=== PATIENT | male | born 1960 | race Caucasian/White ===

== ENCOUNTER 2016-11-14 23:06 | Inpatient (IN) | payer MEDICAID ==
[~2016-11-14] VITALS: Ht 180.3 cm; Wt 89.1 kg
[~2016-11-14 23:06] MED LIST: ANTIBIOTICS
[2016-11-15] MEDS ORDERED: morphine 4 MG/ML VIAL IV STA (04:39)
[2016-11-15] MEDS ORDERED: ONDANSETRON 4 MG INJ IV STA (04:39)
--- NOTE | 2016-11-15 04:55 | RADRPT ---
PROCEDURE: CT abdomen and pelvis without intravenous contrast. CLINICAL INDICATION: Pain. TECHNIQUE: CT of the abdomen/pelvis was performed utilizing axial images with reconstructions in s agittal and coronal planes. The administered radiation dose is CTDI 14.4 mGy, DLP 34.3 mGy-cm. COMPARISON: No pertinent prior examinations were submitted for comparison. FINDINGS: Visualized Chest: The visualized lung bases are clear. Abdomen: The spleen, gallbladder,and adrenal glands are unremarkable. There are mild peripancreatic fat in filtrative changes. No regional fluid collections are seen. The liver is diffusely decreased in at tenuation, compatible with hepatic steatosis. The kidneys are without hydronephrosis. No definite urinary calculi are seen. There is no evidence of bowel obstruction. The appendix is normal. No intra-abdominal free air is seen. There is no evidence of intra-abdominal adenopathy or free fluid. Pelvis: There is no evidence of pelvic adenopathy of free fluid. The prostate and bladder are unremarkable. Osseous structures: Unremarkable. IMPRESSION: Mild peripancreatic inflammatory changes compatible with acute pancreatitis. Hepatic steatosis. RPTAT: HIKT .David Bernstein MD, MD Date Time Electronically viewed and signed by .David Bernstein MD, on 11/15/2016 04:54 .T/
[2016-11-15] MEDS ORDERED: SOD CHLORIDE 0.9% 1,000 ML IV ONE (05:00)
[2016-11-15 05:58] LABS: ALBUMIN 4.5 g/dl (3.3-4.9)
[2016-11-15 05:59] LABS: POTASSIUM 4.5 mmol/L (3.5-5.1)
[2016-11-15 06:00] LABS: CREATININE 0.56 mg/dl (0.61-1.24)
[2016-11-15 06:01] LABS: ALBUMIN/GLOBULIN RATIO 1.15; BILIRUBIN,INDIRECT 0.6 mg/dl (0-1.1); BILIRUBIN,TOTAL 0.6 mg/dl (0.2-1.3); CALCIUM 9.2 mg/dl (8.4-10.2); TOTAL PROTEIN 8.4 g/dl (6.1-8.1)
[2016-11-15 06:28] LABS: BASOPHILS % 0.5 % (0.0-2.0); EOSINOPHILS # 0.1 10^3/ul (0.0-0.5); HEMATOCRIT 44.1 % (42.0-52.0); HEMOGLOBIN 15.1 g/dl (14.0-18.0); LYMPHOCYTES # 1.5 10^3/ul (0.8-2.9); LYMPHOCYTES % 19.5 % (15.0-51.0); MEAN CORPUSCULAR HEMOGLOBIN 30.9 pg (29.0-33.0); MEAN CORPUSCULAR HGB CONC 34.3 g/dl (32.0-37.0); MEAN CORPUSCULAR VOLUME 89.9 fl (82.0-101.0); MEAN PLATELET VOLUME 11.7 fl (7.4-10.4); MONOCYTE # 0.6 10^3/ul (0.3-0.9); NEUTROPHIL # 5.3 10^3/ul (1.6-7.5); PLATELET COUNT 159 10^3/UL (140-440); RED BLOOD COUNT 4.91 10^6/ul (4.70-6.10); RED CELL DISTRIBUTION WIDTH 13.3 % (11.5-14.5); UNCORRECTED WBC 7.5 10^3/ul (4.8-10.8); WHITE BLOOD COUNT 7.5 10^3/ul (4.8-10.8)
[2016-11-15 06:41] LABS: CONDITION 1
[2016-11-15] MEDS ORDERED: ACETAMINOPHEN 650 MG SUPP PR PRN (08:30)
[2016-11-15] MEDS ORDERED: ONDANSETRON 4 MG INJ IV PRN (08:30)
[2016-11-15] MEDS ORDERED: NACL 0.9% 3 ML SYG IV SCH (08:30)
--- NOTE | 2016-11-15 10:00 | HP ---
DATE OF ADMISSION: 11/15/2016 The patient is a 56-year-old male with no significant past medical history who presented to the [facility] with a chief complaint of abdominal pain. He stated that lately he has been having diffuse abdominal pain as well as bloating and a sensation of fullness. He reported nausea but no vomiting. When he presented to the ER, his vitals were stable. Laboratory value was notable for a lipase of 6600 and a glucose of around 280. CT abdomen and pelvis was done and it showed findings c ompatible with acute pancreatitis, and the patient will be hospitalized for that reason. He denied any chest pain, shortness of breath. REVIEW OF SYSTEMS: A 12-point review was performed, negative except as mentioned in HPI. PAST MEDICAL HISTORY: Denies. PAST SURGICAL HISTORY: Denies. SOCIAL HISTORY: Denied a history of alcohol, tobacco, or illicit drug use. ALLERGIES: NO KNOWN DRUG ALLERGIES. HOME MEDICATIONS: None. PHYSICAL EXAMINATION: VITAL SIGNS: Stable. GENERAL: No acute distress, answering questions appropriately, and able to speak in full sentences. HEENT: No obvious head deformity. Pupils are reactive to light. Extraocular muscles intact. CARDIOVASCULAR: Regular rate and rhythm. No extra sounds. LUNGS: Clear. ABDOMEN: Soft. There is tenderness diffusely to deep palpation with no guarding, no rebound tender ness, no rigidity. There are positive bowel sounds. EXTREMITIES: No edema. NEUROLOGIC: No focal deficits. LABORATORY: Glucose 288. Lipase almost 6600. IMAGING: CT abdomen and pelvis shows findings compatible with acute pancreatitis. IMPRESSION: 1. Acute pancreatitis. 2. Hypoglycemia. PLAN: Will keep n.p.o. He will receive IV fluids. As mentioned earlier, imaging did not show any gallstones and his liver enzymes are within normal limits. Will check his fasting lipid panel. The patient may also have undiagnosed diabetes given he presented with a glucose of almost 300. Will c heck an A1c. We will provide pain medication and antiemetics as needed. Additional imaging will be considered based on clinical course. Further workup and management per clinical course. Dictated By: XAVIER POLANCO/GALILEA Conf#: [id number] DID#: [id number]
[2016-11-15] MEDS: FAMOTIDINE 20 MG INJ IV SCH ×2 (10:13→21:33)
[2016-11-15] MEDS: SOD CHLORIDE 0.9% 1,000 ML IV SCH ×2 (10:13→17:55)
[2016-11-15 10:51] VITALS: BP 165/83; PULSE 70; RESP 18
[2016-11-15 10:57] VITALS: Ht 180.3 cm; Wt 89.1 kg
--- NOTE | 2016-11-15 11:19 | PN ---
Date/Time of Note Date/Time of Note DATE: 11/15/16 TIME: 11:16 Assessment/Plan VTE Prophylaxis VTE Prophylaxis Intervention: LMWH Lines/Catheters [facility] Saline Lock Assessment/Plan Chief Complaint/Hosp Course A/P: 1. Acute pancreatitis, stable. Continue IV fluids. Start diet in am. 2. Diabetes possibly new. Start diabetic education/insulin. 3. Probable alcohol use status post counseling. Had P1 4. Chronic hypertension/metabolic syndrome 5. Likely fatty liver disease Problems: Subjective 24 Hr Interval Summary Free Text/Dictation Hospitalist coverage: Less pain. No nausea vomiting. States he had milk lately. No previous pancreatitis. States he had 6 large beers. Denies any hard liquor Exam/Review of Systems Vital Signs Vitals Vital Signs Date Time Temp Pulse Resp B/P Pulse Ox O2 Delivery O2 Flow Rate FiO2 11/15/16 10:51 98.2 70 18 165/83 98 Room Air Exam Constitutional: alert Respiratory: clear to auscultation Cardiovascular: regular rate and rhythm Gastrointestinal: non-tender (nondistended, no RG. No flank ecchymosis.), soft Extremities: other (no edema) Results Result Diagram: 11/15/16 0427 11/15/16 0413 Results 24 hrs Laboratory Tests Test 11/15/16 04:13 11/15/16 04:27 Alanine Aminotransferase (ALT/SGPT) 25 Albumin 4.5 Albumin/Globulin Ratio 1.15 Alkaline Phosphatase 113 Anion Gap 22 H Aspartate Amino Transf (AST/SGOT) 20 Blood Urea Nitrogen 12 Calcium Level 9.2 Carbon Dioxide Level 26 Chloride Level 98 Creatinine 0.56 L Direct Bilirubin 0.00 Globulin 3.90 H Glucose Level 284 H Indirect Bilirubin 0.6 Lipase 6587 H Potassium Level 4.5 Sodium Level 141 Total Bilirubin 0.6 Total Protein 8.4 H Basophils # 0.0 Basophils % 0.5 Blood Morphology Comment Eosinophils # 0.1 Eosinophils % 1.0 Hematocrit 44.1 Hemoglobin 15.1 Lymphocytes # 1.5 Lymphocytes % 19.5 Mean Corpuscular Hemoglobin 30.9 Mean Corpuscular Hemoglobin Concent 34.3 Mean Corpuscular Volume 89.9 Mean Platelet Volume 11.7 H Monocytes # 0.6 Monocytes % 8.0 Neutrophils # 5.3 Neutrophils % 71.0 Nucleated Red Blood Cells # 0.0 Nucleated Red Blood Cells % 0.0 Platelet Count 159 Red Blood Count 4.91 Red Cell Distribution Width 13.3 White Blood Count 7.5 Medications Medications Current Medications Sodium Chloride (NS) 1,000 ml @ 125 mls/hr Q8H IV Last administered on 10:13; Admin Dose 125 MLS/HR; Start 11/15/16 at 08:02 Ondansetron HCl (Zofran Inj) 4 mg Q6H PRN IV NAUSEA AND/OR VOMITING; Start at 08:30 Acetaminophen (Tylenol Supp) 650 mg Q6H PRN [place] PAIN LEVEL 1-3 OR FEVER; Start 11/15/16 at 08:30 Morphine Sulfate (morphine) 4 mg Q4H PRN IV PAIN; Start 11/15/16 at 08:30 Famotidine (Pepcid Iv) 20 mg Q12 IV Last administered on 11/15/16 10:13; Admin Dose 20 MG; Start 11/15/16 at 09:00 RADAMES MONTES MD Nov 15, 2016 11:19
[2016-11-15] MEDS ORDERED: HYPOGLYCEMIA PROTOCOL when Glucose is <70 mg/dL or symptomatic <90 mg/dL. XX ONE (11:30)
[2016-11-15] MEDS ORDERED: Discontinue Glyburide, Glipizide, and/or Glimepiride prior to starting Insulin XX ONE (11:30)
[2016-11-15] MEDS ORDERED: GLUCOSE GEL 15 GRAM TUBE BUCCAL PRN (12:00)
[2016-11-15] MEDS ORDERED: GLUCAGON 1 MG INJ IM PRN (12:00)
[2016-11-15] MEDS ORDERED: DEXTROSE 50% 50 ML SYRINGE IV PRN ×2 (12:00)
[2016-11-15] MEDS ORDERED: GLUCOSE GEL 15 GRAM TUBE PO PRN ×2 (12:00)
[2016-11-15] MEDS: THIAMINE 100 MG TAB PO SCH (12:57)
[2016-11-15] MEDS: ENOXAPARIN 40 MG/0.4 ML SYG SC SCH (12:58)
[2016-11-15] MEDS: INSULIN ASPART [NOVOLOG] 3 ML PEN SC SCH ×5 (13:54→21:22)
[2016-11-15] MEDS ORDERED: DIATR MEGLU/DIATRIZOATE SODIUM 120 ML BTL ONE (15:58)
[2016-11-15 20:36] VITALS: BP 136/73; RESP 19
[2016-11-15] MEDS ORDERED: INSULIN GLARGINE [LANtus] 3 ML PEN SC SCH (21:00)
[2016-11-16] MEDS: ACCUCHECK XX SCH (02:00)
[2016-11-16] MEDS: SOD CHLORIDE 0.9% 1,000 ML IV SCH ×4 (03:50→22:38)
[2016-11-16 06:03] LABS: EOSINOPHILS # 0.1 10^3/ul (0.0-0.5); EOSINOPHILS % 1.1 % (0.0-7.0); HEMATOCRIT 41.7 % (42.0-52.0); HEMOGLOBIN 14.1 g/dl (14.0-18.0); LYMPHOCYTES # 1.9 10^3/ul (0.8-2.9); LYMPHOCYTES % 25.3 % (15.0-51.0); MEAN CORPUSCULAR HEMOGLOBIN 30.4 pg (29.0-33.0); MEAN CORPUSCULAR HGB CONC 33.9 g/dl (32.0-37.0); MEAN CORPUSCULAR VOLUME 89.6 fl (82.0-101.0); MONOCYTE # 0.5 10^3/ul (0.3-0.9); MONOCYTES % 6.8 % (0.0-11.0); NEUTROPHILS % 66.8 % (39.0-77.0); PLATELET COUNT 149 10^3/UL (140-440); RED BLOOD COUNT 4.66 10^6/ul (4.70-6.10); UNCORRECTED WBC 7.5 10^3/ul (4.8-10.8); WHITE BLOOD COUNT 7.5 10^3/ul (4.8-10.8)
[2016-11-16 06:10] LABS: INR 1.04; PROTIME 13.6 Sec (12.2-14.2); PT RATIO 1.1
[2016-11-16 06:18] LABS: ALBUMIN 3.3 g/dl (3.3-4.9)
[2016-11-16 06:21] LABS: ALBUMIN/GLOBULIN RATIO 1.13; BILIRUBIN,INDIRECT 0.5 mg/dl (0-1.1); BILIRUBIN,TOTAL 0.5 mg/dl (0.2-1.3); CREATININE 0.51 mg/dl (0.61-1.24); TOTAL PROTEIN 6.2 g/dl (6.1-8.1)
[2016-11-16 06:22] LABS: CALCIUM 8.4 mg/dl (8.4-10.2); CHOL/HDL RATIO 5.3 RATIO; MAGNESIUM 1.9 mg/dl (1.7-2.5); PHOSPHORUS 3.6 mg/dl (2.5-4.9)
[2016-11-16 06:27] LABS: CONDITION 1
[2016-11-16 07:24] LABS: LACTATE DEHYDROGENASE 490 IU/L (313-618)
[2016-11-16] MEDS: INSULIN ASPART [NOVOLOG] 3 ML PEN SC SCH ×7 (08:17→21:00)
[2016-11-16] MEDS: ENOXAPARIN 40 MG/0.4 ML SYG SC SCH (08:18)
[2016-11-16] MEDS: THIAMINE 100 MG TAB PO SCH (08:18)
[2016-11-16] MEDS: FAMOTIDINE 20 MG INJ IV SCH (08:18)
[2016-11-16 08:23] VITALS: BP 157/77; RESP 20
[2016-11-16] MEDS ORDERED: INFLUENZA VIRUS VACCINE 0.5 ML (DISPENSING) IM* ONE (09:00)
--- NOTE | 2016-11-16 10:48 | RADRPT ---
PROCEDURE: XR Chest. CLINICAL INDICATION: Cough TECHNIQUE: 2 AP views of the chest were obtained COMPARISON: None. FINDINGS: No focal airspace opacification, pleural effusion or pneumothorax is seen. The cardiomediastinal si lhouette is within normal limits for size. The osseous structures are unremarkable. IMPRESSION: No radiographic evidence of acute cardiopulmonary disease. RPTAT: HH .Ewelina Stephenson MD, MD Date Time Electronically viewed and signed by .Ewelina Stephenson MD, on 11/16/2016 10:48 .G/
[2016-11-16] MEDS: hydrALAzine 20 MG INJ IV PRN (12:05)
--- NOTE | 2016-11-16 15:27 | PN ---
Date/Time of Note Date/Time of Note DATE: 11/16/16 TIME: 15:23 Assessment/Plan VTE Prophylaxis VTE Prophylaxis Intervention: SCD's Lines/Catheters IV Catheter Type (from Nrs): Peripheral IV Assessment/Plan Chief Complaint/Hosp Course Assessment and plan 1. Acute pancreatitis. Patient did admit to drinking 3 40 ounces of beer a day. Patient advised about alcohol cessation. Continue on IV fluids on for now. Still noted with pain with pain on midepigastric area. Keep npo for now. 2. Suspect new onset diabetes. Patient noted with A1c of 11.4. bee worker following. Continue on insulin regimen for now. 3. History of hypertension. Continue antihypertensives and adjust as needed 4. Alcohol abuse. Patient educated about cessation. Disposition and plan: Await clinical improvement of pancreatitis. We'll start on diet once pain results. Discussed plan of care with Dr. Parker Problems: Subjective 24 Hr Interval Summary Free Text/Dictation Still reports having some abdominal pain on midepigastric area Exam/Review of Systems Vital Signs Vitals Vital Signs Date Time Temp Pulse Resp B/P Pulse Ox O2 Delivery O2 Flow Rate FiO2 11/16/16 08:23 99.2 85 20 157/77 97 11/15/16 10:51 Room Air Intake and Output 11/15/16 11/15/16 11/16/16 15:00 23:00 07:00 Intake Total 250 ml Balance 250 ml Exam General: No acute signs or symptoms of distress Eyes: pupils equal round, Anicteric sclera Neck: Supple nontender, no JVD Cardiac: S1, S2 auscultated, regular rhythm and rate Pulmonary: No coarse rhonchi or breathing auscultated GI: Pain upon palpation midepigastric area Extremities: No edema bilateral lower extremities Skin: Clean dry and intact Neurologic: Alert to person place and time and situation Results Result Diagram: 11/16/16 0507 11/16/16 0507 Results 24 hrs Laboratory Tests Test 11/15/16 17:12 11/15/16 21:13 11/16/16 02:25 11/16/16 05:07 Bedside Glucose 179 199 186 Alanine Aminotransferase (ALT/SGPT) 22 Albumin 3.3 # Albumin/Globulin Ratio 1.13 Alkaline Phosphatase 78 Anion Gap 15 # Aspartate Amino Transf (AST/SGOT) 15 Basophils # 0.0 Basophils % 0.0 Blood Morphology Comment Blood Urea Nitrogen 7 Calcium Level 8.4 Carbon Dioxide Level 25 Chloride Level 104 Cholesterol Level 171 Cholesterol/HDL Ratio 5.3 Creatinine 0.51 L Direct Bilirubin 0.00 Eosinophils # 0.1 Eosinophils % 1.1 Globulin 2.90 Glucose Level 169 # HDL Cholesterol 32 Hematocrit 41.7 L Hemoglobin 14.1 Hemoglobin A1c 11.4 H INR International Normalized Ratio 1.04 Indirect Bilirubin 0.5 LDL Cholesterol, Calculated 109 Lactate Dehydrogenase 490 Lipase 4553 H Lymphocytes # 1.9 Lymphocytes % 25.3 Magnesium Level 1.9 Mean Corpuscular Hemoglobin 30.4 Mean Corpuscular Hemoglobin Concent 33.9 Mean Corpuscular Volume 89.6 Mean Platelet Volume 11.0 H Monocytes # 0.5 Monocytes % 6.8 Neutrophils # 5.0 Neutrophils % 66.8 Nucleated Red Blood Cells # 0.0 Nucleated Red Blood Cells % 0.0 Phosphorus Level 3.6 Platelet Count 149 Potassium Level 4.0 Prothrombin Time 13.6 Prothrombin Time Ratio 1.1 Red Blood Count 4.66 L Red Cell Distribution Width 13.0 Sodium Level 140 Thyroid Stimulating Hormone (TSH) 1.330 Total Bilirubin 0.5 Total Protein 6.2 # Triglycerides Level 151 H White Blood Count 7.5 Test 11/16/16 07:56 11/16/16 11:55 Bedside Glucose 163 182 Medications Medications Current Medications Sodium Chloride (NS) 1,000 ml @ 125 mls/hr Q8H IV Last administered on 12:05; Admin Dose 125 MLS/HR; Start 11/15/16 at 08:02 Ondansetron HCl (Zofran Inj) 4 mg Q6H PRN IV NAUSEA AND/OR VOMITING; Start at 08:30 Acetaminophen (Tylenol Supp) 650 mg Q6H PRN [place] PAIN LEVEL 1-3 OR FEVER Last administered on 11/15/16 21:26; Admin Dose 650 MG; Start 11/15/16 at 08:30 Morphine Sulfate (morphine) 4 mg Q4H PRN IV PAIN; Start 11/15/16 at 08:30 Famotidine (Pepcid Iv) 20 mg Q12 IV Last administered on 11/16/16 08:18; Admin Dose 20 MG; Start 11/15/16 at 09:00 Thiamine HCl (Vitamin B1) 100 mg DAILY PO Last administered on 11/16/16 08:18 ; Admin Dose 100 MG; Start 11/15/16 at 11:30 Enoxaparin Sodium (Lovenox) 40 mg DAILY SC Last administered on 11/16/16 08:18 ; Admin Dose 40 MG; Start 11/15/16 at 11:30 Diagnostic Test (Pha) (Accucheck) 1 ea 02 XX Last administered on 11/16/16 02: 00; Admin Dose 1 EA; Start 11/16/16 at 02:00 Miscellaneous Information 1 ea NOTE XX ; Start 11/15/16 at 12:00 Glucose (Glutose) 15 gm Q15M PRN PO DECREASED GLUCOSE; Start 11/15/16 at 12:00 Glucose (Glutose) 22.5 gm Q15M PRN PO DECREASED GLUCOSE; Start 11/15/16 at 12: 00 Dextrose (D50w Syringe) 25 ml Q15M PRN IV DECREASED GLUCOSE; Start 11/15/16 at 12:00 Dextrose (D50w Syringe) 50 ml Q15M PRN IV DECREASED GLUCOSE; Start 11/15/16 at 12:00 Glucagon (Glucagen) 1 mg Q15M PRN IM DECREASED GLUCOSE; Start 11/15/16 at 12:00 Glucose (Glutose) 15 gm Q15M PRN BUCCAL DECREASED GLUCOSE; Start 11/15/16 at 12 :00 Insulin Glargine (Lantus) 13 unit HS SC ; Start 11/16/16 at 21:00 Hydralazine HCl (Apresoline) 10 mg Q4H PRN IV sbp>160 Last administered on 11/16 12:05; Admin Dose 10 MG; Start 11/16/16 at 11:00 PEGGY DOBSON Nov 16, 2016 15:27
[2016-11-16 19:39] VITALS: BP 151/68; RESP 18
[2016-11-16] MEDS: FAMOTIDINE 20 MG TAB PO SCH (21:01)
[2016-11-16] MEDS: INSULIN GLARGINE [LANtus] 3 ML PEN SC SCH (21:07)
[2016-11-17] MEDS: ACCUCHECK XX SCH (02:00)
[2016-11-17 06:02] LABS: BASOPHIL # 0.1 10^3/ul (0.0-0.1); BASOPHILS % 0.6 % (0.0-2.0); EOSINOPHILS # 0.1 10^3/ul (0.0-0.5); EOSINOPHILS % 1.2 % (0.0-7.0); HEMATOCRIT 41.5 % (42.0-52.0); HEMOGLOBIN 14.3 g/dl (14.0-18.0); LYMPHOCYTES % 21.8 % (15.0-51.0); MEAN CORPUSCULAR HEMOGLOBIN 30.8 pg (29.0-33.0); MEAN CORPUSCULAR HGB CONC 34.5 g/dl (32.0-37.0); MEAN CORPUSCULAR VOLUME 89.3 fl (82.0-101.0); MEAN PLATELET VOLUME 10.7 fl (7.4-10.4); MONOCYTE # 0.7 10^3/ul (0.3-0.9); MONOCYTES % 7.5 % (0.0-11.0); NEUTROPHIL # 6.2 10^3/ul (1.6-7.5); NEUTROPHILS % 68.9 % (39.0-77.0); PLATELET COUNT 165 10^3/UL (140-440); RED BLOOD COUNT 4.65 10^6/ul (4.70-6.10)
[2016-11-17 06:13] LABS: CONDITION 1
[2016-11-17] MEDS: SOD CHLORIDE 0.9% 1,000 ML IV SCH ×2 (06:19→17:22)
[2016-11-17 06:25] LABS: POTASSIUM 3.7 mmol/L (3.5-5.1)
[2016-11-17 06:27] LABS: CREATININE 0.52 mg/dl (0.61-1.24)
[2016-11-17 06:28] LABS: CALCIUM 8.5 mg/dl (8.4-10.2)
[2016-11-17 07:41] VITALS: BP 145/73; RESP 18
[2016-11-17] MEDS: INSULIN ASPART [NOVOLOG] 3 ML PEN SC SCH ×7 (08:00→20:27)
[2016-11-17] MEDS: morphine 4 MG/ML VIAL IV PRN ×2 (08:49→20:39)
[2016-11-17] MEDS: FAMOTIDINE 20 MG TAB PO SCH (08:49)
[2016-11-17] MEDS: THIAMINE 100 MG TAB PO SCH (08:49)
[2016-11-17] MEDS: ENOXAPARIN 40 MG/0.4 ML SYG SC SCH (08:51)
--- NOTE | 2016-11-17 13:57 | PN ---
Date/Time of Note Date/Time of Note DATE: 11/17/16 TIME: 13:56 Assessment/Plan VTE Prophylaxis VTE Prophylaxis Intervention: SCD's Lines/Catheters [facility]from [facility] Saline Lock Assessment/Plan Chief Complaint/Hosp Course Assessment and plan 1. Acute pancreatitis. Patient did admit to drinking 3 40 ounces of beer a day. Patient advised about alcohol cessation. Continue on IV fluids on for now. Still noted with pain with pain on midepigastric area. Keep npo for now. 2. Suspect new onset diabetes. Patient noted with A1c of 11.4. landing signal officer following. Continue on insulin regimen for now. 3. History of hypertension. Continue antihypertensives and adjust as needed 4. Alcohol abuse. Patient educated about cessation. Disposition and plan: Await clinical improvement of pancreatitis. Continue IV fluid. Monitor lipase. Start on oral diet once pain resolved Discussed plan of care with Dr. Parker Problems: Subjective 24 Hr Interval Summary Free Text/Dictation Still with abdominal pain. Reports little less today. No other specific complaints. Exam/Review of Systems Vital Signs Vitals Vital Signs Date Time Temp Pulse Resp B/P Pulse Ox O2 Delivery O2 Flow Rate FiO2 11/17/16 07:41 98.7 79 18 145/73 98 11/15/16 10:51 Room Air Intake and Output 11/16/16 11/16/16 11/17/16 14:59 22:59 06:59 Intake Total 1230 ml 2440 ml 1600 ml Balance 1230 ml 2440 ml 1600 ml Exam General: No acute signs or symptoms of distress Eyes: pupils equal round, Anicteric sclera Neck: Supple nontender, no JVD Cardiac: S1, S2 auscultated, regular rhythm and rate Pulmonary: No coarse rhonchi or breathing auscultated GI: Pain upon palpation midepigastric area Extremities: No edema bilateral lower extremities Skin: Clean dry and intact Neurologic: Alert to person place and time and situation Results Result Diagram: 11/17/16 0510 11/17/16 0510 Results 24 hrs Laboratory Tests Test 11/16/16 17:16 11/16/16 21:03 11/17/16 05:10 11/17/16 07:42 Bedside Glucose 124 116 119 Anion Gap 19 H Basophils # 0.1 Basophils % 0.6 Blood Morphology Comment Blood Urea Nitrogen 5 L Calcium Level 8.5 Carbon Dioxide Level 24 Chloride Level 103 Creatinine 0.52 L Eosinophils # 0.1 Eosinophils % 1.2 Glucose Level 118 # Hematocrit 41.5 L Hemoglobin 14.3 Lipase 4777 H Lymphocytes # 2.0 Lymphocytes % 21.8 Mean Corpuscular Hemoglobin 30.8 Mean Corpuscular Hemoglobin Concent 34.5 Mean Corpuscular Volume 89.3 Mean Platelet Volume 10.7 H Monocytes # 0.7 Monocytes % 7.5 Neutrophils # 6.2 Neutrophils % 68.9 Nucleated Red Blood Cells # 0.0 Nucleated Red Blood Cells % 0.0 Platelet Count 165 Potassium Level 3.7 Red Blood Count 4.65 L Red Cell Distribution Width 13.0 Sodium Level 142 White Blood Count 9.0 Test 11/17/16 11:23 Bedside Glucose 178 Medications Medications Current Medications Sodium Chloride (NS) 1,000 ml @ 125 mls/hr Q8H IV Last administered on 06:19; Admin Dose 125 MLS/HR; Start 11/15/16 at 08:02 Ondansetron HCl (Zofran Inj) 4 mg Q6H PRN IV NAUSEA AND/OR VOMITING; Start at 08:30 Acetaminophen (Tylenol Supp) 650 mg Q6H PRN [place] PAIN LEVEL 1-3 OR FEVER Last administered on 11/15/16 21:26; Admin Dose 650 MG; Start 11/15/16 at 08:30 Morphine Sulfate (morphine) 4 mg Q4H PRN IV PAIN Last administered on 08:49; Admin Dose 4 MG; Start 11/15/16 at 08:30 Thiamine HCl (Vitamin B1) 100 mg DAILY PO Last administered on 11/17/16 08:49 ; Admin Dose 100 MG; Start 11/15/16 at 11:30 Enoxaparin Sodium (Lovenox) 40 mg DAILY SC Last administered on 11/17/16 08:51 ; Admin Dose 40 MG; Start 11/15/16 at 11:30 Diagnostic Test (Pha) (Accucheck) 1 ea 02 XX Last administered on 11/16/16 02: 00; Admin Dose 1 EA; Start 11/16/16 at 02:00 Miscellaneous Information 1 ea NOTE XX ; Start 11/15/16 at 12:00 Glucose (Glutose) 15 gm Q15M PRN PO DECREASED GLUCOSE; Start 11/15/16 at 12:00 Glucose (Glutose) 22.5 gm Q15M PRN PO DECREASED GLUCOSE; Start 11/15/16 at 12: 00 Dextrose (D50w Syringe) 25 ml Q15M PRN IV DECREASED GLUCOSE; Start 11/15/16 at 12:00 Dextrose (D50w Syringe) 50 ml Q15M PRN IV DECREASED GLUCOSE; Start 11/15/16 at 12:00 Glucagon (Glucagen) 1 mg Q15M PRN IM DECREASED GLUCOSE; Start 11/15/16 at 12:00 Glucose (Glutose) 15 gm Q15M PRN BUCCAL DECREASED GLUCOSE; Start 11/15/16 at 12 :00 Insulin Glargine (Lantus) 13 unit HS SC Last administered on 11/16/16 21:07; Admin Dose 13 UNIT; Start 11/16/16 at 21:00 Hydralazine HCl (Apresoline) 10 mg Q4H PRN IV sbp>160 Last administered on 11/16 12:05; Admin Dose 10 MG; Start 11/16/16 at 11:00 Famotidine (Pepcid) 20 mg BID PO Last administered on 11/17/16 08:49; Admin Dose 20 MG; Start 11/16/16 at 21:00 PEGGY DOBSON Nov 17, 2016 13:57
[2016-11-17 20:26] VITALS: BP 158/79; RESP 20
[2016-11-17] MEDS: INSULIN GLARGINE [LANtus] 3 ML PEN SC SCH (20:41)
[2016-11-17] MEDS: FAMOTIDINE 20 MG INJ IV SCH (20:47)
[2016-11-17 22:54] VITALS: BP 165/77; PULSE 72
[2016-11-17] MEDS: hydrALAzine 20 MG INJ IV PRN (22:56)
[2016-11-18] MEDS: SOD CHLORIDE 0.9% 1,000 ML IV SCH ×3 (00:02→17:23)
[2016-11-18 00:05] VITALS: BP 144/74; PULSE 77
[2016-11-18] MEDS: ACCUCHECK XX SCH (01:47)
[2016-11-18 06:12] LABS: POTASSIUM 3.1 mmol/L (3.5-5.1)
[2016-11-18 06:15] LABS: CREATININE 0.57 mg/dl (0.61-1.24)
[2016-11-18 06:16] LABS: CALCIUM 8.4 mg/dl (8.4-10.2)
[2016-11-18 06:27] LABS: BASOPHILS % 0.4 % (0.0-2.0); EOSINOPHILS # 0.2 10^3/ul (0.0-0.5); EOSINOPHILS % 2.6 % (0.0-7.0); HEMATOCRIT 41.1 % (42.0-52.0); HEMOGLOBIN 13.8 g/dl (14.0-18.0); LYMPHOCYTES # 1.7 10^3/ul (0.8-2.9); LYMPHOCYTES % 23.5 % (15.0-51.0); MEAN CORPUSCULAR HEMOGLOBIN 30.4 pg (29.0-33.0); MEAN CORPUSCULAR HGB CONC 33.7 g/dl (32.0-37.0); MEAN CORPUSCULAR VOLUME 90.4 fl (82.0-101.0); MEAN PLATELET VOLUME 9.8 fl (7.4-10.4); MONOCYTE # 0.7 10^3/ul (0.3-0.9); MONOCYTES % 9.3 % (0.0-11.0); NEUTROPHIL # 4.5 10^3/ul (1.6-7.5); NEUTROPHILS % 64.2 % (39.0-77.0); PLATELET COUNT 174 10^3/UL (140-440); RED BLOOD COUNT 4.55 10^6/ul (4.70-6.10); UNCORRECTED WBC 7.1 10^3/ul (4.8-10.8); WHITE BLOOD COUNT 7.1 10^3/ul (4.8-10.8)
[2016-11-18 06:51] LABS: CONDITION 1
[2016-11-18 07:50] VITALS: BP 121/70; RESP 16
[2016-11-18] MEDS: INSULIN ASPART [NOVOLOG] 3 ML PEN SC SCH ×5 (08:00→20:06)
[2016-11-18] MEDS: FAMOTIDINE 20 MG INJ IV SCH ×2 (08:31→20:04)
[2016-11-18] MEDS: ENOXAPARIN 40 MG/0.4 ML SYG SC SCH (08:31)
[2016-11-18] MEDS ORDERED: POTASSIUM CHLORIDE 250 ML IVPB ONE (13:00)
--- NOTE | 2016-11-18 14:08 | PN ---
Date/Time of Note Date/Time of Note DATE: 11/18/16 TIME: 14:05 Assessment/Plan VTE Prophylaxis VTE Prophylaxis Intervention: SCD's Lines/Catheters IV Catheter Type (from Nrs): Saline Lock Assessment/Plan Chief Complaint/Hosp Course Assessment and plan 1. Acute pancreatitis. Patient did admit to drinking 3 40 ounces of beer a day. Patient advised about alcohol cessation. Continue on IV fluids on for now. Still noted with pain with pain on midepigastric area. But little less. Keep npo for now. 2. Suspect new onset diabetes. Patient noted with A1c of 11.4. cosmetology educator following. Continue on insulin regimen for now. 3. History of hypertension. Continue antihypertensives and adjust as needed 4. Alcohol abuse. Patient educated about cessation. Disposition and plan: Continue npo. Of note likely still levels are downward turning. We'll follow-up in a.m. We'll start on diet once pain resolved Discussed plan of care with Dr. Parker Problems: Subjective 24 Hr Interval Summary Free Text/Dictation Still with some abdominal pain but little less today Exam/Review of Systems Vital Signs Vitals Vital Signs Date Time Temp Pulse Resp B/P Pulse Ox O2 Delivery O2 Flow Rate FiO2 11/18/16 07:50 98.2 88 16 121/70 98 11/15/16 10:51 Room Air Intake and Output 11/17/16 11/17/16 11/18/16 15:00 23:00 07:00 Intake Total 1600 ml 1450 ml Balance 1600 ml 1450 ml Exam General: No acute signs or symptoms of distress Eyes: pupils equal round, Anicteric sclera Neck: Supple nontender, no JVD Cardiac: S1, S2 auscultated, regular rhythm and rate Pulmonary: No coarse rhonchi or breathing auscultated GI: Minimally tender on palpation of upper abdomen Extremities: No edema bilateral lower extremities Skin: Clean dry and intact Neurologic: Alert to person place and time and situation Results Result Diagram: 11/18/16 0550 11/18/16 0520 Results 24 hrs Laboratory Tests Test 11/17/16 17:26 11/17/16 19:52 11/18/16 01:48 11/18/16 05:00 Bedside Glucose 106 90 83 Lipase 3559 H Test 11/18/16 05:20 11/18/16 05:50 11/18/16 08:03 11/18/16 11:15 Anion Gap 15 Blood Urea Nitrogen 6 L Calcium Level 8.4 Carbon Dioxide Level 25 Chloride Level 105 Creatinine 0.57 L Glucose Level 75 # Potassium Level 3.1 L Sodium Level 142 Basophils # 0.0 Basophils % 0.4 Eosinophils # 0.2 Eosinophils % 2.6 Hematocrit 41.1 L Hemoglobin 13.8 L Lymphocytes # 1.7 Lymphocytes % 23.5 Mean Corpuscular Hemoglobin 30.4 Mean Corpuscular Hemoglobin Concent 33.7 Mean Corpuscular Volume 90.4 Mean Platelet Volume 9.8 Monocytes # 0.7 Monocytes % 9.3 Neutrophils # 4.5 Neutrophils % 64.2 Nucleated Red Blood Cells # 0.0 Nucleated Red Blood Cells % 0.0 Platelet Count 174 Red Blood Count 4.55 L Red Cell Distribution Width 13.0 White Blood Count 7.1 # Bedside Glucose 92 86 Medications Medications Current Medications Sodium Chloride (NS) 1,000 ml @ 125 mls/hr Q8H IV Last administered on 01:49; Admin Dose 125 MLS/HR; Start 11/15/16 at 08:02 Ondansetron HCl (Zofran Inj) 4 mg Q6H PRN IV NAUSEA AND/OR VOMITING; Start at 08:30 Acetaminophen (Tylenol Supp) 650 mg Q6H PRN [place] PAIN LEVEL 1-3 OR FEVER Last administered on 11/15/16 21:26; Admin Dose 650 MG; Start 11/15/16 at 08:30 Morphine Sulfate (morphine) 4 mg Q4H PRN IV PAIN Last administered on 20:39; Admin Dose 4 MG; Start 11/15/16 at 08:30 Enoxaparin Sodium (Lovenox) 40 mg DAILY SC Last administered on 11/18/16 08:31 ; Admin Dose 40 MG; Start 11/15/16 at 11:30 Diagnostic Test (Pha) (Accucheck) 1 ea 02 XX Last administered on 11/16/16 02: 00; Admin Dose 1 EA; Start 11/16/16 at 02:00 Miscellaneous Information 1 ea NOTE XX ; Start 11/15/16 at 12:00 Glucose (Glutose) 15 gm Q15M PRN PO DECREASED GLUCOSE; Start 11/15/16 at 12:00 Glucose (Glutose) 22.5 gm Q15M PRN PO DECREASED GLUCOSE; Start 11/15/16 at 12: 00 Dextrose (D50w Syringe) 25 ml Q15M PRN IV DECREASED GLUCOSE; Start 11/15/16 at 12:00 Dextrose (D50w Syringe) 50 ml Q15M PRN IV DECREASED GLUCOSE; Start 11/15/16 at 12:00 Glucagon (Glucagen) 1 mg Q15M PRN IM DECREASED GLUCOSE; Start 11/15/16 at 12:00 Glucose (Glutose) 15 gm Q15M PRN BUCCAL DECREASED GLUCOSE; Start 11/15/16 at 12 :00 Insulin Glargine (Lantus) 13 unit HS SC Last administered on 11/17/16 20:41; Admin Dose 13 UNIT; Start 11/16/16 at 21:00 Hydralazine HCl (Apresoline) 10 mg Q4H PRN IV sbp>160 Last administered on 11/17 22:56; Admin Dose 10 MG; Start 11/16/16 at 11:00 Famotidine 20 mg 20 mg BID IV Last administered on 11/18/16 08:31; Admin Dose 20 MG; Start 11/17/16 at 21:00 Potassium Chloride (KCl 40 MEQ/250 ML NS) 250 ml @ 62.5 mls/hr ONCE ONCE IVPB Last administered on 11/18/16 12:27; Admin Dose 62.5 MLS/HR; Start 11/18/16 at 13:00; Stop 11/18/16 at 16:59 PEGGY DOBSON Nov 18, 2016 14:08
[2016-11-18] MEDS: hydrALAzine 20 MG INJ IV PRN (19:57)
[2016-11-18] MEDS: INSULIN GLARGINE [LANtus] 3 ML PEN SC SCH (20:06)
[2016-11-18 20:19] VITALS: BP 171/80; RESP 19
[2016-11-19 00:27] VITALS: BP 133/63
[2016-11-19] MEDS: SOD CHLORIDE 0.9% 1,000 ML IV SCH (00:33)
[2016-11-19] MEDS: ACCUCHECK XX SCH (02:00)
[2016-11-19] MEDS: DEXTROSE 5%-0.45% NACL 1,000 ML IV SCH ×2 (03:00→12:16)
[2016-11-19 05:42] LABS: BASOPHILS % 0.4 % (0.0-2.0); EOSINOPHILS # 0.2 10^3/ul (0.0-0.5); EOSINOPHILS % 2.5 % (0.0-7.0); HEMATOCRIT 39.9 % (42.0-52.0); HEMOGLOBIN 13.8 g/dl (14.0-18.0); LYMPHOCYTES # 1.9 10^3/ul (0.8-2.9); LYMPHOCYTES % 28.2 % (15.0-51.0); MEAN CORPUSCULAR HEMOGLOBIN 30.8 pg (29.0-33.0); MEAN CORPUSCULAR HGB CONC 34.6 g/dl (32.0-37.0); MEAN CORPUSCULAR VOLUME 88.9 fl (82.0-101.0); MONOCYTE # 0.6 10^3/ul (0.3-0.9); MONOCYTES % 9.6 % (0.0-11.0); NEUTROPHIL # 3.9 10^3/ul (1.6-7.5); NEUTROPHILS % 59.3 % (39.0-77.0); PLATELET COUNT 207 10^3/UL (140-440); RED BLOOD COUNT 4.49 10^6/ul (4.70-6.10); RED CELL DISTRIBUTION WIDTH 12.7 % (11.5-14.5); UNCORRECTED WBC 6.7 10^3/ul (4.8-10.8); WHITE BLOOD COUNT 6.7 10^3/ul (4.8-10.8)
[2016-11-19 06:09] LABS: POTASSIUM 3.3 mmol/L (3.5-5.1)
[2016-11-19 06:12] LABS: CREATININE 0.56 mg/dl (0.61-1.24)
[2016-11-19 06:13] LABS: CALCIUM 8.6 mg/dl (8.4-10.2)
[2016-11-19 06:14] LABS: CONDITION 1
[2016-11-19] MEDS: INSULIN ASPART [NOVOLOG] 3 ML PEN SC SCH ×4 (08:00→20:15)
[2016-11-19 08:04] VITALS: BP 135/63; RESP 18
[2016-11-19] MEDS: FAMOTIDINE 20 MG INJ IV SCH ×2 (08:24→21:10)
[2016-11-19] MEDS: ENOXAPARIN 40 MG/0.4 ML SYG SC SCH (08:25)
[2016-11-19] MEDS ORDERED: POTASSIUM CHLORIDE 20 MEQ in DEXTROSE 5%-0.45% NACL 1,000 ML IV SCH (12:22)
--- NOTE | 2016-11-19 13:19 | PN ---
Date/Time of Note Date/Time of Note DATE: 11/19/16 TIME: 13:17 Assessment/Plan VTE Prophylaxis VTE Prophylaxis Intervention: SCD's Lines/Catheters [facility]ter Type (from [facility]): Peripheral IV Urinary Cath still in place: No Assessment/Plan Chief Complaint/Hosp Course Assessment and plan 1. Acute pancreatitis. Patient did admit to drinking 3 40 ounces of beer a day. Patient advised about alcohol cessation. Continue on IV fluids for now. Still with elevated lipase above 3000. Keep npo for now. 2. Suspect new onset diabetes. Patient noted with A1c of 11.4. telehealth nurse educator following. Continue on insulin regimen for now. 3. History of hypertension. Continue antihypertensives and adjust as needed 4. Alcohol abuse. Patient educated about cessation. 5. Hypokalemia. Will monitor and replete as needed Disposition and plan: Discussed with Dr. Parker, Lipase remains elevated. Continue npo for now. Will await further downward trend of lipase Discussed plan of care with Dr. Parker Problems: Subjective 24 Hr Interval Summary Free Text/Dictation no reported abd pain today Exam/Review of Systems Vital Signs Vitals Vital Signs Date Time Temp Pulse Resp B/P Pulse Ox O2 Delivery O2 Flow Rate FiO2 11/19/16 08:04 98.1 73 18 135/63 96 11/15/16 10:51 Room Air Intake and Output 11/18/16 11/18/16 11/19/16 15:00 23:00 07:00 Intake Total 800 ml 1500 ml Balance 800 ml 1500 ml Exam General: No acute signs or symptoms of distress Eyes: pupils equal round, Anicteric sclera Neck: Supple nontender, no JVD Cardiac: S1, S2 auscultated, regular rhythm and rate Pulmonary: No coarse rhonchi or breathing auscultated GI: Minimally tender on palpation of upper abdomen Extremities: No edema bilateral lower extremities Skin: Clean dry and intact Neurologic: Alert to person place and time and situation Results Result Diagram: 11/19/1643911/19/16439 Results 24 hrs Laboratory Tests Test 11/18/16 16:40 11/18/16 19:41 11/19/16 02:01 11/19/16 02:26 Bedside Glucose 71 77 64 L 116 Test 11/19/16 02:41 11/19/16 04:40 11/19/16 07:49 11/19/16 12:11 Bedside Glucose 110 130 149 Anion Gap 16 Basophils # 0.0 Basophils % 0.4 Blood Urea Nitrogen 7 Calcium Level 8.6 Carbon Dioxide Level 23 Chloride Level 106 Creatinine 0.56 L Eosinophils # 0.2 Eosinophils % 2.5 Glucose Level 108 Hematocrit 39.9 L Hemoglobin 13.8 L Lipase 3423 H Lymphocytes # 1.9 Lymphocytes % 28.2 Mean Corpuscular Hemoglobin 30.8 Mean Corpuscular Hemoglobin Concent 34.6 Mean Corpuscular Volume 88.9 Mean Platelet Volume 10.0 Monocytes # 0.6 Monocytes % 9.6 Neutrophils # 3.9 Neutrophils % 59.3 Nucleated Red Blood Cells # 0.0 Nucleated Red Blood Cells % 0.0 Platelet Count 207 Potassium Level 3.3 L Red Blood Count 4.49 L Red Cell Distribution Width 12.7 Sodium Level 142 White Blood Count 6.7 Medications Medications Current Medications Ondansetron HCl (Zofran Inj) 4 mg Q6H PRN IV NAUSEA AND/OR VOMITING; Start at 08:30 Acetaminophen (Tylenol Supp) 650 mg Q6H PRN [place] PAIN LEVEL 1-3 OR FEVER Last administered on 11/15/16 21:26; Admin Dose 650 MG; Start 11/15/16 at 08:30 Morphine Sulfate (morphine) 4 mg Q4H PRN IV PAIN Last administered on 20:39; Admin Dose 4 MG; Start 11/15/16 at 08:30 Enoxaparin Sodium (Lovenox) 40 mg DAILY SC Last administered on 11/19/16 08:25 ; Admin Dose 40 MG; Start 11/15/16 at 11:30 Diagnostic Test (Pha) (Accucheck) 1 ea 02 XX Last administered on 11/16/16 02: 00; Admin Dose 1 EA; Start 11/16/16 at 02:00 Miscellaneous Information 1 ea NOTE XX ; Start 11/15/16 at 12:00 Glucose (Glutose) 15 gm Q15M PRN PO DECREASED GLUCOSE; Start 11/15/16 at 12:00 Glucose (Glutose) 22.5 gm Q15M PRN PO DECREASED GLUCOSE; Start 11/15/16 at 12: 00 Dextrose (D50w Syringe) 25 ml Q15M PRN IV DECREASED GLUCOSE Last administered on 11/19/16 02:10; Admin Dose 25 ML; Start 11/15/16 at 12:00 Dextrose (D50w Syringe) 50 ml Q15M PRN IV DECREASED GLUCOSE; Start 11/15/16 at 12:00 Glucagon (Glucagen) 1 mg Q15M PRN IM DECREASED GLUCOSE; Start 11/15/16 at 12:00 Glucose (Glutose) 15 gm Q15M PRN BUCCAL DECREASED GLUCOSE; Start 11/15/16 at 12 :00 Insulin Glargine (Lantus) 13 unit HS SC Last administered on 11/18/16 20:06; Admin Dose 13 UNIT; Start 11/16/16 at 21:00 Hydralazine HCl (Apresoline) 10 mg Q4H PRN IV sbp>160 Last administered on 11/18 19:57; Admin Dose 10 MG; Start 11/16/16 at 11:00 Famotidine 20 mg 20 mg BID IV Last administered on 11/19/16 08:24; Admin Dose 20 MG; Start 11/17/16 at 21:00 Potassium Chloride/Dextrose/ Sod Cl (D5-1/2ns + KCl 20 Meq) 1,000 ml @ 100 mls/ hr Q10H IV ; Start 11/19/16 at 12:30 PEGGY DOBSON Nov 19, 2016 13:19
[2016-11-19] MEDS: D5W-0.45 NACL + KCL 20 MEQ 1,000 ML IV SCH ×2 (14:14→22:31)
[2016-11-19 20:27] VITALS: BP 180/88; RESP 20
[2016-11-19] MEDS: hydrALAzine 20 MG INJ IV PRN (21:10)
[2016-11-19] MEDS: INSULIN GLARGINE [LANtus] 3 ML PEN SC SCH (21:14)
[2016-11-19 22:30] VITALS: BP 169/82
[2016-11-19 23:15] VITALS: BP 172/86
[2016-11-19] MEDS: hydrALAzine 20 MG INJ IV SCH (23:21)
[2016-11-20] MEDS: ACCUCHECK XX SCH ×2 (01:26→21:24)
[2016-11-20 05:35] VITALS: BP 158/79
[2016-11-20] MEDS: hydrALAzine 20 MG INJ IV SCH ×3 (05:35→21:27)
[2016-11-20 06:12] LABS: POTASSIUM 3.4 mmol/L (3.5-5.1)
[2016-11-20 06:13] LABS: EOSINOPHILS # 0.2 10^3/ul (0.0-0.5); EOSINOPHILS % 3.1 % (0.0-7.0); HEMATOCRIT 41.6 % (42.0-52.0); HEMOGLOBIN 13.9 g/dl (14.0-18.0); LYMPHOCYTES # 1.6 10^3/ul (0.8-2.9); LYMPHOCYTES % 23.2 % (15.0-51.0); MEAN CORPUSCULAR HEMOGLOBIN 30.4 pg (29.0-33.0); MEAN CORPUSCULAR HGB CONC 33.5 g/dl (32.0-37.0); MEAN CORPUSCULAR VOLUME 90.8 fl (82.0-101.0); MONOCYTE # 0.7 10^3/ul (0.3-0.9); MONOCYTES % 10.9 % (0.0-11.0); NEUTROPHIL # 4.2 10^3/ul (1.6-7.5); NEUTROPHILS % 62.8 % (39.0-77.0); PLATELET COUNT 210 10^3/UL (140-440); RED BLOOD COUNT 4.58 10^6/ul (4.70-6.10); RED CELL DISTRIBUTION WIDTH 12.7 % (11.5-14.5); UNCORRECTED WBC 6.7 10^3/ul (4.8-10.8); WHITE BLOOD COUNT 6.7 10^3/ul (4.8-10.8)
[2016-11-20 06:14] LABS: CREATININE 0.5 mg/dl (0.61-1.24)
[2016-11-20 06:15] LABS: CALCIUM 8.4 mg/dl (8.4-10.2)
[2016-11-20 07:01] LABS: CONDITION 1
[2016-11-20 07:48] VITALS: BP 128/74; RESP 20
[2016-11-20] MEDS: FAMOTIDINE 20 MG INJ IV SCH ×2 (09:13→20:38)
[2016-11-20] MEDS: D5W-0.45 NACL + KCL 20 MEQ 1,000 ML IV SCH ×2 (09:13→21:27)
[2016-11-20] MEDS: ENOXAPARIN 40 MG/0.4 ML SYG SC SCH (09:14)
[2016-11-20] MEDS: INSULIN ASPART [NOVOLOG] 3 ML PEN SC SCH ×4 (09:15→20:37)
--- NOTE | 2016-11-20 11:23 | CONS ---
Date/Time of Note Date/Time of Note DATE: 11/20/16 TIME: 11:23 Assessment/Plan Assessment/Plan Additional Assessment/Plan Pancreatitis * MRCP * Review labs * IVF hydration * N.p.o. Alcohol abuse * Encourage abstinence Hypertension Diabetes? Further recommendations depend on clinical course Consultation Date/Type/Reason Admit Date/Time Nov 15, 2016 at 05:25 Type of Consultation: Gastroenterology Reason for Consultation Pancreatitis Hx of Present Illness 56-year-old male that first presented to ED with reports of intense abdominal pain and nausea 1 day. At admission lipase at 6587. Patient has been n.p.o. since November 15 and there is little improvement in lipase level. Presently elevated at 4495. At bedside, patient denies abdominal pain, nausea, vomiting, and diarrhea. Patient denies previous episode and history of liver disease. Patient reports drinking 12-15 beers per day and reports excessive alcohol consumption throughout most of his life. Patient denies previous reports of elevated liver enzymes and or liver problems. Patient reports not having any medical evaluations in lifetime. Plan for MRCP and evaluation of labs. Patient may need ERCP if clinically indicated. Patient and family advised of R/ B/A of procedure and are agreeable to proceed. Past Medical History Medical History: no pertinent history Past Surgical History Past Surgical Hx: no surgical history Social History Alcohol Use: heavy (At 215 beers a day) Smoking Status: Never smoker Exam/Review of Systems Vital Signs Vitals Vital Signs Date Time Temp Pulse Resp B/P Pulse Ox O2 Delivery O2 Flow Rate FiO2 11/20/16 07:48 98.1 90 20 128/74 96 Intake and Output 11/19/16 11/19/16 11/20/16 15:00 23:00 07:00 Intake Total 900 ml 850 ml 650 ml Balance 900 ml 850 ml 650 ml Exam Constitutional: alert, obese, oriented, well developed Psych: nl mood/affect Head: normocephalic Eyes: EOMI, nl conjunctiva, nl lids, nl sclera ENMT: nl external ears & nose, nl lips & teeth, nl nasal mucosa & septum Respiratory: normal air movement Cardiovascular: regular rate and rhythm Gastrointestinal: non-tender, soft Neurological: ACTIVITIES OFFICER II-XII intact Results Result Diagram: 11/20/16 0430 11/20/16 0430 Results 24 hrs Laboratory Tests Test 11/19/16 12:11 11/19/16:08 11/19/16 20:05 11/20/16 04:30 Bedside Glucose 149 151 163 Anion Gap 15 Basophils # 0.0 Basophils % 0.0 Blood Urea Nitrogen 4 L Calcium Level 8.4 Carbon Dioxide Level 24 Chloride Level 106 Creatinine 0.50 L Eosinophils # 0.2 Eosinophils % 3.1 Glucose Level 168 Hematocrit 41.6 L Hemoglobin 13.9 L Lipase 4495 H Lymphocytes # 1.6 Lymphocytes % 23.2 Mean Corpuscular Hemoglobin 30.4 Mean Corpuscular Hemoglobin Concent 33.5 Mean Corpuscular Volume 90.8 Mean Platelet Volume 10.0 Monocytes # 0.7 Monocytes % 10.9 Neutrophils # 4.2 Neutrophils % 62.8 Nucleated Red Blood Cells # 0.0 Nucleated Red Blood Cells % 0.0 Platelet Count 210 Potassium Level 3.4 L Red Blood Count 4.58 L Red Cell Distribution Width 12.7 Sodium Level 142 White Blood Count 6.7 Test 11/20/16 07:55 Bedside Glucose 182 Medications Medications Current Medications Ondansetron HCl (Zofran Inj) 4 mg Q6H PRN IV NAUSEA AND/OR VOMITING; Start at 08:30 Acetaminophen (Tylenol Supp) 650 mg Q6H PRN [place] PAIN LEVEL 1-3 OR FEVER Last administered on 11/15/16 21:26; Admin Dose 650 MG; Start 11/15/16 at 08:30 Morphine Sulfate (morphine) 4 mg Q4H PRN IV PAIN Last administered on 20:39; Admin Dose 4 MG; Start 11/15/16 at 08:30 Enoxaparin Sodium (Lovenox) 40 mg DAILY SC Last administered on 11/20/16 09:14 ; Admin Dose 40 MG; Start 11/15/16 at 11:30 Diagnostic Test (Pha) (Accucheck) 1 ea 02 XX Last administered on 11/16/16 02: 00; Admin Dose 1 EA; Start 11/16/16 at 02:00 Miscellaneous Information 1 ea NOTE XX ; Start 11/15/16 at 12:00 Glucose (Glutose) 15 gm Q15M PRN PO DECREASED GLUCOSE; Start 11/15/16 at 12:00 Glucose (Glutose) 22.5 gm Q15M PRN PO DECREASED GLUCOSE; Start 11/15/16 at 12: 00 Dextrose (D50w Syringe) 25 ml Q15M PRN IV DECREASED GLUCOSE Last administered on 11/19/16 02:10; Admin Dose 25 ML; Start 11/15/16 at 12:00 Dextrose (D50w Syringe) 50 ml Q15M PRN IV DECREASED GLUCOSE; Start 11/15/16 at 12:00 Glucagon (Glucagen) 1 mg Q15M PRN IM DECREASED GLUCOSE; Start 11/15/16 at 12:00 Glucose (Glutose) 15 gm Q15M PRN BUCCAL DECREASED GLUCOSE; Start 11/15/16 at 12 :00 Insulin Glargine (Lantus) 13 unit HS SC Last administered on 11/19/16 21:14; Admin Dose 13 UNIT; Start 11/16/16 at 21:00 Hydralazine HCl (Apresoline) 10 mg Q4H PRN IV sbp>160 Last administered on 11/19 21:10; Admin Dose 10 MG; Start 11/16/16 at 11:00 Famotidine 20 mg 20 mg BID IV Last administered on 11/20/16 09:13; Admin Dose 20 MG; Start 11/17/16 at 21:00 Potassium Chloride/Dextrose/ Sod Cl (D5-1/2ns + KCl 20 Meq) 1,000 ml @ 100 mls/ hr Q10H IV Last administered on 11/20/16 09:13; Admin Dose 100 MLS/HR; Start 11/19/16 at 12:30 Hydralazine HCl 10 mg 10 mg Q8 IV Last administered on 11/20/16 05:35; Admin Dose 10 MG; Start 11/19/16 at 23:00 Potassium Chloride/Sodium Chloride (KCl/NS) 110 ml @ 55 mls/hr ONCE ONCE IVPB ; Start 11/20/16 at 12:00; Stop 11/20/16 at 13:59 JOSÉ MIGUEL GREGORY MD Nov 20, 2016 11:23
[2016-11-20] MEDS ORDERED: POTASSIUM CHLORIDE 20 MEQ in SOD CHLORIDE 0.9% 100 ML IVPB ONE (12:00)
--- NOTE | 2016-11-20 12:14 | PN ---
Date/Time of Note Date/Time of Note DATE: 11/20/16 TIME: 12:13 Assessment/Plan VTE Prophylaxis VTE Prophylaxis Intervention: SCD's Lines/Catheters [facility] Type (from [facility]): Peripheral IV Urinary Cath still in place: No Assessment/Plan Chief Complaint/Hosp Course Assessment and plan 1. Acute pancreatitis. Patient did admit to drinking 3 40 ounces of beer a day. Patient advised about alcohol cessation. Continue on IV fluids for now. Lipase level worsening. Gl Accountant to be consulted 2. Suspect new onset diabetes. Patient noted with A1c of 11.4. novelty twister tender following. Continue on insulin regimen for now. 3. History of hypertension. Continue antihypertensives and adjust as needed 4. Alcohol abuse. Patient educated about cessation. 5. Hypokalemia. Will monitor and replete as needed Disposition and plan: Discussed with Dr. Parker, Lipase remains elevated. We'll get brush material preparer to follow Discussed plan of care with Dr. Parker Problems: Subjective 24 Hr Interval Summary Free Text/Dictation No abdominal pain at this time. Exam/Review of Systems Vital Signs Vitals Vital Signs Date Time Temp Pulse Resp B/P Pulse Ox O2 Delivery O2 Flow Rate FiO2 11/20/16 07:48 98.1 90 20 128/74 96 Intake and Output 11/19/16 11/19/16 11/20/16 14:59 22:59 06:59 Intake Total 900 ml 850 ml 650 ml Balance 900 ml 850 ml 650 ml Exam General: No acute signs or symptoms of distress Eyes: pupils equal round, Anicteric sclera Neck: Supple nontender, no JVD Cardiac: S1, S2 auscultated, regular rhythm and rate Pulmonary: No coarse rhonchi or breathing auscultated GI: Abdomen soft nontender nondistended, bowel sounds active Extremities: No edema bilateral lower extremities Skin: Clean dry and intact Neurologic: Alert to person place and time and situation Results Result Diagram: 11/20/1642911/20/16 043 Results 24 hrs Laboratory Tests Test 11/19/16 17:08 11/19/16 20:05 11/20/16 04:30 11/20/16 07:55 Bedside Glucose 151 163 182 Anion Gap 15 Basophils # 0.0 Basophils % 0.0 Blood Urea Nitrogen 4 L CA 19-9 Antigen 9.5 Calcium Level 8.4 Carbon Dioxide Level 24 Chloride Level 106 Creatinine 0.50 L Eosinophils # 0.2 Eosinophils % 3.1 Glucose Level 168 Hematocrit 41.6 L Hemoglobin 13.9 L Lipase 4495 H Lymphocytes # 1.6 Lymphocytes % 23.2 Mean Corpuscular Hemoglobin 30.4 Mean Corpuscular Hemoglobin Concent 33.5 Mean Corpuscular Volume 90.8 Mean Platelet Volume 10.0 Monocytes # 0.7 Monocytes % 10.9 Neutrophils # 4.2 Neutrophils % 62.8 Nucleated Red Blood Cells # 0.0 Nucleated Red Blood Cells % 0.0 Platelet Count 210 Potassium Level 3.4 L Red Blood Count 4.58 L Red Cell Distribution Width 12.7 Sodium Level 142 White Blood Count 6.7 Test 11/20/16 11:26 Bedside Glucose 161 Medications Medications Current Medications Ondansetron HCl (Zofran Inj) 4 mg Q6H PRN IV NAUSEA AND/OR VOMITING; Start at 08:30 Acetaminophen (Tylenol Supp) 650 mg Q6H PRN [place] PAIN LEVEL 1-3 OR FEVER Last administered on 11/15/16 21:26; Admin Dose 650 MG; Start 11/15/16 at 08:30 Morphine Sulfate (morphine) 4 mg Q4H PRN IV PAIN Last administered on 20:39; Admin Dose 4 MG; Start 11/15/16 at 08:30 Enoxaparin Sodium (Lovenox) 40 mg DAILY SC Last administered on 11/20/16 09:14 ; Admin Dose 40 MG; Start 11/15/16 at 11:30 Diagnostic Test (Pha) (Accucheck) 1 ea 02 XX Last administered on 11/16/16 02: 00; Admin Dose 1 EA; Start 11/16/16 at 02:00 Miscellaneous Information 1 ea NOTE XX ; Start 11/15/16 at 12:00 Glucose (Glutose) 15 gm Q15M PRN PO DECREASED GLUCOSE; Start 11/15/16 at 12:00 Glucose (Glutose) 22.5 gm Q15M PRN PO DECREASED GLUCOSE; Start 11/15/16 at 12: 00 Dextrose (D50w Syringe) 25 ml Q15M PRN IV DECREASED GLUCOSE Last administered on 11/19/16 02:10; Admin Dose 25 ML; Start 11/15/16 at 12:00 Dextrose (D50w Syringe) 50 ml Q15M PRN IV DECREASED GLUCOSE; Start 11/15/16 at 12:00 Glucagon (Glucagen) 1 mg Q15M PRN IM DECREASED GLUCOSE; Start 11/15/16 at 12:00 Glucose (Glutose) 15 gm Q15M PRN BUCCAL DECREASED GLUCOSE; Start 11/15/16 at 12 :00 Insulin Glargine (Lantus) 13 unit HS SC Last administered on 11/19/16 21:14; Admin Dose 13 UNIT; Start 11/16/16 at 21:00 Hydralazine HCl (Apresoline) 10 mg Q4H PRN IV sbp>160 Last administered on 11/19 21:10; Admin Dose 10 MG; Start 11/16/16 at 11:00 Famotidine 20 mg 20 mg BID IV Last administered on 11/20/16 09:13; Admin Dose 20 MG; Start 11/17/16 at 21:00 Potassium Chloride/Dextrose/ Sod Cl (D5-1/2ns + KCl 20 Meq) 1,000 ml @ 100 mls/ hr Q10H IV Last administered on 11/20/16 09:13; Admin Dose 100 MLS/HR; Start 11/19/16 at 12:30 Hydralazine HCl 10 mg 10 mg Q8 IV Last administered on 11/20/16 05:35; Admin Dose 10 MG; Start 11/19/16 at 23:00 Potassium Chloride/Sodium Chloride (KCl/NS) 110 ml @ 55 mls/hr ONCE ONCE IVPB ; Start 11/20/16 at 12:00; Stop 11/20/16 at 13:59 PEGGY DOBSON Nov 20, 2016 12:14
[2016-11-20 12:22] LABS: BILIRUBIN,INDIRECT 1.8 mg/dl (0-1.1); BILIRUBIN,TOTAL 1.8 mg/dl (0.2-1.3)
[2016-11-20 20:26] VITALS: BP 152/71; RESP 20
[2016-11-20] MEDS: INSULIN GLARGINE [LANtus] 3 ML PEN SC SCH (20:40)
--- NOTE | 2016-11-20 21:47 | RADRPT ---
PROCEDURE: MRCP. CLINICAL INDICATION: Elevated liver function tests. TECHNIQUE: MRCP was performed. The following sequences were obtained: Three plane gradient echo localizers, coronal gradient echo images, breath hold axial T2-weighted fat saturation images, micah nal T2-weighted images, axial 3-D LAVA images, axial T2-weighted breath hold fast spin echo images, and 3-D coronal rotating MIP images of the biliary tree. COMPARISON: CT scan of the abdomen and pelvis dated 11/15/2016 which demonstrated mild acute pancr eatitis and fatty liver. FINDINGS: The liver is normal in size. There is normal signal intensity within the liver. There is no focal hepatic lesion. The spleen is normal in size and homogeneous in signal intensity. There are no gallstones in the gallbladder. The biliary tree is not dilated. No intrahepatic nor extrahepatic biliary dilatation is present. The pancreatic duct is grossly normal. The kidneys are grossly normal. The abdominal aorta is not dilated. IMPRESSION: 1. Unremarkable MRCP. 2. No gallstones and the common bile duct. RPTAT: QQ .Rk Delatorre MD, Date Time Electronically viewed and signed by .Rk Delatorre MD, on 11/20/2016 21:46 .R/
[2016-11-21 05:32] LABS: POTASSIUM 3.8 mmol/L (3.5-5.1)
[2016-11-21 05:34] LABS: CREATININE 0.6 mg/dl (0.61-1.24)
[2016-11-21 05:35] LABS: CALCIUM 8.9 mg/dl (8.4-10.2)
[2016-11-21 05:41] LABS: BASOPHILS % 0.7 % (0.0-2.0); EOSINOPHILS # 0.1 10^3/ul (0.0-0.5); EOSINOPHILS % 1.2 % (0.0-7.0); HEMATOCRIT 44.2 % (42.0-52.0); LYMPHOCYTES # 2.2 10^3/ul (0.8-2.9); LYMPHOCYTES % 28.4 % (15.0-51.0); MEAN CORPUSCULAR HEMOGLOBIN 30.6 pg (29.0-33.0); MEAN CORPUSCULAR HGB CONC 33.9 g/dl (32.0-37.0); MEAN CORPUSCULAR VOLUME 90.2 fl (82.0-101.0); MEAN PLATELET VOLUME 9.8 fl (7.4-10.4); MONOCYTE # 0.7 10^3/ul (0.3-0.9); MONOCYTES % 8.7 % (0.0-11.0); NEUTROPHIL # 4.6 10^3/ul (1.6-7.5); PLATELET COUNT 242 10^3/UL (140-440); RED CELL DISTRIBUTION WIDTH 13.3 % (11.5-14.5); UNCORRECTED WBC 7.6 10^3/ul (4.8-10.8); WHITE BLOOD COUNT 7.6 10^3/ul (4.8-10.8)
[2016-11-21 05:53] LABS: CONDITION 1
[2016-11-21] MEDS: hydrALAzine 20 MG INJ IV SCH ×3 (06:00→21:30)
[2016-11-21] MEDS: D5W-0.45 NACL + KCL 20 MEQ 1,000 ML IV SCH ×2 (06:22→17:24)
[2016-11-21 07:55] VITALS: BP 130/76; RESP 18
[2016-11-21] MEDS: FAMOTIDINE 20 MG INJ IV SCH ×2 (08:56→20:22)
[2016-11-21] MEDS: INSULIN ASPART [NOVOLOG] 3 ML PEN SC SCH ×4 (08:57→20:30)
[2016-11-21] MEDS: ENOXAPARIN 40 MG/0.4 ML SYG SC SCH (08:57)
--- NOTE | 2016-11-21 10:27 | PN ---
Date/Time of Note Date/Time of Note DATE: 11/21/16 TIME: 10:23 Assessment/Plan VTE Prophylaxis VTE Prophylaxis Intervention: SCD's Lines/Catheters IV C[facility]ter Type (from [facility] Peripheral IV Urinary Cath still in place: No Assessment/Plan Chief Complaint/Hosp Course Assessment and plan 1. Acute pancreatitis. Patient did admit to drinking 3 40 ounces of beer a day. Patient advised about alcohol cessation. Continue on IV fluids for now. Lipase level worsening. MRCP negative for any choledocholithiasis. Follow up GI recommendations 2. Suspect new onset diabetes. Patient noted with A1c of 11.4. mechanic and welder following. Continue on insulin regimen for now. 3. History of hypertension. Continue antihypertensives and adjust as needed 4. Alcohol abuse. Patient educated about cessation. 5. Hypokalemia. Will monitor and replete as needed Disposition and plan: No abd pain reported. Lipase level continues to rise. Await GI recs. d/c when medically stable and cleared by consultants Discussed plan of care with Dr. King Problems: Subjective 24 Hr Interval Summary Free Text/Dictation resting at this time. denies any abdominal pain. Family at bedside Exam/Review of Systems Vital Signs Vitals Vital Signs Date Time Temp Pulse Resp B/P Pulse Ox O2 Delivery O2 Flow Rate FiO2 11/21/16 07:55 98.3 81 18 130/76 98 Intake and Output 11/20/16 11/20/16 11/21/16 15:00 23:00 07:00 Intake Total 110 ml 1000 ml 750 ml Output Total 800 ml Balance 110 ml 200 ml 750 ml Exam General: No acute signs or symptoms of distress Eyes: pupils equal round, Anicteric sclera Neck: Supple nontender, no JVD Cardiac: S1, S2 auscultated, regular rhythm and rate Pulmonary: No coarse rhonchi or breathing auscultated GI: Abdomen soft nontender nondistended, bowel sounds active Extremities: No edema bilateral lower extremities Skin: Clean dry and intact Neurologic: Alert to person place and time and situation Results Result Diagram: 11/21/16 0445 11/21/16 0445 Results 24 hrs Laboratory Tests Test 11/20/16 11:26 11/20/16 17:57 11/20/16 20:15 11/21/16 04:45 Bedside Glucose 161 153 173 Anion Gap 18 H Basophils # 0.0 Basophils % 0.7 Blood Urea Nitrogen 4 L Calcium Level 8.9 Carbon Dioxide Level 24 Chloride Level 102 Creatinine 0.60 L Eosinophils # 0.1 Eosinophils % 1.2 Glucose Level 212 Hematocrit 44.2 Hemoglobin 15.0 Lipase 5182 H Lymphocytes # 2.2 Lymphocytes % 28.4 Mean Corpuscular Hemoglobin 30.6 Mean Corpuscular Hemoglobin Concent 33.9 Mean Corpuscular Volume 90.2 Mean Platelet Volume 9.8 Monocytes # 0.7 Monocytes % 8.7 Neutrophils # 4.6 Neutrophils % 61.0 Nucleated Red Blood Cells # 0.0 Nucleated Red Blood Cells % 0.0 Platelet Count 242 Potassium Level 3.8 Red Blood Count 4.90 Red Cell Distribution Width 13.3 Sodium Level 140 White Blood Count 7.6 Test 11/21/16 07:54 Bedside Glucose 209 Medications Medications Current Medications Ondansetron HCl (Zofran Inj) 4 mg Q6H PRN IV NAUSEA AND/OR VOMITING; Start at 08:30 Acetaminophen (Tylenol Supp) 650 mg Q6H PRN [place] PAIN LEVEL 1-3 OR FEVER Last administered on 11/15/16 21:26; Admin Dose 650 MG; Start 11/15/16 at 08:30 Morphine Sulfate (morphine) 4 mg Q4H PRN IV PAIN Last administered on 20:39; Admin Dose 4 MG; Start 11/15/16 at 08:30 Enoxaparin Sodium (Lovenox) 40 mg DAILY SC Last administered on 11/21/16 08:57 ; Admin Dose 40 MG; Start 11/15/16 at 11:30 Diagnostic Test (Pha) (Accucheck) 1 ea 02 XX Last administered on 11/16/16 02: 00; Admin Dose 1 EA; Start 11/16/16 at 02:00 Miscellaneous Information 1 ea NOTE XX ; Start 11/15/16 at 12:00 Glucose (Glutose) 15 gm Q15M PRN PO DECREASED GLUCOSE; Start 11/15/16 at 12:00 Glucose (Glutose) 22.5 gm Q15M PRN PO DECREASED GLUCOSE; Start 11/15/16 at 12: 00 Dextrose (D50w Syringe) 25 ml Q15M PRN IV DECREASED GLUCOSE Last administered on 11/19/16 02:10; Admin Dose 25 ML; Start 11/15/16 at 12:00 Dextrose (D50w Syringe) 50 ml Q15M PRN IV DECREASED GLUCOSE; Start 11/15/16 at 12:00 Glucagon (Glucagen) 1 mg Q15M PRN IM DECREASED GLUCOSE; Start 11/15/16 at 12:00 Glucose (Glutose) 15 gm Q15M PRN BUCCAL DECREASED GLUCOSE; Start 11/15/16 at 12 :00 Insulin Glargine (Lantus) 13 unit HS SC Last administered on 11/20/16 20:40; Admin Dose 13 UNIT; Start 11/16/16 at 21:00 Hydralazine HCl (Apresoline) 10 mg Q4H PRN IV sbp>160 Last administered on 11/19 21:10; Admin Dose 10 MG; Start 11/16/16 at 11:00 Famotidine 20 mg 20 mg BID IV Last administered on 11/21/16 08:56; Admin Dose 20 MG; Start 11/17/16 at 21:00 Potassium Chloride/Dextrose/ Sod Cl (D5-1/2ns + KCl 20 Meq) 1,000 ml @ 100 mls/ hr Q10H IV Last administered on 11/21/16 06:22; Admin Dose 100 MLS/HR; Start 11/19/16 at 12:30 Hydralazine HCl (Apresoline) 10 mg Q8 IV Last administered on 11/20/16 21:27; Admin Dose 10 MG; Start 11/19/16 at 23:00 PEGGY DOBSON Nov 21, 2016 10:27
[2016-11-21 20:02] VITALS: BP 162/84; RESP 19
[2016-11-21] MEDS: INSULIN GLARGINE [LANtus] 3 ML PEN SC SCH (20:29)
[2016-11-21 21:25] VITALS: BP 154/81; PULSE 84; RESP 18
[2016-11-22] MEDS: ACCUCHECK XX SCH (01:27)
[2016-11-22] MEDS: D5W-0.45 NACL + KCL 20 MEQ 1,000 ML IV SCH ×3 (01:39→23:31)
[2016-11-22] MEDS: hydrALAzine 20 MG INJ IV SCH ×3 (05:51→22:28)
[2016-11-22 07:55] VITALS: BP 146/81; RESP 16
[2016-11-22] MEDS: FAMOTIDINE 20 MG INJ IV SCH ×2 (09:03→20:37)
[2016-11-22] MEDS: INSULIN ASPART [NOVOLOG] 3 ML PEN SC SCH ×4 (09:04→20:38)
[2016-11-22] MEDS: ENOXAPARIN 40 MG/0.4 ML SYG SC SCH (09:04)
--- NOTE | 2016-11-22 13:04 | PN ---
Date/Time of Note Date/Time of Note DATE: 11/22/16 TIME: 13:03 Assessment/Plan VTE Prophylaxis VTE Prophylaxis Intervention: SCD's Lines/Catheters IV Catheter Type (from Rust): Peripheral IV Urinary Cath still in place: No Assessment/Plan Chief Complaint/Hosp Course Assessment and plan 1. Acute pancreatitis. Patient did admit to drinking 3 40 ounces of beer a day. Patient advised about alcohol cessation. Continue on IV fluids for now. Lipase level worsening. MRCP negative for any choledocholithiasis. Follow up GI recommendations 2. Suspect new onset diabetes. Patient noted with A1c of 11.4. elementary educator following. Continue on insulin regimen for now. 3. History of hypertension. Continue antihypertensives and adjust as needed 4. Alcohol abuse. Patient educated about cessation. 5. Hypokalemia. Will monitor and replete as needed Disposition and plan: Patient denies any abdominal pain. Lipase and amylase levels continue to be elevated. Discussed with supervisor shrimp pond, we'll trial patient on clear liquid diet due to patient's asymptomatic presentation. We'll monitor lipase and amylase level. If able to tolerate diet we'll consider possible discharge the patient to be followed up as outpatient for further monitoring of pancreas. We'll consider further abdominal radiograph if patient' s condition deteriorates Discussed plan of care with Dr. King Problems: Subjective 24 Hr Interval Summary Free Text/Dictation Denies any abdominal pain at this time. Exam/Review of Systems Vital Signs Vitals Vital Signs Date Time Temp Pulse Resp B/P Pulse Ox O2 Delivery O2 Flow Rate FiO2 11/22/16 07:55 98.5 74 16 146/81 97 11/21/16 21:25 Room Air Exam General: No acute signs or symptoms of distress Eyes: pupils equal round, Anicteric sclera Neck: Supple nontender, no JVD Cardiac: S1, S2 auscultated, regular rhythm and rate Pulmonary: No coarse rhonchi or breathing auscultated GI: Abdomen soft nontender nondistended, bowel sounds active Extremities: No edema bilateral lower extremities Skin: Clean dry and intact Neurologic: Alert to person place and time and situation Results Result Diagram: 11/21/16 0445 11/21/16 0445 Results 24 hrs Laboratory Tests Test 11/21/16 17:24 11/21/16 20:20 11/22/16 04:50 11/22/16 09:01 Bedside Glucose 165 173 154 Amylase Level 248 H Lipase 4257 H Medications Medications Current Medications Ondansetron HCl (Zofran Inj) 4 mg Q6H PRN IV NAUSEA AND/OR VOMITING; Start at 08:30 Acetaminophen (Tylenol Supp) 650 mg Q6H PRN [place] PAIN LEVEL 1-3 OR FEVER Last administered on 11/15/16 21:26; Admin Dose 650 MG; Start 11/15/16 at 08:30 Morphine Sulfate (morphine) 4 mg Q4H PRN IV PAIN Last administered on 20:39; Admin Dose 4 MG; Start 11/15/16 at 08:30 Enoxaparin Sodium (Lovenox) 40 mg DAILY SC Last administered on 11/22/16 09:04 ; Admin Dose 40 MG; Start 11/15/16 at 11:30 Diagnostic Test (Pha) (Accucheck) 1 ea 02 XX Last administered on 11/16/16 02: 00; Admin Dose 1 EA; Start 11/16/16 at 02:00 Miscellaneous Information 1 ea NOTE XX ; Start 11/15/16 at 12:00 Glucose (Glutose) 15 gm Q15M PRN PO DECREASED GLUCOSE; Start 11/15/16 at 12:00 Glucose (Glutose) 22.5 gm Q15M PRN PO DECREASED GLUCOSE; Start 11/15/16 at 12: 00 Dextrose (D50w Syringe) 25 ml Q15M PRN IV DECREASED GLUCOSE Last administered on 11/19/16 02:10; Admin Dose 25 ML; Start 11/15/16 at 12:00 Dextrose (D50w Syringe) 50 ml Q15M PRN IV DECREASED GLUCOSE; Start 11/15/16 at 12:00 Glucagon (Glucagen) 1 mg Q15M PRN IM DECREASED GLUCOSE; Start 11/15/16 at 12:00 Glucose (Glutose) 15 gm Q15M PRN BUCCAL DECREASED GLUCOSE; Start 11/15/16 at 12 :00 Insulin Glargine (Lantus) 13 unit HS SC Last administered on 11/21/16 20:29; Admin Dose 13 UNIT; Start 11/16/16 at 21:00 Hydralazine HCl (Apresoline) 10 mg Q4H PRN IV sbp>160 Last administered on 11/19 21:10; Admin Dose 10 MG; Start 11/16/16 at 11:00 Famotidine 20 mg 20 mg BID IV Last administered on 11/22/16 09:03; Admin Dose 20 MG; Start 11/17/16 at 21:00 Potassium Chloride/Dextrose/ Sod Cl (D5-1/2ns + KCl 20 Meq) 1,000 ml @ 100 mls/ hr Q10H IV Last administered on 11/22/16 10:47; Admin Dose 100 MLS/HR; Start 11/19/16 at 12:30 Hydralazine HCl (Apresoline) 10 mg Q8 IV Last administered on 11/20/16 21:27; Admin Dose 10 MG; Start 11/19/16 at 23:00 PEGGY DOBSON Nov 22, 2016 13:04
[2016-11-22 14:31] VITALS: BP 173/90; PULSE 71; RESP 18
--- NOTE | 2016-11-22 17:42 | CONS ---
Date/Time of Note Date/Time of Note DATE: 11/22/16 TIME: 17:40 Assessment/Plan Assessment/Plan Additional Assessment/Plan Pancreatitis * MRCP: negative for biliary obstruction * Review labs * IVF hydration * Full liquids, and advance to regular diet Alcohol abuse * Encourage abstinence Hypertension Diabetes? Further recommendations depend on clinical course Patient seen in collaboration with Dr. Macias Consultation Date/Type/Reason Admit Date/Time Nov 15, 2016 at 05:25 Initial Consult Date Type of Consultation: Gastroenterology 24 HR Interval Summary Free Text/Dictation Denies abdominal pain Lipase slowly trending downward Elevated lipase likely secondary to years of alcohol abuse Exam/Review of Systems Vital Signs Vitals Vital Signs Date Time Temp Pulse Resp B/P Pulse Ox O2 Delivery O2 Flow Rate FiO2 11/22/16 14:31 71 18 173/90 98 Room Air 11/22/16 07:55 98.5 Exam Constitutional: alert, obese, oriented, well developed Psych: nl mood/affect Head: normocephalic Eyes: EOMI, nl conjunctiva, nl lids, nl sclera ENMT: nl external ears & nose, nl lips & teeth, nl nasal mucosa & septum Respiratory: normal air movement Cardiovascular: regular rate and rhythm Gastrointestinal: non-tender, soft 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 Results Result Diagram: 11/21/165 11/21/16 0445 Results 24 hrs Laboratory Tests Test 11/21/16 20:20 11/22/16 04:50 11/22/16 09:01 11/22/16 13:01 Bedside Glucose 173 154 173 Amylase Level 248 H Lipase 4257 H Medications Medications Current Medications Ondansetron HCl (Zofran Inj) 4 mg Q6H PRN IV NAUSEA AND/OR VOMITING; Start at 08:30 Acetaminophen (Tylenol Supp) 650 mg Q6H PRN [place] PAIN LEVEL 1-3 OR FEVER Last administered on 11/15/16 21:26; Admin Dose 650 MG; Start 11/15/16 at 08:30 Morphine Sulfate (morphine) 4 mg Q4H PRN IV PAIN Last administered on 20:39; Admin Dose 4 MG; Start 11/15/16 at 08:30 Enoxaparin Sodium (Lovenox) 40 mg DAILY SC Last administered on 11/22/16 09:04 ; Admin Dose 40 MG; Start 11/15/16 at 11:30 Diagnostic Test (Pha) (Accucheck) 1 ea 02 XX Last administered on 11/16/16 02: 00; Admin Dose 1 EA; Start 11/16/16 at 02:00 Miscellaneous Information 1 ea NOTE XX ; Start 11/15/16 at 12:00 Glucose (Glutose) 15 gm Q15M PRN PO DECREASED GLUCOSE; Start 11/15/16 at 12:00 Glucose (Glutose) 22.5 gm Q15M PRN PO DECREASED GLUCOSE; Start 11/15/16 at 12: 00 Dextrose (D50w Syringe) 25 ml Q15M PRN IV DECREASED GLUCOSE Last administered on 11/19/16 02:10; Admin Dose 25 ML; Start 11/15/16 at 12:00 Dextrose (D50w Syringe) 50 ml Q15M PRN IV DECREASED GLUCOSE; Start 11/15/16 at 12:00 Glucagon (Glucagen) 1 mg Q15M PRN IM DECREASED GLUCOSE; Start 11/15/16 at 12:00 Glucose (Glutose) 15 gm Q15M PRN BUCCAL DECREASED GLUCOSE; Start 11/15/16 at 12 :00 Insulin Glargine (Lantus) 13 unit HS SC Last administered on 11/21/16 20:29; Admin Dose 13 UNIT; Start 11/16/16 at 21:00 Hydralazine HCl (Apresoline) 10 mg Q4H PRN IV sbp>160 Last administered on 11/19 21:10; Admin Dose 10 MG; Start 11/16/16 at 11:00 Famotidine 20 mg 20 mg BID IV Last administered on 11/22/16 09:03; Admin Dose 20 MG; Start 11/17/16 at 21:00 Potassium Chloride/Dextrose/ Sod Cl (D5-1/2ns + KCl 20 Meq) 1,000 ml @ 100 mls/ hr Q10H IV Last administered on 11/22/16 10:47; Admin Dose 100 MLS/HR; Start 11/19/16 at 12:30 Hydralazine HCl (Apresoline) 10 mg Q8 IV Last administered on 11/22/16 14:33; Admin Dose 10 MG; Start 11/19/16 at 23:00 WILLAM GARCIA Nov 22, 2016 17:42
[2016-11-22 20:01] VITALS: BP 139/72; RESP 17
[2016-11-22] MEDS: INSULIN GLARGINE [LANtus] 3 ML PEN SC SCH (20:39)
[2016-11-23] MEDS: ACCUCHECK XX SCH (02:00)
[2016-11-23 05:13] LABS: BASOPHILS % 0.7 % (0.0-2.0); EOSINOPHILS # 0.2 10^3/ul (0.0-0.5); EOSINOPHILS % 2.5 % (0.0-7.0); HEMATOCRIT 42.3 % (42.0-52.0); HEMOGLOBIN 14.2 g/dl (14.0-18.0); LYMPHOCYTES # 2.1 10^3/ul (0.8-2.9); LYMPHOCYTES % 32.8 % (15.0-51.0); MEAN CORPUSCULAR HEMOGLOBIN 30.1 pg (29.0-33.0); MEAN CORPUSCULAR HGB CONC 33.5 g/dl (32.0-37.0); MEAN CORPUSCULAR VOLUME 89.9 fl (82.0-101.0); MEAN PLATELET VOLUME 9.4 fl (7.4-10.4); MONOCYTE # 0.6 10^3/ul (0.3-0.9); MONOCYTES % 9.2 % (0.0-11.0); NEUTROPHIL # 3.5 10^3/ul (1.6-7.5); NEUTROPHILS % 54.8 % (39.0-77.0); PLATELET COUNT 226 10^3/UL (140-440); RED CELL DISTRIBUTION WIDTH 12.8 % (11.5-14.5); UNCORRECTED WBC 6.3 10^3/ul (4.8-10.8); WHITE BLOOD COUNT 6.3 10^3/ul (4.8-10.8)
[2016-11-23 05:16] LABS: CONDITION 1
[2016-11-23 05:18] LABS: POTASSIUM 3.7 mmol/L (3.5-5.1)
[2016-11-23 05:20] LABS: CREATININE 0.57 mg/dl (0.61-1.24)
[2016-11-23 05:21] LABS: CALCIUM 8.8 mg/dl (8.4-10.2)
[2016-11-23] MEDS: hydrALAzine 20 MG INJ IV SCH ×2 (06:00→12:45)
[2016-11-23 08:15] VITALS: BP 145/81; RESP 20
[2016-11-23] MEDS: FAMOTIDINE 20 MG INJ IV SCH (08:17)
[2016-11-23] MEDS: ENOXAPARIN 40 MG/0.4 ML SYG SC SCH (08:19)
[2016-11-23] MEDS: INSULIN ASPART [NOVOLOG] 3 ML PEN SC SCH ×2 (08:20→12:44)
[2016-11-23] MEDS: D5W-0.45 NACL + KCL 20 MEQ 1,000 ML IV SCH (08:21)
[2016-11-23] MEDS ORDERED: METF-382 PO (10:44)
--- NOTE | 2016-11-23 10:49 | PDOCDIS ---
Discharge Instructions DIAGNOSIS Discharge Diagnosis: 1. acute pancreatitis 2. diabetes CONDITION Patient Condition: Stable HOME CARE INSTRUCTIONS: Special Diet: carbohydrate controlled FOLLOW UP/APPOINTMENTS Appointments 1. Follow up with your primary care provider in one week 2. Follow up with Dr. Felicia Macias in one week OTHER ORDERS: Other Orders: 1. Take your medications as prescribed PEGGY DOBSON Nov 23, 2016 10:49
--- NOTE | 2016-11-23 10:54 | CONS ---
Date/Time of Note Date/Time of Note DATE: 11/23/16 TIME: 10:51 Assessment/Plan Assessment/Plan Additional Assessment/Plan Pancreatitis * MRCP: negative for biliary obstruction * CA 19-9 negative * Full liquids, and advance to regular diet Alcohol abuse * Encourage abstinence Hypertension New Diabetes dx Further recommendations depend on clinical course Pt stable from GI standpoint Patient seen in collaboration with Dr. Macias Consultation Date/Type/Reason Admit Date/Time Nov 15, 2016 at 05:25 Type of Consultation: Gastroenterology 24 HR Interval Summary Free Text/Dictation Tolerating diet Denies abdominal pain nausea and vomiting Lipase trending downward Elevation in lipase likely secondary due to chronic alcohol abuse Patient stable from GI standpoint Exam/Review of Systems Vital Signs Vitals Vital Signs Date Time Temp Pulse Resp B/P Pulse Ox O2 Delivery O2 Flow Rate FiO2 11/23/16 08:15 97.8 81 20 145/81 96 11/22/16 14:31 Room Air Intake and Output 11/22/16 11/22/16 11/23/16 15:00 23:00 07:00 Intake Total 300 ml 600 ml 950 ml Balance 300 ml 600 ml 950 ml Exam Constitutional: alert, obese, oriented, well developed Psych: nl mood/affect Head: normocephalic Eyes: EOMI, nl conjunctiva, nl lids, nl sclera ENMT: nl external ears & nose, nl lips & teeth, nl nasal mucosa & septum Respiratory: normal air movement Cardiovascular: regular rate and rhythm Gastrointestinal: non-tender, soft 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 Results Result Diagram: 11/23/16 0445 11/23/16 0445 Results 24 hrs Laboratory Tests Test 11/22/16 13:01 11/22/16 17:30 11/22/16 20:33 11/23/16 02:00 Bedside Glucose 173 183 293 H 138 Test 11/23/16 04:45 11/23/16 08:09 Anion Gap 14 Basophils # 0.0 Basophils % 0.7 Blood Urea Nitrogen 4 L Calcium Level 8.8 Carbon Dioxide Level 28 Chloride Level 105 Creatinine 0.57 L Eosinophils # 0.2 Eosinophils % 2.5 Glucose Level 165 Hematocrit 42.3 Hemoglobin 14.2 Lipase 3347 H Lymphocytes # 2.1 Lymphocytes % 32.8 Mean Corpuscular Hemoglobin 30.1 Mean Corpuscular Hemoglobin Concent 33.5 Mean Corpuscular Volume 89.9 Mean Platelet Volume 9.4 Monocytes # 0.6 Monocytes % 9.2 Neutrophils # 3.5 Neutrophils % 54.8 Nucleated Red Blood Cells # 0.0 Nucleated Red Blood Cells % 0.0 Platelet Count 226 Potassium Level 3.7 Red Blood Count 4.70 Red Cell Distribution Width 12.8 Sodium Level 143 White Blood Count 6.3 Bedside Glucose 174 Medications Medications Current Medications Ondansetron HCl (Zofran Inj) 4 mg Q6H PRN IV NAUSEA AND/OR VOMITING; Start at 08:30 Acetaminophen (Tylenol Supp) 650 mg Q6H PRN [place] PAIN LEVEL 1-3 OR FEVER Last administered on 11/15/16 21:26; Admin Dose 650 MG; Start 11/15/16 at 08:30 Morphine Sulfate (morphine) 4 mg Q4H PRN IV PAIN Last administered on 20:39; Admin Dose 4 MG; Start 11/15/16 at 08:30 Enoxaparin Sodium (Lovenox) 40 mg DAILY SC Last administered on 11/23/16 08:19 ; Admin Dose 40 MG; Start 11/15/16 at 11:30 Diagnostic Test (Pha) (Accucheck) 1 ea 02 XX Last administered on 11/16/16 02: 00; Admin Dose 1 EA; Start 11/16/16 at 02:00 Miscellaneous Information 1 ea NOTE XX ; Start 11/15/16 at 12:00 Glucose (Glutose) 15 gm Q15M PRN PO DECREASED GLUCOSE; Start 11/15/16 at 12:00 Glucose (Glutose) 22.5 gm Q15M PRN PO DECREASED GLUCOSE; Start 11/15/16 at 12: 00 Dextrose (D50w Syringe) 25 ml Q15M PRN IV DECREASED GLUCOSE Last administered on 11/19/16 02:10; Admin Dose 25 ML; Start 11/15/16 at 12:00 Dextrose (D50w Syringe) 50 ml Q15M PRN IV DECREASED GLUCOSE; Start 11/15/16 at 12:00 Glucagon (Glucagen) 1 mg Q15M PRN IM DECREASED GLUCOSE; Start 11/15/16 at 12:00 Glucose (Glutose) 15 gm Q15M PRN BUCCAL DECREASED GLUCOSE; Start 11/15/16 at 12 :00 Insulin Glargine (Lantus) 13 unit HS SC Last administered on 11/22/16 20:39; Admin Dose 13 UNIT; Start 11/16/16 at 21:00 Hydralazine HCl (Apresoline) 10 mg Q4H PRN IV sbp>160 Last administered on 11/19 21:10; Admin Dose 10 MG; Start 11/16/16 at 11:00 Famotidine 20 mg 20 mg BID IV Last administered on 11/23/16 08:17; Admin Dose 20 MG; Start 11/17/16 at 21:00 Potassium Chloride/Dextrose/ Sod Cl (D5-1/2ns + KCl 20 Meq) 1,000 ml @ 100 mls/ hr Q10H IV Last administered on 11/23/16 08:21; Admin Dose 100 MLS/HR; Start 11/19/16 at 12:30 Hydralazine HCl (Apresoline) 10 mg Q8 IV Last administered on 11/23/16 06:00; Admin Dose 10 MG; Start 11/19/16 at 23:00 WILLAM GARCIA Nov 23, 2016 10:54
--- NOTE | 2016-11-23 20:07 | DS ---
DATE OF ADMISSION: 11/15/2016 DATE OF DISCHARGE: 11/23/2016 CONSULTANTS: Dr. Felicia Macias. DISCHARGE DIAGNOSES: 1. Acute pancreatitis, likely secondary to alcoholism. 2. Diabetes with A1c of 11.4. 3. Essential hypertension. 4. History of alcohol abuse. 5. Hypokalemia. HOSPITAL COURSE: This is a 56-year-old male with past medical history of hypertension and suspect d marita who came to [facility] due to reports of abdominal pain. According to the patient, he had been having diffuse abdominal pain for several days prior to admission. He did com e to [facility] and was noted to have a lipase of 6600, also elevated blood glucos e above 200. He did have a CT scan of his abdomen that did show findings compatible with acute panc reatitis. He was placed n.p.o. and provided with aggressive IV hydration. He was also provided wit h analgesics as needed. During the course of his stay, his pain did subside. However, his lipase l evels still remain elevated above 3000. The patient was consulted by bond manager and we did have MRCP done that did show no choledocholithiasis or any kind of obstruction that would likely cau se any kind of pancreatic enzyme level rise. He was continued on IV hydration and n.p.o. during thi s time. After discussion with bond manager and review of diagnostic data, we did go ahead and start the patient on clear liquid diet and he did tolerate well. He did have his diet advanced and , again, he did tolerate this well. The patient lipase levels still remain elevated but did slowly downward trend. The patient was educated to follow up with his bond manager and primary care provider for further workup within a week. The patient was also found with diabetes with A1c of 11. 4. He was seen by acidizer helper and placed on insulin regimen. On his discharge date, he was d ischarged with metformin medication and instructed to take his medications as prescribed. The patie nt was otherwise optimized medically. He was continued on antihypertensives for hypertension. We d id educate him about alcohol cessation and we did replete his electrolytes that were low. The plan of care was discussed with patient and patient did verbalize his understanding. On the day of disch arge, patient was in stable condition. DISCHARGE PHYSICAL EXAM AND VITAL SIGNS: Stable. CONDITION: Stable. DISCHARGE PLAN: 1. Diet is carbohydrate controlled. 2. The patient to follow up with his primary care provider within a week. 3. The patient to follow up with Dr. Felicia Macias within a week. 4. The patient to take his medications as prescribed. DISCHARGE MEDICATIONS: Metformin 500 mg p.o. b.i.d. DISCHARGE PROCESS TIME: 40 minutes. Discussed plan of care with Dr. Mathis. Dictated By: PEGGY DOBSON TRAIN CONTROL TECHNICIAN for JAMEL MATHIS MD RR/NTS Conf#: [id number] DID#: [id number] CC: XAVIER GUSMAN MD;*End*
[2016-11-23] MEDS ORDERED: FAMOTIDINE 20 MG TAB PO SCH (21:00)
== END 2016-11-23 17:15 | disposition home or self-care (01) | DRG 440 ==
LOC: E/R 23:06 → PP2 11-15 05:25
PROVIDERS: ADMIT Internal Medicine; ATTEND Internal Medicine
DX: K85.20 Alcohol induced acute pancreatitis without necrosis or infection (principal); E11.649 Type 2 diabetes mellitus with hypoglycemia without coma; K76.0 Fatty (change of) liver, not elsewhere classified; I10 Essential (primary) hypertension; F10.10 Alcohol abuse, uncomplicated; E87.6 Hypokalemia
CPT/HCPCS: 71010; 74176; 74181; 80048; 80053; 80061; 82150; 82247; 82248; 82306; 82465; 82962; 83036; 83615; 83690; 83735; 84100; 84443; 84478; 85025; 85610; 86301; 90686; J0360; J1650; J1815; J2270; J2405; J3480; J7030; J7042

== ENCOUNTER 2017-05-23 23:03 | Emergency (ER) | payer MEDICAID ==
[~2017-05-23] VITALS: Ht 177.8 cm; Wt 76.0 kg
[~2017-05-23 23:03] MED LIST changes: -ANTIBIOTICS; +METF500T4 PO
[2017-05-23 23:07] VITALS: Ht 177.8 cm; Wt 76.0 kg
[2017-05-23] MEDS ORDERED: MAGN296S40 PO (23:46)
[2017-05-24] MEDS ORDERED: MAGNESIUM CITRATE 300 ML BTL PO ONE
--- NOTE | 2017-05-24 00:10 | ERA ---
ER Documentation Chief Complaint Date/Time DATE: 05/24/17 TIME: 00:08 Chief Complaint constipation x 1 week, denies abd pain HPI 56-year-old male with history of type 2 diabetes mellitus but otherwise healthy presenting with a one-week history of constipation. Denies abdominal pain. Patient denies fever, nausea, diarrhea, constipation, abdominal pain, decreased appetite, recent unintentional weight loss, migrating pain, symptoms associated with food, new or recently changed medications, genital pain or ingestion of new or undercooked food. Patient's no other complaints and denies any other associated manifestations. Nursing notes have been reviewed and are consistent with history given. ROS All systems reviewed and are negative except as per history of present illness. Medications Home Meds Active Scripts Polyethylene Glycol* (Miralax*) 17 Gm Powd.pack, 17 GM PO DAILY, #7 Prov:ABEL MARIE PA-C 05/24/17 Magnesium Citrate* (Magnesium Citrate*) 296 Ml Solution, 296 ML PO ONCE, #1 BOTTLE Prov:ABEL MARIE PA-C 05/23/17 Metformin Hcl* (Metformin Hcl*) 500 Mg Tablet, 500 MG PO WITH BREAKFAST DINNE, # 60 TAB Prov:PEGGY DOBSON 11/23/16 Allergies Allergies: Coded Allergies: Penicillins (Verified Allergy, Severe, RASH, 05/10/11) PMhx/Soc Medical and Surgical Hx: pt denies Surgical Hx History of Surgery: No Anesthesia Reaction: No Hx Neurological Disorder: No Hx Respiratory Disorders: No Hx Cardiac Disorders: Yes (HTN) Hx Psychiatric Problems: No Hx Alcohol Use: No (FORMER DRINKER) Hx Substance Use: No Hx Tobacco Use: No Smoking Status: Never smoker Physical Exam Vitals Vital Signs Date Time Temp Pulse Resp B/P Pulse Ox O2 Delivery O2 Flow Rate FiO2 05/23/17 23:07 98.2 74 20 131/74 99 Physical Exam Const: Well-appearing 56-year-old male lying down on the gurney no acute distress on initial presentation Head: Atraumatic Eyes: Normal Conjunctiva ENT: Normal External Ears, Nose and Mouth. Neck: Full range of motion..~ No meningismus. Resp: Clear to auscultation bilaterally Cardio: Regular rate and rhythm, no murmurs Abd: High-pitched tinkling sounds in the right and left lower quadrants. Soft, non tender, non distended. Normal bowel sounds. No McBurney's point tenderness. Negative Rovsing sign. Negative Tafoya's sign. Skin: No petechiae or rashes Back: No midline or flank tenderness Ext: No cyanosis, or edema Neur: Awake and alert Psych: Normal Mood and Affect Results 24 hrs Current Medications Medications (Trade) Dose Ordered Sig/Yaakov Route PRN Reason Start Time Stop Time Status Last Admin Dose Admin Magnesium Citrate (Citroma) 300 ml ONCE ONCE PO 05/24/17 00:00 05/24/17 00:01 DC 05/23/17 23:37 Procedures/MDM 36-year-old male presenting with a chief complaint of constipation 1 week without abdominal pain. Physical exam was remarkable for high-pitched bowel sounds in the lower left and lower right quadrants. Physical exam findings are most consistent to constipation. Patient will be discharged with magnesium citrate and MiraLAX. I have little suspicion for mechanical obstruction, mesenteric ischemia, appendicitis, acute abdomen or other sources or neurovascular compromise. Reevaluation of the abdomen remained unchanged without tenderness and high-pitched tinkling noises near the lower left and lower right quadrants. I have spoke with the patient regarding their condition and future management. They have verbally responded that they understand their status and treatment plan. The patients vitals are stable, and their current condition is appropriate for discharge. The patient will be given discharge instructions with return precautions. Departure Diagnosis: Primary Impression: Constipation Qualified Code: K59.00 - Constipation, unspecified constipation type Condition: Stable Patient Instructions: Constipation (Adult) Additional Instructions: Follow up with your PCP within the next 1-3 days for a more thorough evaluation and a possible referral to a specialist. Return the the emergency department immediately if symptoms worsen or change. If you have any questions regarding medications, ask your pharmacist or us before you leave. If any adverse reactions occur while taking your medications, discontinue the treatment and return to the emergency department immediately. Take your medications as directed, and complete the entire course of treatment. ABEL MARIE PA-C May 24, 2017 00:10
[2017-05-24] MEDS ORDERED: POLY17PO6 PO (00:48)
== END 2017-05-24 00:52 | disposition home or self-care (01) ==
LOC: FTE 23:03
DX: K59.00 Constipation, unspecified (principal); I10 Essential (primary) hypertension; E11.9 Type 2 diabetes mellitus without complications; Z79.84 Long term (current) use of oral hypoglycemic drugs
CPT/HCPCS: Z7502; Z7610; 99283

== ENCOUNTER 2017-05-26 15:06 | Inpatient (IN) | payer MEDICAID ==
[~2017-05-26] VITALS: Ht 180.3 cm; Wt 71.2 kg
[~2017-05-26 15:06] MED LIST changes: +MAGN296S40 PO; +POLY17PO6 PO
[2017-05-26 15:35] LABS: BASOPHILS % 0.6 % (0.0-2.0); EOSINOPHILS # 0.1 10^3/ul (0.0-0.5); EOSINOPHILS % 0.7 % (0.0-7.0); HEMATOCRIT 37.3 % (42.0-52.0); HEMOGLOBIN 12.9 g/dl (14.0-18.0); LYMPHOCYTES # 1.5 10^3/ul (0.8-2.9); LYMPHOCYTES % 21.4 % (15.0-51.0); MEAN CORPUSCULAR HEMOGLOBIN 28.5 pg (29.0-33.0); MEAN CORPUSCULAR HGB CONC 34.6 g/dl (32.0-37.0); MEAN CORPUSCULAR VOLUME 82.5 fl (82.0-101.0); MEAN PLATELET VOLUME 12.2 fl (7.4-10.4); MONOCYTE # 0.5 10^3/ul (0.3-0.9); MONOCYTES % 7.5 % (0.0-11.0); NEUTROPHIL # 4.8 10^3/ul (1.6-7.5); NEUTROPHILS % 69.2 % (39.0-77.0); PLATELET COUNT 131 10^3/UL (140-415); RED BLOOD COUNT 4.52 10^6/ul (4.70-6.10); RED CELL DISTRIBUTION WIDTH 14.1 % (11.5-14.5)
[2017-05-26 15:51] LABS: INR 0.94; PROTIME 12.6 Sec (12.2-14.2)
[2017-05-26 15:57] LABS: ALANINE AMINOTRANSFERASE 778 IU/L (13-69); ALBUMIN 4.5 g/dl (3.3-4.9); ALBUMIN/GLOBULIN RATIO 1.45; ALKALINE PHOSPHATASE 649 IU/L (42-121); ANION GAP 20 (8-16); ASPARTATE AMINO TRANSFERASE 605 IU/L (15-46); BILIRUBIN,INDIRECT 1.4 mg/dl (0-1.1); BILIRUBIN,TOTAL 7.6 mg/dl (0.2-1.3); BLOOD UREA NITROGEN 10 mg/dl (7-20); CALCIUM 9.4 mg/dl (8.4-10.2); CARBON DIOXIDE 25 mmol/L (21-31); CHLORIDE 100 mmol/L (97-110); CREATININE 0.69 mg/dl (0.61-1.24); GLUCOSE 260 mg/dl (70-220); POTASSIUM 4.3 mmol/L (3.5-5.1); SODIUM 141 mmol/L (135-144); TOTAL PROTEIN 7.6 g/dl (6.1-8.1)
--- NOTE | 2017-05-26 16:01 | RADRPT ---
AMENDMENT: 05/26/2017 4:53:41 PM Guille Hernandez M.D A questionable pancreatic head mass is seen measuring 2.8 cm in size which is worrisome for a pancre atic neoplasm. The common bile duct is dilated measuring 11.1 cm in size. The pancreatic duct also appears to be dilated. Further evaluation with a CT pancreatic protocol is suggested. PROCEDURE: CT abdomen and pelvis without IV contrast. CLINICAL INDICATION: Abdominal pain and jaundice TECHNIQUE: CT scan of the abdomen and pelvis without contrast was performed on the [employer] volumetric [address] scanner. The patient was scanned without intravenous contrast. Coronal and sagittal refo rmatted images were obtained from the axial source images. The CTDI vol is 7.58 mGy and the DLP is 4 55.5 mGy-cm. COMPARISON: None. FINDINGS: CT abdomen: The lung bases are clear. The heart size is not enlarged and is without pericardial thickening or e ffusion. The liver is normal in size and density and is without focal mass or intrahepatic biliary dilatation . The spleen is normal in size and homogeneous in density. The stomach is grossly unremarkable. T he pancreatic body and tail are atrophic. The prior examination. Pancreatic head uncinate process of normal size. No abnormal attenuation of the pancreas is seen. The gallbladder wall is thickened. Suggestion of a tiny layering gallstone may be present. No common bile duct dilatation is seen. The adrenal glands are symmetric and normal. The kidneys are symmetrically unremarkable as well. No r enal calculus or obstructive uropathy or mass lesion is seen. The aorta is of normal in caliber. There is no retroperitoneal lymphadenopathy. The singh hepatis region is clear. The large bowel is stool-filled. The small and large bowel and mesentery, as visual ized, are otherwise unremarkable. The normal appendix is identified. CT pelvis: The pelvic organs are normal. The pelvic sidewalls and inguinal regions are clear. No pelvic mass, lymphadenopathy, or free fluid is seen. No acute inflammation is seen. The urinary bladder is wit hin normal limits. The surrounding osseous structures are unremarkable. No osteolytic or osteoblastic lesion is detect ed. IMPRESSION: 1. Gallbladder wall thickening with possible cholelithiasis. Further evaluation with a right upper quadrant ultrasound is suggested. 2. Stool filled large bowel. RPTAT: HPNM Froylan Hernandez, Physician Date Time Electronically viewed and signed by Froylan Hernandez, Physician on 05/26/2017 16:53 /
[2017-05-26 16:13] LABS: TROPONIN-I < 0.012 ng/ml (0.00-0.12)
[2017-05-26] MEDS ORDERED: METF1000 PO (16:24)
[2017-05-26] MEDS ORDERED: SITA100T8 PO (16:25)
--- NOTE | 2017-05-26 16:52 | RADRPT ---
AMENDMENT: 05/26/2017 5:53:44 PM Guille Hernandez M.D Intrahepatic ductal dilatation is also seen. PROCEDURE: US Abdomen. CLINICAL INDICATION: Abdominal pain. Jaundice TECHNIQUE: Multiple real-time images were acquired of the patient's right upper quadrant utilizing a high resolution transducer. The images were reviewed on a high-resolution PACS workstation. COMPARISON: MRCP from 11/20/[address] of the abdomen pelvis from 05/26/2017 FINDINGS: The liver demonstrates normal echogenicity and size and no focal lesions are seen. The liver measure s 15.1 cm in size. Sludge in the gallbladder lumen is seen. Adenomyomatosis in the gallbladder wall is suggested. There is no pericholecystic fluid. The gallbladder wall measures 2.0 mm in size. No intrahepatic biliary dilatation is seen. The common bile duct measures 11.7 mm in maximal dimension . A hypoechoic mass in the pancreatic head is seen measuring approximately 3.1 x 2.3 cm in size. T he pancreatic duct is dilated. No free fluid is identified. The right kidney is of normal size, and demonstrate normal echogenicity and morphology. The right k idney measures 11.80 cm. There are is no dilatation of the right collecting system. There are no p erinephric fluid collections. There are no areas of increased echogenicity to suggest nephrolithias is. IMPRESSION: 1. Hypoechoic pancreatic head mass worrisome for a pancreatic neoplasm. Further evaluation with a CT pancreatic protocol is recommended. 2. Mild to moderate common bile duct dilatation with dilatation of the pancreatic duct. RPTAT: HPNM Physician Sheila Date Time Electronically viewed and signed by Physician Sheila on 05/26/2017 17:53 /
[2017-05-26] MEDS ORDERED: metroNIDAZOLE 500 MG/NS (PMX) 100 ML IVPB ONE (17:00)
[2017-05-26] MEDS ORDERED: CIPROFLOXACIN 400MG/D5W 200 ML IVPB ONE (17:00)
[2017-05-26] MEDS ORDERED: ONDANSETRON 4 MG INJ IV PRN (17:30)
[2017-05-26] MEDS ORDERED: ACETAMINOPHEN 325 MG TAB PO PRN (17:30)
--- NOTE | 2017-05-26 18:39 | ERA ---
ER Documentation Chief Complaint Date/Time DATE: 05/26/17 TIME: 18:34 Chief Complaint janana x3days with right upper quad pain HPI Patient is a 56-year-old male with pancreatitis, diabetes, and hypertension who presents with yellow skin and abdominal pain. He said that he has had yellow skin and yellow eyes for the past 1 week as well as right upper quadrant abdominal pain. The patient tried ibuprofen for pain. He has not had any Tylenol. Upon review of old medical records this is the patient's sixth visit to the ER since 2007. He does not know the name of his primary doctor. ROS All systems reviewed and are negative except as per history of present illness. Medications Home Meds Reported Medications Sitagliptin* (Januvia*) 100 Mg Tablet, 100 MG PO DAILY, #30 TAB 05/26/17 Metformin Hcl* (Metformin Hcl*) 1,000 Mg Tablet, 1000 MG PO WITH BREAKFAST DINNE , #60 TAB 05/26/17 Discontinued Scripts Polyethylene Glycol* (Miralax*) 17 Gm Powd.pack, 17 GM PO DAILY, #7 Prov:ABEL MARIE PA-C 05/24/17 Magnesium Citrate* (Magnesium Citrate*) 296 Ml Solution, 296 ML PO ONCE, #1 BOTTLE Prov:ABEL AMRIE PA-C 05/23/17 Metformin Hcl* (Metformin Hcl*) 500 Mg Tablet, 500 MG PO WITH BREAKFAST DINNE, # 60 TAB Prov:PEGGY DOBSON 11/23/16 Allergies Allergies: Coded Allergies: Penicillins (Verified Allergy, Severe, RASH, 05/26/17) PMhx/Soc Medical and Surgical Hx: pt denies Medical Hx, pt denies Surgical Hx History of Surgery: No Anesthesia Reaction: No Hx Neurological Disorder: No Hx Respiratory Disorders: No Hx Cardiac Disorders: Yes (HTN) Hx Psychiatric Problems: No 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 Neck: Full range of motion..~ No meningismus. Resp: Clear to auscultation bilaterally Cardio: Regular rate and rhythm, no murmurs Abd: Soft, right upper quadrant abdominal pain without rebound or guarding Skin: Diffuse jaundice and scleral icterus Back: No midline or flank tenderness Ext: No cyanosis, or edema Neur: Awake and alert Psych: Normal Mood and Affect Result Diagram: 05/26/17 1517 05/26/17 1517 Results 24 hrs Laboratory Tests Test 05/26/17 15:17 White Blood Count 7.010^3/ul Red Blood Count 4.5210^6/ul Hemoglobin 12.9g/dl Hematocrit 37.3% Mean Corpuscular Volume 82.5fl Mean Corpuscular Hemoglobin 28.5pg Mean Corpuscular Hemoglobin Concent 34.6g/dl Red Cell Distribution Width 14.1% Platelet Count 80668^3/UL Mean Platelet Volume 12.2fl Neutrophils % 69.2% Lymphocytes % 21.4% Monocytes % 7.5% Eosinophils % 0.7% Basophils % 0.6% Nucleated Red Blood Cells % 0.0/100WBC Neutrophils # 4.810^3/ul Lymphocytes # 1.510^3/ul Monocytes # 0.510^3/ul Eosinophils # 0.110^3/ul Basophils # 0.010^3/ul Nucleated Red Blood Cells # 0.010^3/ul Prothrombin Time 12.6Sec Prothrombin Time Ratio 1.0 INR International Normalized Ratio 0.94 Activated Partial Thromboplast Time 27.0Sec Sodium Level 141mmol/L Potassium Level 4.3mmol/L Chloride Level 100mmol/L Carbon Dioxide Level 25mmol/L Anion Gap 20 Blood Urea Nitrogen 10mg/dl Creatinine 0.69mg/dl Glucose Level 260mg/dl Calcium Level 9.4mg/dl Total Bilirubin 7.6mg/dl Direct Bilirubin 6.20mg/dl Indirect Bilirubin 1.4mg/dl Aspartate Amino Transf (AST/SGOT) 605IU/L Alanine Aminotransferase (ALT/SGPT) 778IU/L Alkaline Phosphatase 649IU/L Troponin I < 0.012ng/ml Total Protein 7.6g/dl Albumin 4.5g/dl Globulin 3.10g/dl Albumin/Globulin Ratio 1.45 Lipase 408U/L Current Medications Medications (Trade) Dose Ordered Sig/Yaakov Route PRN Reason Start Time Stop Time Status Last Admin Dose Admin Ciprofloxacin/ Dextrose 200 ml @ 200 mls/hr ONCE ONCE IVPB 05/26/17 17:00 05/26/17 17:59 DC 05/26/17 17:31 Metronidazole (Flagyl 500 Mg (Pmx)) 100 ml @ 100 mls/hr ONCE ONCE IVPB 05/26/17 17:00 05/26/17 17:59 DC 05/26/17 17:50 Ondansetron HCl (Zofran Inj) 4 mg BRIDGE ORDER PRN IV NAUSEA AND/OR VOMITING 05/26/17 17:30 05/27/17 17:29 Acetaminophen (Tylenol Tab) 650 mg ER BRIDGE PRN PO MILD PAIN/FEVER 05/26/17 17:30 05/27/17 17:29 Procedures/MDM AMENDMENT: 05/26/2017 4:53:41 PM Guille Hernandez M.D A questionable pancreatic head mass is seen measuring 2.8 cm in size which is worrisome for a pancreatic neoplasm. The common bile duct is dilated measuring 11.1 cm in size. The pancreatic duct also appears to be dilated. Further evaluation with a CT pancreatic protocol is suggested. PROCEDURE: CT abdomen and pelvis without IV contrast. CLINICAL INDICATION: Abdominal pain and jaundice TECHNIQUE: CT scan of the abdomen and pelvis without contrast was performed on the [employer] volumetric [address] scanner. The patient was scanned without intravenous contrast. Coronal and sagittal reformatted images were obtained from the axial source images. The CTDI vol is 7.58 mGy and the DLP is 455.5 mGy- cm. COMPARISON: None. FINDINGS: CT abdomen: The lung bases are clear. The heart size is not enlarged and is without pericardial thickening or effusion. The liver is normal in size and density and is without focal mass or intrahepatic biliary dilatation. The spleen is normal in size and homogeneous in density. The stomach is grossly unremarkable. The pancreatic body and tail are atrophic. The prior examination. Pancreatic head uncinate process of normal size. No abnormal attenuation of the pancreas is seen. The gallbladder wall is thickened. Suggestion of a tiny layering gallstone may be present. No common bile duct dilatation is seen. The adrenal glands are symmetric and normal. The kidneys are symmetrically unremarkable as well. No renal calculus or obstructive uropathy or mass lesion is seen. The aorta is of normal in caliber. There is no retroperitoneal lymphadenopathy. The singh hepatis region is clear. The large bowel is stool- filled. The small and large bowel and mesentery, as visualized, are otherwise unremarkable. The normal appendix is identified. CT pelvis: The pelvic organs are normal. The pelvic sidewalls and inguinal regions are clear. No pelvic mass, lymphadenopathy, or free fluid is seen. No acute inflammation is seen. The urinary bladder is within normal limits. The surrounding osseous structures are unremarkable. No osteolytic or osteoblastic lesion is detected. IMPRESSION: 1. Gallbladder wall thickening with possible cholelithiasis. Further evaluation with a right upper quadrant ultrasound is suggested. 2. Stool filled large bowel. RPTAT: HPNM Physician Sheila Date Time Electronically viewed and signed by Physician Sheila on 05/26/2017 16 :53 AMENDMENT: 05/26/2017 5:53:44 PM Guille Hernandez M.D Intrahepatic ductal dilatation is also seen. PROCEDURE: US Abdomen. CLINICAL INDICATION: Abdominal pain. Jaundice TECHNIQUE: Multiple real-time images were acquired of the patient's right upper quadrant utilizing a high resolution transducer. The images were reviewed on a high-resolution PACS workstation. COMPARISON: MRCP from 11/20/[address] of the abdomen pelvis from 05/26/2017 FINDINGS: The liver demonstrates normal echogenicity and size and no focal lesions are seen. The liver measures 15.1 cm in size. Sludge in the gallbladder lumen is seen. Adenomyomatosis in the gallbladder wall is suggested. There is no pericholecystic fluid. The gallbladder wall measures 2.0 mm in size. No intrahepatic biliary dilatation is seen. The common bile duct measures 11.7 mm in maximal dimension. A hypoechoic mass in the pancreatic head is seen measuring approximately 3.1 x 2.3 cm in size. The pancreatic duct is dilated. No free fluid is identified. The right kidney is of normal size, and demonstrate normal echogenicity and morphology. The right kidney measures 11.80 cm. There are is no dilatation of the right collecting system. There are no perinephric fluid collections. There are no areas of increased echogenicity to suggest nephrolithiasis. IMPRESSION: 1. Hypoechoic pancreatic head mass worrisome for a pancreatic neoplasm. Further evaluation with a CT pancreatic protocol is recommended. 2. Mild to moderate common bile duct dilatation with dilatation of the pancreatic duct. RPTAT: HPNM Physician Sheila Date Time Electronically viewed and signed by Froylan Hernandez Physician on 05/26/2017 17 :53 Patient is a 56-year-old male who presents with jaundice and right upper quadrant abdominal pain. Unfortunately his CT scan and ultrasound point to a pancreatic mass. There was also possibility of gallstones or gallbladder wall thickening so the patient was given Unasyn IV. The patient will be admitted to the care of Dr. Alanis from the panel team to a medical surgical bed. Given Dr. Martinez's expertise with pancreatic cancer he was consulted to see the patient and will see the patient in consultation as well. He did recommend an MRCP to further define the process. The patient's bilirubin is significantly elevated as well as the AST and ALT. Critical Care: Time: 35 minutes excluding all billable procedures. Treatments/Evaluations: Close monitoring and treatment of unstable vital signs, cardiorespiratory, and neurologic status, while maintaining tight balance of fluid, respiratory, and cardiac interventions. Departure Diagnosis: Primary Impression: Jaundice Additional Impressions: Pancreatic mass Abdominal pain Qualified Code: R10.84 - Generalized abdominal pain Anemia Qualified Code: D64.9 - Anemia, unspecified type Condition: TOBIN Zepeda MD May 26, 2017 18:39
[2017-05-26] MEDS ORDERED: DEXTROSE 50% 50 ML SYRINGE IV PRN ×2 (19:00)
[2017-05-26] MEDS ORDERED: GLUCOSE GEL 15 GRAM TUBE BUCCAL PRN (19:00)
[2017-05-26] MEDS ORDERED: GLUCAGON 1 MG INJ IM PRN (19:00)
[2017-05-26] MEDS ORDERED: GLUCOSE GEL 15 GRAM TUBE PO PRN ×2 (19:00)
--- NOTE | 2017-05-26 19:51 | HP ---
Date/Time of Note Date/Time of Note DATE: 05/26/17 TIME: 19:46 Assessment/Plan VTE Prophylaxis VTE Prophylaxis Intervention: LMWH Assessment/Plan Chief Complaint/Hosp Course 56 yo male wtih h/o DMII, etoh induced pancreatitis presenting with jaundice and RUQ pain Ddx concerning for malignant biliary obstruction. Choledocholithiasis also possible. Does not seem related to etoh use as he has been sober - MRCP pending for tomorrow, then likely ERCP for stent vs biopsy etc DMII: - basal/bolus insulin Problems: HPI/ROS Admit Date/Time Admit Date/Time Hx of Present Illness 56 yo male wtih h/o DMII, previous etoh induced pancreatitis presenting with RUQ pain and jaundice Describes pain in RUQ for past week with gradual yellowing of his skin. Pain is constant, dull aching. Does not feel like previous pancreatitis pain. Denies any etoh intake in past 5 months, family at bedside confirm. Denies recent weight loss. No change to bowel habits, chronic conspitation. No fevers. Tolerating PO normally. No tylenol use etc. PMH/Family/Social Past Medical History Medical History: pancreatitis Past Surgical History Past Surgical Hx: no surgical history Social History Smoking Status: Never smoker Exam/Review of Systems Vital Signs Vitals Vital Signs Date Time Temp Pulse Resp B/P Pulse Ox O2 Delivery O2 Flow Rate FiO2 05/26/17 18:30 98.8 78 20 153/92 98 Exam Exam Appears comfortable, no distress, pleasant Mildly jaundiced RRR no m/r/g CTAB Some pain to palpation in RUQ, mild. No reboudn no guarding. Mild hepatomegaly no edema CT shows possible mass at head of pancreas US with gall stones Labs show hyperbilirubinemia, lipase elevated, transamintiis Labs Result Diagram: 05/26/17 1517 05/26/17 1517 Medications Medications Current Medications Diagnostic Test (Pha) (Accu-Chek) 1 ea 02 XX ; Start 05/27/17 at 02:00 Insulin Glargine (Lantus) 11 unit DAILY@08 SC ; Start 05/27/17 at 08:00; Status UNV Miscellaneous Information 1 ea NOTE XX ; Start 05/26/17 at 19:00 Glucose (Glutose) 15 gm Q15M PRN PO DECREASED GLUCOSE; Start 05/26/17 at 19:00 Glucose (Glutose) 22.5 gm Q15M PRN PO DECREASED GLUCOSE; Start 05/26/17 at 19: 00 Dextrose (D50w Syringe) 25 ml Q15M PRN IV DECREASED GLUCOSE; Start 05/26/17 at 19:00 Dextrose (D50w Syringe) 50 ml Q15M PRN IV DECREASED GLUCOSE; Start 05/26/17 at 19:00 Glucagon (Glucagen) 1 mg Q15M PRN IM DECREASED GLUCOSE; Start 05/26/17 at 19:00 Glucose (Glutose) 15 gm Q15M PRN BUCCAL DECREASED GLUCOSE; Start 05/26/17 at 19 :00 SOBIA GALE MD May 26, 2017 19:51
[2017-05-26 20:03] VITALS: TEMP 98.8
[2017-05-26 20:30] VITALS: BP 182/84; PULSE 63; RESP 20
[2017-05-26 20:48] VITALS: BP 165/92; RESP 20
[2017-05-26 21:13] VITALS: Ht 180.3 cm; Wt 71.2 kg
[2017-05-26] MEDS: morphine 2 MG INJ IV PRN (21:55)
[2017-05-26] MEDS: INSULIN ASPART [NOVOLOG] 3 ML PEN SC SCH (22:00)
[2017-05-26] MEDS ORDERED: hydrALAzine 20 MG INJ IV PRN (22:00)
[2017-05-27] VITALS (9 sets, daily range): BP systolic 142–177; BP diastolic 75–94; PULSE 67–82; RESP 17–20
[2017-05-27] MEDS ORDERED: NACL 0.9% 3 ML SYG IV SCH (02:00)
[2017-05-27] MEDS ORDERED: ONDANSETRON 4 MG INJ IV PRN (02:00)
[2017-05-27] MEDS: ACCU-CHEK XX SCH (02:29)
[2017-05-27] MEDS: SOD CHLORIDE 0.9% 1,000 ML IV SCH ×2 (02:39→14:13)
[2017-05-27] MEDS: morphine 2 MG INJ IV PRN ×4 (02:41→20:03)
[2017-05-27] MEDS: INSULIN ASPART [NOVOLOG] 3 ML PEN SC SCH ×4 (08:19→21:56)
[2017-05-27] MEDS: INSULIN GLARGINE [LANtus] 3 ML PEN SC SCH (08:19)
[2017-05-27 10:37] LABS: HAAIG REFLEX REFLEX FILED
[2017-05-27 10:54] LABS: BASOPHILS % 0.2 % (0.0-2.0); EOSINOPHILS # 0.1 10^3/ul (0.0-0.5); EOSINOPHILS % 1.3 % (0.0-7.0); HEMATOCRIT 36.2 % (42.0-52.0); HEMOGLOBIN 13.2 g/dl (14.0-18.0); LYMPHOCYTES # 1.3 10^3/ul (0.8-2.9); LYMPHOCYTES % 20.5 % (15.0-51.0); MEAN CORPUSCULAR HEMOGLOBIN 29.5 pg (29.0-33.0); MEAN CORPUSCULAR HGB CONC 36.5 g/dl (32.0-37.0); MEAN CORPUSCULAR VOLUME 80.8 fl (82.0-101.0); MEAN PLATELET VOLUME 12.3 fl (7.4-10.4); MONOCYTE # 0.6 10^3/ul (0.3-0.9); NEUTROPHIL # 4.2 10^3/ul (1.6-7.5); NEUTROPHILS % 67.7 % (39.0-77.0); PLATELET COUNT 117 10^3/UL (140-415); RED BLOOD COUNT 4.48 10^6/ul (4.70-6.10); RED CELL DISTRIBUTION WIDTH 14.6 % (11.5-14.5); WHITE BLOOD COUNT 6.2 10^3/ul (4.8-10.8)
[2017-05-27 10:59] LABS: ALANINE AMINOTRANSFERASE 735 IU/L (13-69); ALBUMIN 4.1 g/dl (3.3-4.9); ALBUMIN/GLOBULIN RATIO 1.32; ALKALINE PHOSPHATASE 645 IU/L (42-121); ANION GAP 18 (8-16); ASPARTATE AMINO TRANSFERASE 588 IU/L (15-46); BILIRUBIN,INDIRECT 1.5 mg/dl (0-1.1); BILIRUBIN,TOTAL 8.1 mg/dl (0.2-1.3); BLOOD UREA NITROGEN 8 mg/dl (7-20); CARBON DIOXIDE 25 mmol/L (21-31); CHLORIDE 102 mmol/L (97-110); CREATININE 0.56 mg/dl (0.61-1.24); GLUCOSE 162 mg/dl (70-220); POTASSIUM 3.8 mmol/L (3.5-5.1); SODIUM 141 mmol/L (135-144); TOTAL PROTEIN 7.2 g/dl (6.1-8.1)
[2017-05-27] MEDS ORDERED: LORAZEPAM 1 MG TAB PO ONE (11:30)
--- NOTE | 2017-05-27 13:15 | PN ---
Date/Time of Note Date/Time of Note DATE: 05/27/17 TIME: 13:13 Assessment/Plan VTE Prophylaxis VTE Prophylaxis Intervention: LMWH Lines/Catheters IV Catheter Type (from Nrs): Peripheral IV Assessment/Plan Chief Complaint/Hosp Course 56 yo male wtih h/o DMII, etoh induced pancreatitis presenting with jaundice and RUQ pain Ddx concerning for malignant biliary obstruction. Choledocholithiasis also possible. Does not seem related to etoh use as he has been sober - MRCP pending, then likely ERCP for stent vs biopsy etc - Acute hepatitis panel pending DMII: - basal/bolus insulin Discharge following workup Problems: Subjective 24 Hr Interval Summary Free Text/Dictation No change to clinical status Mild RUQ pain Tolerating PO normally Awaiting MRCP Exam/Review of Systems Vital Signs Vitals Vital Signs Date Time Temp Pulse Resp B/P Pulse Ox O2 Delivery O2 Flow Rate FiO2 05/27/17 10:44 67 20 176/90 05/27/17 08:01 98.3 98 05/26/17 20:30 Room Air Intake and Output 05/26/17 05/26/17 05/27/17 15:00 23:00 07:00 Intake Total 200 ml Balance 200 ml Exam Appears well, comfortable mild jaundice Abd soft, no rebound or guarding, midl RUQ tenderness Results Result Diagram: 05/27/17 1008 05/27/17 1008 Results 24 hrs Laboratory Tests Test 05/26/17 15:17 05/26/17 21:30 05/27/17 02:22 05/27/17 07:55 White Blood Count 7.0 Red Blood Count 4.52 L Hemoglobin 12.9 L Hematocrit 37.3 L Mean Corpuscular Volume 82.5 Mean Corpuscular Hemoglobin 28.5 L Mean Corpuscular Hemoglobin Concent 34.6 Red Cell Distribution Width 14.1 Platelet Count 131 L Mean Platelet Volume 12.2 #H Neutrophils % 69.2 Lymphocytes % 21.4 Monocytes % 7.5 Eosinophils % 0.7 Basophils % 0.6 Nucleated Red Blood Cells % 0.0 Neutrophils # 4.8 Lymphocytes # 1.5 Monocytes # 0.5 Eosinophils # 0.1 Basophils # 0.0 Nucleated Red Blood Cells # 0.0 Prothrombin Time 12.6 Prothrombin Time Ratio 1.0 INR International Normalized Ratio 0.94 Activated Partial Thromboplast Time 27.0 Sodium Level 141 Potassium Level 4.3 Chloride Level 100 Carbon Dioxide Level 25 Anion Gap 20 H Blood Urea Nitrogen 10 Creatinine 0.69 Glucose Level 260 H Calcium Level 9.4 Total Bilirubin 7.6 H Direct Bilirubin 6.20 H Indirect Bilirubin 1.4 H Aspartate Amino Transf (AST/SGOT) 605 H Alanine Aminotransferase (ALT/SGPT) 778 H Alkaline Phosphatase 649 H Troponin I < 0.012 Total Protein 7.6 Albumin 4.5 Globulin 3.10 Albumin/Globulin Ratio 1.45 Lipase 408 H Bedside Glucose 204 192 205 Test 05/27/17 10:08 05/27/17 12:12 White Blood Count 6.2 Red Blood Count 4.48 L Hemoglobin 13.2 L Hematocrit 36.2 L Mean Corpuscular Volume 80.8 L Mean Corpuscular Hemoglobin 29.5 Mean Corpuscular Hemoglobin Concent 36.5 Red Cell Distribution Width 14.6 H Platelet Count 117 L Mean Platelet Volume 12.3 H Neutrophils % 67.7 Lymphocytes % 20.5 Monocytes % 10.0 Eosinophils % 1.3 Basophils % 0.2 Nucleated Red Blood Cells % 0.0 Neutrophils # 4.2 Lymphocytes # 1.3 Monocytes # 0.6 Eosinophils # 0.1 Basophils # 0.0 Nucleated Red Blood Cells # 0.0 Sodium Level 141 Potassium Level 3.8 Chloride Level 102 Carbon Dioxide Level 25 Anion Gap 18 H Blood Urea Nitrogen 8 Creatinine 0.56 L Glucose Level 162 Calcium Level 9.0 Total Bilirubin 8.1 H Direct Bilirubin 6.60 H Indirect Bilirubin 1.5 H Aspartate Amino Transf (AST/SGOT) 588 H Alanine Aminotransferase (ALT/SGPT) 735 H Alkaline Phosphatase 645 H Total Protein 7.2 Albumin 4.1 Globulin 3.10 Albumin/Globulin Ratio 1.32 Hepatitis B Surface Antigen Pending Hepatitis B Core Total Antibody Pending Hepatitis C Antibody Pending Bedside Glucose 123 Medications Medications Current Medications Diagnostic Test (Pha) (Accu-Chek) 1 ea 02 XX Last administered on 05/27/17t 02: 29; Admin Dose 1 EA; Start 05/27/17 at 02:00 Insulin Glargine (Lantus) 11 unit DAILY@08 SC Last administered on 05/27/17 08 :19; Admin Dose 11 UNIT; Start 05/27/17 at 08:00 Miscellaneous Information 1 ea NOTE XX ; Start 05/26/17 at 19:00 Glucose (Glutose) 15 gm Q15M PRN PO DECREASED GLUCOSE; Start 05/26/17 at 19:00 Glucose (Glutose) 22.5 gm Q15M PRN PO DECREASED GLUCOSE; Start 05/26/17 at 19: 00 Dextrose (D50w Syringe) 25 ml Q15M PRN IV DECREASED GLUCOSE; Start 05/26/17 at 19:00 Dextrose (D50w Syringe) 50 ml Q15M PRN IV DECREASED GLUCOSE; Start 05/26/17 at 19:00 Glucagon (Glucagen) 1 mg Q15M PRN IM DECREASED GLUCOSE; Start 05/26/17 at 19:00 Glucose (Glutose) 15 gm Q15M PRN BUCCAL DECREASED GLUCOSE; Start 05/26/17 at 19 :00 Morphine Sulfate 2 mg 2 mg Q4H PRN IV PAIN Last administered on 05/27/17 08:26 ; Admin Dose 2 MG; Start 05/26/17 at 22:00 Sodium Chloride (NS) 1,000 ml @ 80 mls/hr [id number] IV Last administered on 05/27 02:39; Admin Dose 80 MLS/HR; Start 05/27/17 at 01:50 Ondansetron HCl (Zofran Inj) 4 mg Q6H PRN IV NAUSEA AND/OR VOMITING; Start at 02:00 SOBIA GALE MD May 27, 2017 13:15
[2017-05-27] MEDS: AMLODIPINE 5 MG TAB NGT SCH (14:44)
[2017-05-27 19:37] LABS: HEPATITIS B CORE ANTIBODY NEGATIVE (NEGATIVE)
[2017-05-27] MEDS: hydrALAzine 20 MG INJ IV PRN (21:16)
--- NOTE | 2017-05-27 21:47 | CONS ---
Date/Time of Note Date/Time of Note DATE: 05/27/17 TIME: 15:44 Assessment/Plan Assessment/Plan Additional Assessment/Plan [facility] INPATIENT CONSULTATION NOTE DATE OF SERVICE: 05/27/2017 PLACE OF SERVICE: [facility], fourth floor ASSESSMENT AND PLAN: A very-pleasant 56-year-old gentleman with comorbidities including DMII, previous ETOH abuse and h/o pancreatitis, admitted for jaundice and abdominal pain. Likely etiology is benign disease, but given 30 lb weight loss, important to evaluate for malignancy. No indication for acute surgical intervention. Needs GI eval with likely need for ERCP. Further plans after above. I explained all of this to the patient (no family in the room) and answered all their questions to the best my ability. I believe that the patient and appear to understand and agree with the plans. With above assessment, I've recommended the followin. Continue inpatient management 2. MRCP 3. CT with IV contrast pancreas protocol 4. Consider GI consultation for ERCP 3. Multidisciplinary tumor board presentation 4. Tumor markers 5. Further HPB management after above Thank you very much for having me involved in the care of this very pleasant patient and wonderful family. If you have any questions, please feel free to contact me at [phone]. Nature of presenting problem: High severity Please note that, given the extensive number of diagnoses or management options , the extensive amount and/or complexity of data needed to be reviewed, and high risk of complications and/or morbidity or mortality, this qualifies as high complexity type of decision-making. Disclaimer: Inadvertent spelling and grammatical errors are likely due to EHR/ dictation software use and do not reflect on the quality of delivered patient care. Also, please note that the electronic time recorded on this node does not necessarily reflect the actual time of the visit. Updated clinical summary: A very-pleasant 56-year-old gentleman with comorbidities including DMII, previous ETOH abuse and h/o pancreatitis, admitted for jaundice and abdominal pain. Comorbidities: 1. DMII 2. Prior reported pancreatitis 3. ETOH CONSULTATION REQUESTED BY: Christian Ac MD HISTORY OF PRESENT ILLNESS: The patient is a very pleasant 56-year-old gentleman with comorbidities including DMII, previous ETOH abuse and h/o pancreatitis, admitted for jaundice and abdominal pain. + dark urine, + jaundice for a few weeks, + abd pain, + nausea (mild) and - vomiting. 30 lb weight loss. Previous pancreatitis. Quit drinking Oct 2016; heavy drinking for a few decades before that. No other major complaints during my visit. ALLERGIES: PCN (? reaction) MEDICATIONS Documented in the electronic records and reviewed by me. Please see the electronic records for details, as well as details for inpatient medications which were also reviewed by me. Home medications include metformin and Januvia. SOCIAL HISTORY: The patient lives with family. - Tob; - ETOH (quit Oct 2016 after decades of heavy use); - IVDU FAMILY HISTORY: There are no significant medical, surgical or oncologic issues in the family as reported by the patient or reflected in the chart. REVIEW OF SYSTEMS: Other than mentioned above, there were no other pertinent positives or pertinent negatives in an otherwise complete 14 point review of systems. PHYSICAL EXAMINATION GENERAL: The patient appears to be a very pleasant gentleman of descent lying in bed, appearing stated age, and otherwise in no acute distress. BMI: 21.9 VITAL SIGNS: AVSS (please also see auto important data if available as well as the electronic records) HEENT: Normocephalic and atraumatic. Extraocular muscles and hearing are grossly intact bilaterally and symmetrically. Sclerae are nonicteric. Oral cavity is clear; oral mucosa appear to be pink and moist. Dentition: fair. NECK: Supple. There is no lymphadenopathy or JVD. There is no submental, submandibular or supraclavicular lymphadenopathy. CHEST: Rises symmetrically with each breath; patient is breathing comfortably. There are no audible wheezes, rales or rhonchi on the gross exam. HEART: Pulse is regular and palpable on the right wrist. Capillary refill is normal. Carotid pulses are palpable bilaterally and symmetrically in the neck. EXTREMITIES: Lower extremities contain no pitting edema around the ankles bilaterally and symmetrically. ABDOMEN: Abdomen is soft, mildly tender in RUQ and nondistended. No evidence of ascites, organomegaly, caput medusae, engorged subcutaneous veins, or other abnormalities. There are no peritoneal signs or guarding. SKIN: Appears to be pink and feels warm to touch. NEUROLOGIC: Awake, alert, and follows commands appropriately. LABORATORY DATA: See below. IMAGING: See electronic chart. Please note that I've personally reviewed all pertinent available images and I agree in general with their overall reported findings. Consultation Date/Type/Reason Admit Date/Time Past Medical History Medical History: pancreatitis Past Surgical History Past Surgical Hx: no surgical history Social History Smoking Status: Never smoker Exam/Review of Systems Vital Signs Vitals Vital Signs Date Time Temp Pulse Resp B/P Pulse Ox O2 Delivery O2 Flow Rate FiO2 05/27/17 19:53 98.1 70 20 176/85 97 05/26/17 20:30 Room Air Intake and Output 05/26/17 05/26/17 05/27/17 15:00 23:00 07:00 Intake Total 200 ml Balance 200 ml Results Result Diagram: 05/27/17 1008 05/27/17 1008 Results 24 hrs Laboratory Tests Test 05/26/17 21:30 05/27/17 02:22 05/27/17 07:55 05/27/17 10:08 Bedside Glucose 204 192 205 White Blood Count 6.2 Red Blood Count 4.48 L Hemoglobin 13.2 L Hematocrit 36.2 L Mean Corpuscular Volume 80.8 L Mean Corpuscular Hemoglobin 29.5 Mean Corpuscular Hemoglobin Concent 36.5 Red Cell Distribution Width 14.6 H Platelet Count 117 L Mean Platelet Volume 12.3 H Neutrophils % 67.7 Lymphocytes % 20.5 Monocytes % 10.0 Eosinophils % 1.3 Basophils % 0.2 Nucleated Red Blood Cells % 0.0 Neutrophils # 4.2 Lymphocytes # 1.3 Monocytes # 0.6 Eosinophils # 0.1 Basophils # 0.0 Nucleated Red Blood Cells # 0.0 Sodium Level 141 Potassium Level 3.8 Chloride Level 102 Carbon Dioxide Level 25 Anion Gap 18 H Blood Urea Nitrogen 8 Creatinine 0.56 L Glucose Level 162 Calcium Level 9.0 Total Bilirubin 8.1 H Direct Bilirubin 6.60 H Indirect Bilirubin 1.5 H Aspartate Amino Transf (AST/SGOT) 588 H Alanine Aminotransferase (ALT/SGPT) 735 H Alkaline Phosphatase 645 H Total Protein 7.2 Albumin 4.1 Globulin 3.10 Albumin/Globulin Ratio 1.32 Hepatitis B Surface Antigen NEGATIVE Hepatitis B Core Total Antibody NEGATIVE Hepatitis C Antibody NEGATIVE Test 05/27/17 12:12 05/27/17 17:10 Bedside Glucose 123 159 Medications Medications Current Medications Diagnostic Test (Pha) (Accu-Chek) 1 ea 02 XX Last administered on 05/27/17t 02: 29; Admin Dose 1 EA; Start 05/27/17 at 02:00 Insulin Glargine (Lantus) 11 unit DAILY@08 SC Last administered on 05/27/17 08 :19; Admin Dose 11 UNIT; Start 05/27/17 at 08:00 Miscellaneous Information 1 ea NOTE XX ; Start 05/26/17 at 19:00 Glucose (Glutose) 15 gm Q15M PRN PO DECREASED GLUCOSE; Start 05/26/17 at 19:00 Glucose (Glutose) 22.5 gm Q15M PRN PO DECREASED GLUCOSE; Start 05/26/17 at 19: 00 Dextrose (D50w Syringe) 25 ml Q15M PRN IV DECREASED GLUCOSE; Start 05/26/17 at 19:00 Dextrose (D50w Syringe) 50 ml Q15M PRN IV DECREASED GLUCOSE; Start 05/26/17 at 19:00 Glucagon (Glucagen) 1 mg Q15M PRN IM DECREASED GLUCOSE; Start 05/26/17 at 19:00 Glucose (Glutose) 15 gm Q15M PRN BUCCAL DECREASED GLUCOSE; Start 05/26/17 at 19 :00 Morphine Sulfate 2 mg 2 mg Q4H PRN IV PAIN Last administered on 05/27/17 20:03 ; Admin Dose 2 MG; Start 05/26/17 at 22:00 Sodium Chloride (NS) 1,000 ml @ 80 mls/hr [id number] IV Last administered on 05/27 14:13; Admin Dose 80 MLS/HR; Start 05/27/17 at 01:50 Ondansetron HCl (Zofran Inj) 4 mg Q6H PRN IV NAUSEA AND/OR VOMITING; Start at 02:00 Amlodipine Besylate (Norvasc) 5 mg DAILY NGT Last administered on 05/27/17 14: 44; Admin Dose 5 MG; Start 05/27/17 at 14:30 RENETTA CHEEMA M.D. May 27, 2017 20:54
[2017-05-27] MEDS ORDERED: BARIUM SULF 2% 450 ML BTL (BERRY SMOOTHIE) PO ONE (22:00)
[2017-05-28] MEDS: morphine 2 MG INJ IV PRN ×2 (00:13→07:43)
[2017-05-28] MEDS ORDERED: SOD CHLORIDE 0.9% 100 ML ONE (01:22)
[2017-05-28] MEDS ORDERED: IOHEXOL 300MG/ML 150 ML BTL ONE (01:22)
[2017-05-28 02:24] VITALS: BP 131/79; RESP 20
[2017-05-28] MEDS: SOD CHLORIDE 0.9% 1,000 ML IV SCH ×2 (02:41→02:50)
[2017-05-28] MEDS: ACCU-CHEK XX SCH (02:45)
[2017-05-28] MEDS ORDERED: SOD CHLORIDE 0.9% 500 ML IV ONE (04:00)
--- NOTE | 2017-05-28 04:05 | RADRPT ---
PROCEDURE: CT Abdomen and pelvis with and without contrast. CLINICAL INDICATION: Pancreatic mass. TECHNIQUE: CT scan of the abdomen and pelvis with contrast was performed on a multi-detector high -resolution CT scanner. The patient was scanned before and after the uncomplicated administration o f 100 cc of Omnipaque 300 intravenous contrast. Images were obtained pre contrast in the arterial a nd portal venous phases. Coronal and sagittal reformatted images were obtained from the axial [facility] e images. Images were reviewed on a high-resolution PACS workstation. One or more of the following dose reduction techniques were used: - Automated exposure control. - Adjustment of the mA and/or kV according to patient size. - Use of iterative reconstruction technique. Exam CTD/vol = 7.93 mGy. Total exam DLP = 930.40 mGy-cm. COMPARISON: 05/26/2017. FINDINGS: Evaluation of the lung bases demonstrates no pleural or parenchymal disease. Abdomen: The liver is normal in size with no focal mass identified. There is mild diffuse gallblad judie wall thickening and multiple small gallstones. There is moderate intrahepatic biliary ductal di latation. The common bile duct is dilated to 10 mm. There is a poorly defined heterogeneous, hypod ense mass within the pancreatic head measuring approximately 2.1 x 1.4 cm. The pancreatic duct is mildly dilated measuring up to 3 mm. The spleen and bilateral adrenal glands are within normal limi ts. Bilateral kidneys are normal in size with symmetric enhancement. There is no focal mass, hydro nephrosis or hydroureter. There is no retroperitoneal adenopathy. The abdominal aorta is of normal caliber. Oral contrast reaches the mid small bowel. There is moderate retained stool within the colon. Ther e is no bowel obstruction or free air. A normal appendix is identified. There is no diverticulosis or diverticulitis. There is mild intra-abdominal stranding and trace free fluid. Pelvis: The bladder is moderately distended and demonstrates mild wall thickening. The prostate an d seminal vesicles are within normal limits. There is no significant pelvic adenopathy or free flui d. Evaluation of the osseous structures demonstrates no suspicious lytic or blastic lesion. IMPRESSION: Poorly defined mass within the pancreatic head measuring 2.1 x 1.4 cm. Moderate biliary ductal dilatation. Cholelithiasis with mild gallbladder wall thickening and pericholecystic fluid. Moderate retained stool within the colon. Mild intra-abdominal stranding and trace free fluid. Moderately distended bladder with mild wall thickening. Clinically correlate for cystitis. .Paulo Adkins MD, MD Date Time Electronically viewed and signed by .Paulo Adkins MD, MD on 05/28/2017 04:05 .T/
[2017-05-28 06:00] LABS: ALBUMIN 3.8 g/dl (3.3-4.9); ALBUMIN/GLOBULIN RATIO 1.15; BILIRUBIN,DIRECT 7.9 mg/dl (0.00-0.20); BILIRUBIN,INDIRECT 1.7 mg/dl (0-1.1); BILIRUBIN,TOTAL 9.6 mg/dl (0.2-1.3); CALCIUM 9.2 mg/dl (8.4-10.2); CREATININE 0.52 mg/dl (0.61-1.24); TOTAL PROTEIN 7.1 g/dl (6.1-8.1)
[2017-05-28 07:11] LABS: CANCER ANTIGEN 125 24.3 U/ml (0.0-35.0); CARCINOEMBRYONIC ANTIGEN 3.2 ng/ml (0.0-5.0)
[2017-05-28 07:38] VITALS: BP 180/91; RESP 18
[2017-05-28] MEDS: AMLODIPINE 5 MG TAB NGT SCH (08:20)
[2017-05-28] MEDS: INSULIN ASPART [NOVOLOG] 3 ML PEN SC SCH ×4 (08:25→20:38)
[2017-05-28] MEDS: INSULIN GLARGINE [LANtus] 3 ML PEN SC SCH (08:25)
[2017-05-28 14:05] VITALS: BP 167/83; RESP 18
[2017-05-28] MEDS: D5W-0.45 NACL + KCL 20 MEQ 1,000 ML IV SCH ×2 (14:10→23:58)
--- NOTE | 2017-05-28 14:10 | PN ---
Date/Time of Note Date/Time of Note DATE: 05/28/17 TIME: 14:06 Assessment/Plan Lines/Catheters IV C[facility]from [facility] Peripheral IV Assessment/Plan Assessment/Plan [facility] Progress Note Date of Service: 05/28/17 Today's Impression & Plan: Overall stable with mass in head of pancreas, concerning for malignancy. Needs decompression, possible neoadjuvant therapy prior to Whipple procedure. With above assessment, I've recommended the following for today: 1. GI consultation for ERCP and metallic stent placement (neelima-procedural antimicrobials and hydration) 2. Multidisciplinary tumor board presentation 3. Outpatient follow up to further discuss treatment options in 2-3 weeks, once Bili has decreased enough Nature of presenting problem: High complexity Thank you again for your great care of this very pleasant patient and wonderful family. If there are any questions, please feel free to call me at [phone]. Disclaimer: Inadvertent spelling or grammatical errors are likely due to EHR/ dictation software use and do not reflect on the overall quality of patient care. Updated clinical summary: A very-pleasant 56-year-old gentleman with comorbidities including DMII, previous ETOH abuse and h/o pancreatitis, admitted for jaundice and abdominal pain. Comorbidities: 1. DMII 2. Prior reported pancreatitis 3. ETOH Subjective: No major events or complaints; CT showed concerning features with possible mass in head of panceras; no abd pain and under control with medications; no n/v/d; no sob or cp; + flatus; - BM; + activity Objective: Vitals: See below Exam: GENERAL: On exam, the patient was laying in bed and appeared to be comfortable and in no acute distress. ABDOMEN: Soft, nontender and nondistended. There are no peritoneal signs or guarding. SKIN: Skin appears to be jaundiced and feels warm to touch. NEUROLOGIC: Patient is awake, alert, and follows commands appropriately. Exam/Review of Systems Vital Signs Vitals Vital Signs Date Time Temp Pulse Resp B/P Pulse Ox O2 Delivery O2 Flow Rate FiO2 05/28/17 07:38 97.9 73 18 180/91 98 05/26/17 20:30 Room Air Intake and Output 05/27/17 05/27/17 05/28/17 15:00 23:00 07:00 Intake Total 560 ml 280 ml 2280 ml Output Total 600 ml Balance 560 ml 280 ml 1680 ml Results Result Diagram: 05/27/17 1008 05/28/17 0513 RENETTA CHEEMA M.D. May 28, 2017 14:10
[2017-05-28] MEDS: morphine 4 MG/ML VIAL IV PRN (14:21)
[2017-05-28] MEDS ORDERED: morphine 4 MG/ML VIAL IV PRN (14:30)
--- NOTE | 2017-05-28 14:58 | CONS ---
Date/Time of Note Date/Time of Note DATE: 05/28/17 TIME: 14:51 Assessment/Plan Assessment/Plan Additional Assessment/Plan Assessment: * Pancreatic mass, highly suspect for malignant neoplasm * Elevated CA-19-9 * Obstructive jaundice, likely secondary to above * History of pancreatitis October 2016 * History of alcohol abuse, abstinent since October 2016 * Diabetes mellitus type 2 * Hypertension * Significant, unexplained weight loss Plan: * MRI/MRCP, CT-guided biopsy of the pancreas if possible * Pending above results ERCP with stenting . Consultation Date/Type/Reason Admit Date/Time Date of Consultation: May 28, 2017 Type of Consultation: GI Reason for Consultation * Jaundice/pancreatic mass Hx of Present Illness 57-year-old male known to GI service from previous evaluation October of this year at which time the patient presented with an episode of pancreatitis likely related to alcohol. The patient claims abstinent since October, this is corroborated by his . Patient now presents to the hospital with new onset jaundice with minimal GI symptomatology consistent of mild epigastric discomfort and some nausea. Of note the patient has lost according to his approximately 100 pounds. Her luminary evaluation included a CT of the abdomen with and without contrast that showed a mass in the head of the pancreas and moderate dilatation of the biliary tree. The mass is highly suspicious for malignant neoplasm. In addition CA-19-9 is elevated over the thousand which is also consistent with a pancreatic malignancy. At the present time the patient scheduled for MRI MRCP tomorrow and I will add a CT-guided biopsy of the pancreas for tissue diagnosis, ultimately the patient will probably benefit from ERCP and stent placement to restore bile flow. Oncology consultation should also be obtained. The patient and his have been informed of the findings and the concerns regarding possibility of malignancy and her [place]. The patient also carries a diagnosis of diabetes mellitus. Constitutional: improved, no complaints, other (Significant weight loss) Eyes: no complaints ENT: no complaints Respiratory: no complaints Cardiovascular: no complaints Gastrointestinal: other (See HPI) Genitourinary: no complaints Musculoskeletal: no complaints Skin: no complaints Neurologic: no complaints Endocrine: no complaints Lymphatic: no complaints Psychological: nl mood/affect, no complaints Immunologic: no complaints Past Medical History * Former alcohol abuse, abstinent since October 2016, corroborated with * Episode of pancreatitis October 2016 * Diabetes mellitus type 2 * Hypertension Medical History: pancreatitis Past Surgical History Past Surgical Hx: no surgical history Family History Significant Family History: no pertinent family hx Social History Alcohol Use: sober (Since October 2016) Smoking Status: Never smoker Drug Use: none Exam/Review of Systems Vital Signs Vitals Vital Signs Date Time Temp Pulse Resp B/P Pulse Ox O2 Delivery O2 Flow Rate FiO2 05/28/17 14:05 98.7 87 18 167/83 96 05/26/17 20:30 Room Air Intake and Output 05/27/17 05/27/17 05/28/17 15:00 23:00 07:00 Intake Total 560 ml 280 ml 2280 ml Output Total 600 ml Balance 560 ml 280 ml 1680 ml Exam Constitutional: alert, oriented, well developed Psych: nl mood/affect, no complaints Head: atraumatic, normocephalic Eyes: EOMI, PERRL, nl conjunctiva, nl lids, nl sclera ENMT: nl external ears & nose, nl lips & teeth, nl nasal mucosa & septum Neck: non-tender, supple Respiratory: clear to auscultation, normal air movement Cardiovascular: nl pulses, regular rate and rhythm Gastrointestinal: bowel sounds, nl liver, spleen, non-tender, soft, No ascites, No distended, No hepatomegaly, No mass, No rebound or guarding Musculoskeletal: nl extremities to inspection, nl gait and stance Extremities: normal pulses Neurological: [employer] II-XII intact, nl mental status, nl speech, nl strength Skin: nl turgor, No rash or lesions Lymph: nl lymph nodes Results Result Diagram: 05/27/17 1008 05/28/17 0513 Results 24 hrs Laboratory Tests Test 05/27/17 17:10 05/27/17 21:28 05/28/17 02:44 05/28/17 05:13 Bedside Glucose 159 206 175 Sodium Level 139 Potassium Level 4.0 Chloride Level 97 Carbon Dioxide Level 26 Anion Gap 20 H Blood Urea Nitrogen 8 Creatinine 0.52 L Glucose Level 189 Calcium Level 9.2 Total Bilirubin 9.6 H Direct Bilirubin 7.90 H Indirect Bilirubin 1.7 H Aspartate Amino Transf (AST/SGOT) 445 H Alanine Aminotransferase (ALT/SGPT) 668 H Alkaline Phosphatase 698 H Total Protein 7.1 Albumin 3.8 Globulin 3.30 H Albumin/Globulin Ratio 1.15 Alpha Fetoprotein 2.89 Carcinoembryonic Antigen 3.2 CA 19-9 Antigen 1720.0 H CA 125 Antigen 24.3 Test 05/28/17 08:04 05/28/17 12:20 Bedside Glucose 149 186 Medications Medications Current Medications Diagnostic Test (Pha) (Accu-Chek) 1 ea 02 XX Last administered on 05/28/17 02: 45; Admin Dose 1 EA; Start 05/27/17 at 02:00 Insulin Glargine (Lantus) 11 unit DAILY@08 SC Last administered on 05/28/17 08 :25; Admin Dose 11 UNIT; Start 05/27/17 at 08:00 Miscellaneous Information 1 ea NOTE XX ; Start 05/26/17 at 19:00 Glucose (Glutose) 15 gm Q15M PRN PO DECREASED GLUCOSE; Start 05/26/17 at 19:00 Glucose (Glutose) 22.5 gm Q15M PRN PO DECREASED GLUCOSE; Start 05/26/17 at 19: 00 Dextrose (D50w Syringe) 25 ml Q15M PRN IV DECREASED GLUCOSE; Start 05/26/17 at 19:00 Dextrose (D50w Syringe) 50 ml Q15M PRN IV DECREASED GLUCOSE; Start 05/26/17 at 19:00 Glucagon (Glucagen) 1 mg Q15M PRN IM DECREASED GLUCOSE; Start 05/26/17 at 19:00 Glucose (Glutose) 15 gm Q15M PRN BUCCAL DECREASED GLUCOSE; Start 05/26/17 at 19 :00 Ondansetron HCl (Zofran Inj) 4 mg Q6H PRN IV NAUSEA AND/OR VOMITING; Start at 02:00 Amlodipine Besylate (Norvasc) 5 mg DAILY NGT Last administered on 05/28/17 08: 20; Admin Dose 5 MG; Start 05/27/17 at 14:30 Hydralazine HCl (Apresoline) 10 mg Q6H PRN IV ELEVATED BLOOD PRESSURE Last administered on 05/27/17 21:16; Admin Dose 10 MG; Start 05/27/17 at 21:00 Miscellaneous Information VOLUMEN (BARIUM SULFA... ONCE XX ; Start 05/27/17 at 23:00 Potassium Chloride/Dextrose/ Sod Cl (D5-1/2ns + KCl 20 Meq) 1,000 ml @ 100 mls/ hr Q10H IV ; Start 05/28/17 at 14:10 Morphine Sulfate (morphine) 2 mg Q4H PRN IV PAIN Last administered on t 14:21; Admin Dose 2 MG; Start 05/28/17 at 14:14 JOSÉ MIGUEL GREGORY MD May 28, 2017 14:58
[2017-05-28] MEDS: hydrALAzine 20 MG INJ IV PRN (15:06)
--- NOTE | 2017-05-28 15:30 | PN ---
Date/Time of Note Date/Time of Note DATE: 05/28/17 TIME: 15:28 Assessment/Plan VTE Prophylaxis VTE Prophylaxis Intervention: LMWH Lines/Catheters IV Catheter Type (from [facility]rs[facility]): Peripheral IV Assessment/Plan Chief Complaint/Hosp Course 56 yo male wtih h/o DMII, etoh induced pancreatitis presenting with jaundice and RUQ pain Ddx concerning for malignant biliary obstruction - Needs tissue dx and stent via ERCP. GI/surgery both followign DMII: - basal/bolus insulin Hypertension: - Amlodipine 5 Alcohol use disorder is resolved, sober for 6 months Discharge plan pending workup Problems: Subjective 24 Hr Interval Summary Free Text/Dictation Pain controlled Feels well Discussed finding of CT pancreas showing likely malignancy w elevated Ca 19 9, plan for further workup Exam/Review of Systems Vital Signs Vitals Vital Signs Date Time Temp Pulse Resp B/P Pulse Ox O2 Delivery O2 Flow Rate FiO2 05/28/17 14:05 98.7 87 18 167/83 96 05/26/17 20:30 Room Air Intake and Output 05/27/17 05/27/17 05/28/17 15:00 23:00 07:00 Intake Total 560 ml 280 ml 2280 ml Output Total 600 ml Balance 560 ml 280 ml 1680 ml Results Result Diagram: 05/27/17 1008 05/28/17 0513 Results 24 hrs Laboratory Tests Test 05/27/17 17:10 05/27/17 21:28 05/28/17 02:44 05/28/17 05:13 Bedside Glucose 159 206 175 Sodium Level 139 Potassium Level 4.0 Chloride Level 97 Carbon Dioxide Level 26 Anion Gap 20 H Blood Urea Nitrogen 8 Creatinine 0.52 L Glucose Level 189 Calcium Level 9.2 Total Bilirubin 9.6 H Direct Bilirubin 7.90 H Indirect Bilirubin 1.7 H Aspartate Amino Transf (AST/SGOT) 445 H Alanine Aminotransferase (ALT/SGPT) 668 H Alkaline Phosphatase 698 H Total Protein 7.1 Albumin 3.8 Globulin 3.30 H Albumin/Globulin Ratio 1.15 Alpha Fetoprotein 2.89 Carcinoembryonic Antigen 3.2 CA 19-9 Antigen 1720.0 H CA 125 Antigen 24.3 Test 05/28/17 08:04 05/28/17 12:20 Bedside Glucose 149 186 Medications Medications Current Medications Diagnostic Test (Pha) (Accu-Chek) 1 ea 02 XX Last administered on 05/28/17 02: 45; Admin Dose 1 EA; Start 05/27/17 at 02:00 Insulin Glargine (Lantus) 11 unit DAILY@08 SC Last administered on 05/28/17 08 :25; Admin Dose 11 UNIT; Start 05/27/17 at 08:00 Miscellaneous Information 1 ea NOTE XX ; Start 05/26/17 at 19:00 Glucose (Glutose) 15 gm Q15M PRN PO DECREASED GLUCOSE; Start 05/26/17 at 19:00 Glucose (Glutose) 22.5 gm Q15M PRN PO DECREASED GLUCOSE; Start 05/26/17 at 19: 00 Dextrose (D50w Syringe) 25 ml Q15M PRN IV DECREASED GLUCOSE; Start 05/26/17 at 19:00 Dextrose (D50w Syringe) 50 ml Q15M PRN IV DECREASED GLUCOSE; Start 05/26/17 at 19:00 Glucagon (Glucagen) 1 mg Q15M PRN IM DECREASED GLUCOSE; Start 05/26/17 at 19:00 Glucose (Glutose) 15 gm Q15M PRN BUCCAL DECREASED GLUCOSE; Start 05/26/17 at 19 :00 Ondansetron HCl (Zofran Inj) 4 mg Q6H PRN IV NAUSEA AND/OR VOMITING; Start at 02:00 Amlodipine Besylate (Norvasc) 5 mg DAILY NGT Last administered on 05/28/17 08: 20; Admin Dose 5 MG; Start 05/27/17 at 14:30 Hydralazine HCl (Apresoline) 10 mg Q6H PRN IV ELEVATED BLOOD PRESSURE Last administered on 05/28/17 15:06; Admin Dose 10 MG; Start 05/27/17 at 21:00 Miscellaneous Information VOLUMEN (BARIUM SULFA... ONCE XX ; Start 05/27/17 at 23:00 Potassium Chloride/Dextrose/ Sod Cl (D5-1/2ns + KCl 20 Meq) 1,000 ml @ 100 mls/ hr Q10H IV ; Start 05/28/17 at 14:10 Morphine Sulfate (morphine) 2 mg Q4H PRN IV PAIN Last administered on 14:21; Admin Dose 2 MG; Start 05/28/17 at 14:14 SOBIA GALE MD May 28, 2017 15:30
[2017-05-28] MEDS: POLYETHYLENE GLYCOL 17 GM PACKET PO SCH (17:10)
[2017-05-28 20:09] VITALS: BP 175/83; RESP 18
[2017-05-29] MEDS: morphine 4 MG/ML VIAL IV PRN ×2 (00:14→08:22)
[2017-05-29] MEDS: ACCU-CHEK XX SCH (02:04)
[2017-05-29 02:40] VITALS: BP 134/76; RESP 19
[2017-05-29 07:41] VITALS: BP 140/79; RESP 20
[2017-05-29] MEDS: POLYETHYLENE GLYCOL 17 GM PACKET PO SCH (08:22)
[2017-05-29] MEDS: AMLODIPINE 5 MG TAB NGT SCH (08:22)
[2017-05-29] MEDS: INSULIN GLARGINE [LANtus] 3 ML PEN SC SCH (08:50)
[2017-05-29] MEDS: INSULIN ASPART [NOVOLOG] 3 ML PEN SC SCH ×5 (08:50→21:00)
[2017-05-29] MEDS: D5W-0.45 NACL + KCL 20 MEQ 1,000 ML IV SCH (10:59)
[2017-05-29 14:11] VITALS: BP 135/71; RESP 20
--- NOTE | 2017-05-29 14:42 | PN ---
Date/Time of Note Date/Time of Note DATE: 05/29/17 TIME: 14:40 Assessment/Plan VTE Prophylaxis VTE Prophylaxis Intervention: ambulation Lines/Catheters IV Catheter Type (from Nrs): Peripheral IV Assessment/Plan Chief Complaint/Hosp Course 56 yo male with h/o DMII, etoh induced pancreatitis presenting with jaundice and RUQ pain 1. Jaundice with right upper quadrant pain concerning for malignant biliary obstruction - Needs tissue dx and stent via ERCP. GI/surgery both following -MRCP pending 2. DMII: - basal/bolus insulin 3. Hypertension: - Amlodipine 5 4. Alcohol use disorder is resolved, sober for 6 months Prophylaxis: Ambulation Problems: Subjective 24 Hr Interval Summary Constitutional: no complaints Exam/Review of Systems Vital Signs Vitals Vital Signs Date Time Temp Pulse Resp B/P Pulse Ox O2 Delivery O2 Flow Rate FiO2 05/29/17 14:11 98.4 77 20 135/71 95 05/26/17 20:30 Room Air Intake and Output 05/28/17 05/28/17 05/29/17 15:00 23:00 07:00 Intake Total 300 ml 1080 ml 693 ml Balance 300 ml 1080 ml 693 ml Exam Constitutional: alert Respiratory: clear to auscultation Cardiovascular: regular rate and rhythm Gastrointestinal: soft, No distended Musculoskeletal: nl extremities to inspection Results Result Diagram: 05/27/17 1008 05/28/17 0513 Results 24 hrs Laboratory Tests Test 05/28/17 17:12 05/28/17 20:33 05/29/17 01:46 05/29/17 08:30 Bedside Glucose 229 H 239 H 182 257 H Test 05/29/17 12:39 Bedside Glucose 221 H Medications Medications Current Medications Diagnostic Test (Pha) (Accu-Chek) 1 ea 02 XX Last administered on 05/29/17 02: 04; Admin Dose 1 EA; Start 05/27/17 at 02:00 Insulin Glargine (Lantus) 11 unit DAILY@08 SC Last administered on 05/29/17 08 :50; Admin Dose 11 UNIT; Start 05/27/17 at 08:00 Miscellaneous Information 1 ea NOTE XX ; Start 05/26/17 at 19:00 Glucose (Glutose) 15 gm Q15M PRN PO DECREASED GLUCOSE; Start 05/26/17 at 19:00 Glucose (Glutose) 22.5 gm Q15M PRN PO DECREASED GLUCOSE; Start 05/26/17 at 19: 00 Dextrose (D50w Syringe) 25 ml Q15M PRN IV DECREASED GLUCOSE; Start 05/26/17 at 19:00 Dextrose (D50w Syringe) 50 ml Q15M PRN IV DECREASED GLUCOSE; Start 05/26/17 at 19:00 Glucagon (Glucagen) 1 mg Q15M PRN IM DECREASED GLUCOSE; Start 05/26/17 at 19:00 Glucose (Glutose) 15 gm Q15M PRN BUCCAL DECREASED GLUCOSE; Start 05/26/17 at 19 :00 Ondansetron HCl (Zofran Inj) 4 mg Q6H PRN IV NAUSEA AND/OR VOMITING; Start at 02:00 Amlodipine Besylate (Norvasc) 5 mg DAILY NGT Last administered on 05/29/17 08: 22; Admin Dose 5 MG; Start 05/27/17 at 14:30 Miscellaneous Information VOLUMEN (BARIUM SULFA... ONCE XX ; Start 05/27/17 at 23:00 Potassium Chloride/Dextrose/ Sod Cl (D5-1/2ns + KCl 20 Meq) 1,000 ml @ 100 mls/ hr Q10H IV Last administered on 05/29/17 10:59; Admin Dose 100 MLS/HR; Start 05/28/17 at 14:10 Morphine Sulfate (morphine) 2 mg Q4H PRN IV PAIN Last administered on 08:22; Admin Dose 2 MG; Start 05/28/17 at 14:14 Polyethylene Glycol (Miralax) 17 gm DAILY PO Last administered on 05/29/17 08: 22; Admin Dose 17 GM; Start 05/28/17 at 17:00 DAILY ALFORD May 29, 2017 14:42
--- NOTE | 2017-05-29 15:51 | PN ---
Date/Time of Note Date/Time of Note DATE: 05/29/17 TIME: 15:48 Assessment/Plan Lines/Catheters IV C[facility]ter Type (from [facility]): Peripheral IV Assessment/Plan Assessment/Plan [facility] Progress Note Date of Service: 05/29/17 Today's Impression & Plan: Overall stable with mass in head of pancreas, concerning for malignancy. Significantly elevated CA-19-9. Needs decompression, possible neoadjuvant therapy prior to Whipple procedure. I do not believe that there is a good role for percutaneous biopsy since the diagnosis is fairly clear and a negative biopsy would not change our management plans. There is also issues with complications from percutaneous biopsy including bleeding as well as potential seeding of the tumor. If tissue diagnosis is absolutely necessary, the patient could undergo endoscopic ultrasound which would also give us important information about anatomy. 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 The mass process appears to be abutting the curve of the main common hepatic artery and potentially could be involving this vessel. For this reason, I believe that the patient is borderline resectable at best and could benefit from neoadjuvant therapy. Scheduled for internal decompression which were planning on doing with metallic stent placement. Discussed case in detail with patient's family both in the room as well as out of the room (total of more than 30 minutes at bedside). Answered all questions. Also discussed with Dr. Macias. With above assessment, I've recommended the following for today: 1. ERCP and metallic stent placement (neelima-procedural antimicrobials and hydration) 2. Multidisciplinary tumor board presentation 3. Outpatient follow up to further discuss treatment options in 2-3 weeks, once Bili has decreased enough Nature of presenting problem: High complexity Thank you again for your great care of this very pleasant patient and wonderful family. If there are any questions, please feel free to call me at [phone]. Disclaimer: Inadvertent spelling or grammatical errors are likely due to EHR/ dictation software use and do not reflect on the overall quality of patient care. Updated clinical summary: A very-pleasant 56-year-old gentleman with comorbidities including DMII, previous ETOH abuse and h/o pancreatitis, admitted for jaundice and abdominal pain and 100 pound weight loss. Comorbidities: 1. DMII 2. Prior reported pancreatitis 3. ETOH Subjective: No major events or complaints; no major abd pain and under control with medications; no n/v/d; no sob or cp; + flatus; - BM; + activity Objective: Vitals: See below Exam: GENERAL: On exam, the patient was laying in bed and appeared to be comfortable and in no acute distress. ABDOMEN: Soft, nontender and nondistended. There are no peritoneal signs or guarding. SKIN: Skin appears to be jaundiced and feels warm to touch. NEUROLOGIC: Patient is awake, alert, and follows commands appropriately. Exam/Review of Systems Vital Signs Vitals Vital Signs Date Time Temp Pulse Resp B/P Pulse Ox O2 Delivery O2 Flow Rate FiO2 05/29/17 14:11 98.4 77 20 135/71 95 05/26/17 20:30 Room Air Intake and Output 05/28/17 05/28/17 05/29/17 15:00 23:00 07:00 Intake Total 300 ml 1080 ml 693 ml Balance 300 ml 1080 ml 693 ml Results Result Diagram: 05/27/17 1008 05/28/17 0513 RENETTA CHEEMA M.D. May 29, 2017 15:51
--- NOTE | 2017-05-29 18:47 | PN ---
Date/Time of Note Date/Time of Note DATE: 05/29/17 TIME: 18:45 Assessment/Plan VTE Prophylaxis VTE Prophylaxis Intervention: SCD's Lines/Catheters IV C[facility] Type ([facility] Peripheral IV Assessment/Plan Chief Complaint/Hosp Course 57-year-old male known to GI service from previous evaluation October of this year at which time the patient presented with an episode of pancreatitis likely related to alcohol. The patient claims abstinent since October, this is corroborated by his . Patient now presents to the hospital with new onset jaundice with minimal GI symptomatology consistent of mild epigastric discomfort and some nausea. Of note the patient has lost according to his approximately 100 pounds. Her luminary evaluation included a CT of the abdomen with and without contrast that showed a mass in the head of the pancreas and moderate dilatation of the biliary tree. The mass is highly suspicious for malignant neoplasm. In addition CA-19-9 is elevated over the thousand which is also consistent with a pancreatic malignancy. At the present time the patient scheduled for MRI MRCP tomorrow and I will add a CT-guided biopsy of the pancreas for tissue diagnosis, ultimately the patient will probably benefit from ERCP and stent placement to restore bile flow. Oncology consultation should also be obtained. The patient and his have been informed of the findings and the concerns regarding possibility of malignancy and her [place]. The patient also carries a diagnosis of diabetes mellitus. Problems: Assessment/Plan Assessment: * Pancreatic mass, highly suspect for malignant neoplasm * Elevated CA-19-9 * Obstructive jaundice, likely secondary to above * History of pancreatitis October 2016 * History of alcohol abuse, abstinent since October 2016 * Diabetes mellitus type 2 * Hypertension * Significant, unexplained weight loss Plan: * ERCP with covered metal stent tomorrow * E US with staging and guided biopsy to be arranged . Subjective 24 Hr Interval Summary Free Text/Dictation Course reviewed with nursing staff Patient appears comfortable Case discussed with Dr. Martinez We will plan ERCP with covered metal stent Outpatient EUS with staging and guided biopsy to be arranged Exam/Review of Systems Vital Signs Vitals Vital Signs Date Time Temp Pulse Resp B/P Pulse Ox O2 Delivery O2 Flow Rate FiO2 05/29/17 14:11 98.4 77 20 135/71 95 05/26/17 20:30 Room Air Intake and Output 05/28/17 05/28/17 05/29/17 15:00 23:00 07:00 Intake Total 300 ml 1080 ml 693 ml Balance 300 ml 1080 ml 693 ml Exam Constitutional: alert, oriented, well developed Psych: nl mood/affect, no complaints Head: atraumatic, normocephalic Eyes: EOMI, PERRL, nl conjunctiva, nl lids, nl sclera ENMT: nl external ears & nose, nl lips & teeth, nl nasal mucosa & septum Neck: non-tender, supple Respiratory: clear to auscultation, normal air movement Cardiovascular: nl pulses, regular rate and rhythm Gastrointestinal: bowel sounds, nl liver, spleen, non-tender, soft, No ascites, No distended, No hepatomegaly, No mass, No rebound or guarding Musculoskeletal: nl extremities to inspection, nl gait and stance Extremities: normal pulses Neurological: TOOL CRIB ATTENDANT II-XII intact, nl mental status, nl speech, nl strength Skin: nl turgor, No rash or lesions Lymph: nl lymph nodes Results Result Diagram: 05/27/17 1008 05/28/17 0513 Results 24 hrs Laboratory Tests Test 05/28/17 20:33 05/29/17 01:46 05/29/17 08:30 05/29/17 12:39 Bedside Glucose 239 H 182 257 H 221 H Test 05/29/17 17:42 Bedside Glucose 323 H Medications Medications Current Medications Diagnostic Test (Pha) (Accu-Chek) 1 ea 02 XX Last administered on 05/29/17t 02: 04; Admin Dose 1 EA; Start 05/27/17 at 02:00 Miscellaneous Information 1 ea NOTE XX ; Start 05/26/17 at 19:00 Glucose (Glutose) 15 gm Q15M PRN PO DECREASED GLUCOSE; Start 05/26/17 at 19:00 Glucose (Glutose) 22.5 gm Q15M PRN PO DECREASED GLUCOSE; Start 05/26/17 at 19: 00 Dextrose (D50w Syringe) 25 ml Q15M PRN IV DECREASED GLUCOSE; Start 05/26/17 at 19:00 Dextrose (D50w Syringe) 50 ml Q15M PRN IV DECREASED GLUCOSE; Start 05/26/17 at 19:00 Glucagon (Glucagen) 1 mg Q15M PRN IM DECREASED GLUCOSE; Start 05/26/17 at 19:00 Glucose (Glutose) 15 gm Q15M PRN BUCCAL DECREASED GLUCOSE; Start 05/26/17 at 19 :00 Ondansetron HCl (Zofran Inj) 4 mg Q6H PRN IV NAUSEA AND/OR VOMITING; Start at 02:00 Amlodipine Besylate (Norvasc) 5 mg DAILY NGT Last administered on 05/29/17 08: 22; Admin Dose 5 MG; Start 05/27/17 at 14:30 Miscellaneous Information VOLUMEN (BARIUM SULFA... ONCE XX ; Start 05/27/17 at 23:00 Potassium Chloride/Dextrose/ Sod Cl (D5-1/2ns + KCl 20 Meq) 1,000 ml @ 100 mls/ hr Q10H IV Last administered on 05/29/17 10:59; Admin Dose 100 MLS/HR; Start 05/28/17 at 14:10 Morphine Sulfate (morphine) 2 mg Q4H PRN IV PAIN Last administered on 08:22; Admin Dose 2 MG; Start 05/28/17 at 14:14 Polyethylene Glycol (Miralax) 17 gm DAILY PO Last administered on 05/29/17 08: 22; Admin Dose 17 GM; Start 05/28/17 at 17:00 Insulin Glargine (Lantus) 14 unit DAILY@08 SC ; Start 05/30/17 at 08:00 JOSÉ MIGUEL GREGORY MD May 29, 2017 18:47
[2017-05-29 20:00] VITALS: BP 162/81; PULSE 85; RESP 18
[2017-05-29 21:51] VITALS: BP 139/82; PULSE 92
[2017-05-30] VITALS (16 sets, daily range): BP systolic 110–145; BP diastolic 71–87; PULSE 75–106; RESP 16–23
[2017-05-30] MEDS: ACCU-CHEK XX SCH (01:39)
[2017-05-30] MEDS: D5W-0.45 NACL + KCL 20 MEQ 1,000 ML IV SCH ×3 (03:38→14:33)
[2017-05-30] MEDS: morphine 4 MG/ML VIAL IV PRN (05:51)
[2017-05-30 06:32] LABS: ALBUMIN/GLOBULIN RATIO 1.25; BILIRUBIN,DIRECT 12.5 mg/dl (0.00-0.20); BILIRUBIN,INDIRECT 2.6 mg/dl (0-1.1); BILIRUBIN,TOTAL 15.1 mg/dl (0.2-1.3); CALCIUM 9.1 mg/dl (8.4-10.2); CREATININE 0.53 mg/dl (0.61-1.24); POTASSIUM 4.5 mmol/L (3.5-5.1); TOTAL PROTEIN 7.2 g/dl (6.1-8.1)
[2017-05-30 06:35] LABS: MAGNESIUM 1.9 mg/dl (1.7-2.5)
[2017-05-30] MEDS ORDERED: EPHEDrine SULFATE 50 MG/5 ML SYG ONE (07:00)
[2017-05-30] MEDS ORDERED: INDOMETHACIN 50 MG SUPP PR SCH (07:00)
[2017-05-30] MEDS ORDERED: CEFAZOLIN 1 GM INJ ONE (07:00)
[2017-05-30 07:31] LABS: ABNORMAL IP MESSAGE 1; BASOPHILS % 0.5 % (0.0-2.0); EOSINOPHILS # 0.1 10^3/ul (0.0-0.5); HEMOGLOBIN 12.1 g/dl (14.0-18.0); LYMPHOCYTES # 1.5 10^3/ul (0.8-2.9); LYMPHOCYTES % 23.1 % (15.0-51.0); MEAN CORPUSCULAR HEMOGLOBIN 29.1 pg (29.0-33.0); MEAN CORPUSCULAR VOLUME 76.9 fl (82.0-101.0); MONOCYTE # 0.5 10^3/ul (0.3-0.9); MONOCYTES % 8.4 % (0.0-11.0); NEUTROPHIL # 4.3 10^3/ul (1.6-7.5); NEUTROPHILS % 65.8 % (39.0-77.0); PLATELET COUNT 114 10^3/UL (140-415); POSITIVE DIFF @See below; RED BLOOD COUNT 4.16 10^6/ul (4.70-6.10); RED CELL DISTRIBUTION WIDTH 16.2 % (11.5-14.5); WHITE BLOOD COUNT 6.5 10^3/ul (4.8-10.8)
[2017-05-30 07:32] LABS: MEAN CORPUSCULAR HGB CONC 37.8 g/dl (32.0-37.0)
[2017-05-30] MEDS: INSULIN ASPART [NOVOLOG] 3 ML PEN SC SCH ×7 (08:15→20:17)
[2017-05-30] MEDS: AMLODIPINE 5 MG TAB NGT SCH (08:57)
[2017-05-30] MEDS: INSULIN GLARGINE [LANtus] 3 ML PEN SC SCH (09:00)
[2017-05-30] MEDS: POLYETHYLENE GLYCOL 17 GM PACKET PO SCH (09:00)
[2017-05-30] MEDS ORDERED: LORAZEPAM 2 MG INJ IV ONE (14:40)
--- NOTE | 2017-05-30 15:40 | RADRPT ---
PROCEDURE: MRI MRCP. CLINICAL INDICATION: Hyperbilirubinemia and jaundice. Pancreatic mass. TECHNIQUE: MRCP was performed without contrast. 3-D/multiplanar reformations and coronal rotating M IP images of the biliary tree were performed by the technologist and at an independent workstation. COMPARISON: CT dated 05/28/2017. MRI dated 11/20/2016. FINDINGS: There is moderate to severe intra and extrahepatic biliary ductal dilatation with a trans ition point at the mid common bile duct, likely related to a malignant stricture from an infiltrativ e mass centered in the pancreatic head. The distal common bile duct below the stricture is nondilat ed. There is decreased T2 signal intensity within the common bile duct, possibly related to sludge. There is scattered areas of debris within the intrahepatic ducts, most pronounced anteriorly. There is dilatation of the pancreatic duct downstream from the pancreatic head mass measuring up to 5 mm in diameter and there are numerous dilated side branches along the course of the duct. There is also atrophy of the pancreas distal to the mass. There is nonspecific gallbladder wall thickening. No gallstones are identified. IMPRESSION: 1. Moderate to severe diffuse intra and extrahepatic biliary ductal dilatation with a transition po int at the mid common bile duct, likely related to a malignant stricture from an infiltrative mass c entered in the pancreatic head. ERCP with brushings is recommended for further evaluation. 2. Decreased T2 signal intensity in the common bile duct and scattered areas of debris in the intra hepatic ducts, most pronounced anteriorly, possibly related to sludge. 3. Poor visualization of the patient's known pancreatic head mass. Atrophy of the pancreas distal to the mass and downstream pancreatic ductal dilatation measuring up to 5 mm in diameter. 4. Nonspecific gallbladder wall thickening. RPTAT: HLBP .Jose Luis Baumann MD, MD Date Time Electronically viewed and signed by .Jose Luis Baumann MD, MD on 05/30/2017 15:39 .P/
--- NOTE | 2017-05-30 15:50 | PN ---
Date/Time of Note Date/Time of Note DATE: 05/30/17 TIME: 08:48 Assessment/Plan Lines/Catheters IV C[facility] Type ([facility]): Peripheral IV Assessment/Plan Assessment/Plan [facility] Progress Note Date of Service: 05/30/17 Today's Impression & Plan: Overall stable with mass in head of pancreas, concerning for malignancy. No new recommendations from yesterday. I canceled percutaneous CT-guided biopsy of the head of the pancreas per discussions yesterday. Awaiting schedule MRI and ERCP with metallic stenting. Discussed case with patient and answered all questions. With above assessment, I've recommended the following for today: 1. ERCP and metallic stent placement (neelima-procedural antimicrobials and hydration) 2. Multidisciplinary tumor board presentation 3. Outpatient follow up to further discuss treatment options in 2-3 weeks, once Bili has decreased enough Nature of presenting problem: High complexity Thank you again for your great care of this very pleasant patient and wonderful family. If there are any questions, please feel free to call me at [phone]. Disclaimer: Inadvertent spelling or grammatical errors are likely due to EHR/ dictation software use and do not reflect on the overall quality of patient care. Updated clinical summary: A very-pleasant 56-year-old gentleman with comorbidities including DMII, previous ETOH abuse and h/o pancreatitis, admitted for jaundice and abdominal pain and 100 pound weight loss. Comorbidities: 1. DMII 2. Prior reported pancreatitis 3. ETOH Subjective: No major events or complaints; no major abd pain and under control with medications; no n/v/d; no sob or cp; + flatus; - BM; + activity Objective: Vitals: See below Exam: GENERAL: On exam, the patient was laying in bed and appeared to be comfortable and in no acute distress. ABDOMEN: Soft, nontender and nondistended. There are no peritoneal signs or guarding. SKIN: Skin appears to be jaundiced and feels warm to touch. NEUROLOGIC: Patient is awake, alert, and follows commands appropriately. Exam/Review of Systems Vital Signs Vitals Vital Signs Date Time Temp Pulse Resp B/P Pulse Ox O2 Delivery O2 Flow Rate FiO2 05/30/17 14:11 97.9 70 18 137/78 98 05/30/17 12:45 Room Air Intake and Output 7/05/29/17 05/30/17 15:00 23:00 07:00 Intake Total 887 ml 480 ml 150 ml Output Total 0 ml Balance 887 ml 480 ml 150 ml Results Result Diagram: 05/30/17 0519 05/30/17 0519 RENETTA CHEEMA M.D. May 30, 2017 15:50
--- NOTE | 2017-05-30 16:13 | PN ---
Date/Time of Note Date/Time of Note DATE: 05/30/17 TIME: 16:08 Assessment/Plan VTE Prophylaxis VTE Prophylaxis Intervention: ambulation Lines/Catheters IV Catheter Type (from Nrs): Peripheral IV Assessment/Plan Chief Complaint/Hosp Course 56 yo male with h/o DMII, etoh induced pancreatitis presenting with jaundice and RUQ pain 1. Jaundice with right upper quadrant pain secondary to pancreatic head mass -MRCP shows moderate to severe diffuse intra and extrahepatic biliary ductal dilatation due to a infiltrative mass centered in the pancreatic head -Plan is for ERC today with biliary stent placement -GI/surgery both following -Patient will need outpatient EUS 2. DMII: - basal/bolus insulin 3. Hypertension: - Amlodipine 5 4. Alcohol use disorder is resolved, sober for 6 months Prophylaxis: Ambulation Problems: Subjective 24 Hr Interval Summary Constitutional: no complaints Exam/Review of Systems Vital Signs Vitals Vital Signs Date Time Temp Pulse Resp B/P Pulse Ox O2 Delivery O2 Flow Rate FiO2 05/30/17 14:11 97.9 70 18 137/78 98 05/30/17 12:45 Room Air Intake and Output 05/29/17 05/29/17 05/30/17 15:00 23:00 07:00 Intake Total 887 ml 480 ml 150 ml Output Total 0 ml Balance 887 ml 480 ml 150 ml Exam Constitutional: alert Respiratory: clear to auscultation Cardiovascular: regular rate and rhythm Gastrointestinal: soft, No distended Musculoskeletal: nl extremities to inspection Results Result Diagram: 05/30/17 0519 05/30/17 0519 Results 24 hrs Laboratory Tests Test 05/29/17 17:42 05/29/17 21:01 05/30/17 05:19 05/30/17 08:22 Bedside Glucose 323 H 114 247 H White Blood Count 6.5 Red Blood Count 4.16 L Hemoglobin 12.1 L Hematocrit 32.0 L Mean Corpuscular Volume 76.9 L Mean Corpuscular Hemoglobin 29.1 Mean Corpuscular Hemoglobin Concent 37.8 H Red Cell Distribution Width 16.2 H Platelet Count 114 L Mean Platelet Volume Neutrophils % 65.8 Lymphocytes % 23.1 Monocytes % 8.4 Eosinophils % 2.0 Basophils % 0.5 Nucleated Red Blood Cells % 0.0 Neutrophils # 4.3 Lymphocytes # 1.5 Monocytes # 0.5 Eosinophils # 0.1 Basophils # 0.0 Nucleated Red Blood Cells # 0.0 Sodium Level 140 Potassium Level 4.5 Chloride Level 101 Carbon Dioxide Level 25 Anion Gap 19 H Blood Urea Nitrogen 9 Creatinine 0.53 L Glucose Level 253 H Hemoglobin A1c 10.2 H Calcium Level 9.1 Phosphorus Level 4.0 Magnesium Level 1.9 Total Bilirubin 15.1 H Direct Bilirubin 12.50 H Indirect Bilirubin 2.6 H Aspartate Amino Transf (AST/SGOT) 334 H Alanine Aminotransferase (ALT/SGPT) 565 H Alkaline Phosphatase 765 H Total Protein 7.2 Albumin 4.0 Globulin 3.20 Albumin/Globulin Ratio 1.25 Test 05/30/17 12:27 Bedside Glucose 202 Medications Medications Current Medications Diagnostic Test (Pha) (Accu-Chek) 1 ea 02 XX Last administered on 05/29/17 02: 04; Admin Dose 1 EA; Start 05/27/17 at 02:00 Miscellaneous Information 1 ea NOTE XX ; Start 05/26/17 at 19:00 Glucose (Glutose) 15 gm Q15M PRN PO DECREASED GLUCOSE; Start 05/26/17 at 19:00 Glucose (Glutose) 22.5 gm Q15M PRN PO DECREASED GLUCOSE; Start 05/26/17 at 19: 00 Dextrose (D50w Syringe) 25 ml Q15M PRN IV DECREASED GLUCOSE; Start 05/26/17 at 19:00 Dextrose (D50w Syringe) 50 ml Q15M PRN IV DECREASED GLUCOSE; Start 05/26/17 at 19:00 Glucagon (Glucagen) 1 mg Q15M PRN IM DECREASED GLUCOSE; Start 05/26/17 at 19:00 Glucose (Glutose) 15 gm Q15M PRN BUCCAL DECREASED GLUCOSE; Start 05/26/17 at 19 :00 Ondansetron HCl (Zofran Inj) 4 mg Q6H PRN IV NAUSEA AND/OR VOMITING; Start at 02:00 Amlodipine Besylate (Norvasc) 5 mg DAILY NGT Last administered on 05/30/17 08: 57; Admin Dose 5 MG; Start 05/27/17 at 14:30 Miscellaneous Information VOLUMEN (BARIUM SULFA... ONCE XX ; Start 05/27/17 at 23:00 Potassium Chloride/Dextrose/ Sod Cl (D5-1/2ns + KCl 20 Meq) 1,000 ml @ 100 mls/ hr Q10H IV Last administered on 05/30/17 14:33; Admin Dose 100 MLS/HR; Start at 14:10 Morphine Sulfate (morphine) 2 mg Q4H PRN IV PAIN Last administered on 05/30/17 05:51; Admin Dose 2 MG; Start 05/28/17 at 14:14 Polyethylene Glycol (Miralax) 17 gm DAILY PO Last administered on 05/29/17 08: 22; Admin Dose 17 GM; Start 05/28/17 at 17:00 Insulin Glargine (Lantus) 14 unit DAILY@08 SC Last administered on 05/30/17 09: 00; Admin Dose 14 UNIT; Start 05/30/17 at 08:00 Indomethacin (Indocin Supp) 100 mg ONCE HI ; Start 05/30/17 at 07:00; Stop at 23:59 DAILY ALFORD May 30, 2017 16:13
[2017-05-30] MEDS ORDERED: IOHEXOL 300MG/ML 30 ML BTL ONE (17:13)
[2017-05-30] MEDS ORDERED: LIDOCAINE 2% (SDV) 5 ML INJ ONE (18:25)
[2017-05-30] MEDS ORDERED: MIDAZOLAM 1 MG/ML 2 ML INJ ONE (18:25)
[2017-05-30] MEDS ORDERED: PROPOFOL 20 ML ONE (18:25)
[2017-05-30] MEDS ORDERED: FENTAnyl 50 MCG/ML VIAL ONE (18:25)
[2017-05-30] MEDS ORDERED: SUCCINYLCHOLINE CHLORIDE 100 MG/5 ML SYG IV ONE (18:25)
[2017-05-30] MEDS ORDERED: HYDROmorphONE (0.2 MG/ML) 10ML SYG IV PRN (18:30)
[2017-05-30] MEDS ORDERED: hydrALAzine 20 MG INJ IV PRN (18:30)
[2017-05-30] MEDS ORDERED: MEPERIDINE 25 MG INJ IV PRN (18:30)
[2017-05-30] MEDS ORDERED: PROCHLORPERAZINE 10 MG INJ IV PRN (18:30)
[2017-05-30] MEDS ORDERED: DIPHENHYDRAMINE 50 MG INJ IV PRN (18:30)
[2017-05-30] MEDS ORDERED: EPHEDrine SULFATE 50 MG/5 ML SYG IV PRN (18:30)
[2017-05-30] MEDS ORDERED: ONDANSETRON 4 MG INJ IV PRN (18:30)
[2017-05-30] MEDS ORDERED: LABETALOL HCL 20MG INJ IV PRN (18:30)
[2017-05-30] MEDS ORDERED: FENTAnyl 50 MCG/ML VIAL IV PRN (18:30)
[2017-05-30] MEDS ORDERED: PHENYLephrine (100 MCG/ML) 5ML SYG ONE (18:38)
[2017-05-30] MEDS ORDERED: METOCLOPRAMIDE 10 MG INJ ONE (18:45)
[2017-05-30] MEDS ORDERED: ONDANSETRON 4 MG INJ ONE (18:45)
--- NOTE | 2017-05-30 19:15 | OPR ---
Date/Time of Note Date/Time of Note DATE: 05/30/17 TIME: 19:05 Operative Report Preoperative Diagnosis * Obstructive jaundice Postoperative Diagnosis Impression: * High grade narrowing distal CBD * Cytology brushings obtained * Post ERS * Post covered wallstent [id number] Plan: * Observation * Review cytology . Operation/Procedure Performed * ERCP + ERS + WALLSTENT PLACEMENT Surgeon: JOSÉ MIGUEL GREGORY MD Anesthesia: general Estimated Blood Loss: none Specimens * Biliary cytology (brushed) Grafts/Implants * 10 x 60 mm covered wallstent Complications: None JOSÉ MIGUEL GREGORY MD May 30, 2017 19:15
--- NOTE | 2017-05-30 22:58 | RADRPT ---
PROCEDURE: Intraoperative imaging for ERCP with fluoroscopy. CLINICAL INDICATION: Right upper quadrant pain. Intraoperative. TECHNIQUE: 4 images of the right upper quadrant of the abdomen were obtained in the operating room with an image intensifier. No radiologist was in attendance. 65.9 second of fluoroscopy time was used. COMPARISON: MRCP done earlier the same day. FINDINGS: Images demonstrate the endoscope in position. Contrast was injected into the common bile duct. The common bile duct and intrahepatic bile ducts are dilated. There is a stricture of the distal commo n bile duct. A metallic stent was placed across the stricture. IMPRESSION: 1. ERCP as described above. RPTAT: QQ .Rk Delatorre MD, MD Date Time Electronically viewed and signed by .Rk Delatorre MD, on 05/30/2017 22:58 .R/
[2017-05-31] MEDS: ACCU-CHEK XX SCH (01:55)
[2017-05-31] MEDS: D5W-0.45 NACL + KCL 20 MEQ 1,000 ML IV SCH (02:10)
[2017-05-31 02:48] VITALS: BP 148/73; RESP 20
[2017-05-31 06:02] LABS: ABNORMAL IP MESSAGE 1; BASOPHILS % 0.4 % (0.0-2.0); EOSINOPHILS # 0.1 10^3/ul (0.0-0.5); EOSINOPHILS % 1.6 % (0.0-7.0); HEMATOCRIT 33.4 % (42.0-52.0); HEMOGLOBIN 12.5 g/dl (14.0-18.0); LYMPHOCYTES # 1.3 10^3/ul (0.8-2.9); LYMPHOCYTES % 17.7 % (15.0-51.0); MEAN CORPUSCULAR HEMOGLOBIN 28.6 pg (29.0-33.0); MEAN CORPUSCULAR HGB CONC 37.4 g/dl (32.0-37.0); MEAN CORPUSCULAR VOLUME 76.4 fl (82.0-101.0); MONOCYTE # 0.6 10^3/ul (0.3-0.9); MONOCYTES % 8.4 % (0.0-11.0); NEUTROPHIL # 5.2 10^3/ul (1.6-7.5); NEUTROPHILS % 71.5 % (39.0-77.0); PLATELET COUNT 134 10^3/UL (140-415); POSITIVE DIFF @See below; RED BLOOD COUNT 4.37 10^6/ul (4.70-6.10); RED CELL DISTRIBUTION WIDTH 17.3 % (11.5-14.5); WHITE BLOOD COUNT 7.3 10^3/ul (4.8-10.8)
[2017-05-31] MEDS: morphine 4 MG/ML VIAL IV PRN ×2 (06:07→10:39)
--- NOTE | 2017-05-31 06:28 | GILP ---
DATE OF PROCEDURE: 05/31/2017 PROCEDURE: Endoscopic retrograde cholangiopancreatography with endoscopic retrograde sphincterotomy, plus cytology brushing of the biliary tree, plus covered Wallstent placement. HISTORY AND INDICATIONS: PREMEDICATION: General anesthesia by anesthesiologist. INSTRUMENT USED: Olympus side-viewing endoscope. TECHNIQUE: After informed consent, with the patient/relatives understanding the procedure, its indications, potential risks and complications, including but not limited to: allergic reaction, bleeding, perforation or infection, and after all pertinent questions were answered to the patients satisfaction, the patient/relatives signed witnessed informed consent. Following this, premedication was administered slowly IV push under careful cardiovascular and respiratory monitoring with pulse oximetry, automatic blood pressure and compliance monitor. Once the sedative effect was achieved the patient was place in the prone position in the radiology special procedures suite; the side viewing panendoscope was introduced and advanced under visual control. Careful examination of the upper gastrointestinal tract, both on insertion as well as withdrawal of the instrument disclosed the following findings: ESOPHAGUS: The mucosa of the entire esophagus appears within normal limits. There is no evidence of esophagitis, varices, neoplasm or stricture. No Hiatal Hernia identified. STOMACH: Upon entrance to the stomach air was insufflated, the gastric frey distended normally. The mucosa of the fundus, body and antrum of the stomach was carefully examined both head-on and on retroflexion, and shows no abnormalities. There is no evidence of gastritis, ulcers or neoplasm. PYLORUS: The pylorus appears patent and within normal limits, with no evidence of gastric outlet obstruction. DUODENUM: The duodenal mucosa was carefully examined in the duodenal bulb as well as the second portion of the duodenum and appears unremarkable with no evidence of duodenitis, ulcer or neoplasm. AMPULLA OF VATER: The ampulla of Vater was identified and carefully examined appearing within normal limits. CANNULATION: At this point cannulation was accomplished without difficulty with the following fluoroscopic findings: Passing the biliary tree there is an area of high-grade narrowing approximately 2 cm from the ampullary orifice. We were able to advance a guidewire without difficulty and obtain cytologies of the area. Following this, a 10 x 60 mm fully covered Wallstent was deployed without difficulty across the area of narrowing with excellent drainage. The instrument was withdrawn. PANCREATOGRAM: CHOLANGIOGRAM: The instrument was then withdrawn, the patient tolerated the procedure well and was transfer out of the endoscopy suite awake, and in good condition to continue recovery under observation. IMPRESSION: 1. High-grade narrowing in the distal common bile duct. Cytology brushings obtained. 2. Post endoscopic retrograde sphincterotomy and post placement of a 10 x 60 mm fully covered Wallstent. RECOMMENDATIONS: The patient will be observed and further recommendations will depend on his clinical course. Dictated By: Felicia Macias MD /[email or web address]/neida /Document#: [id number] CC: Felicia Macias MD;*EndCC*
[2017-05-31 06:53] LABS: CALCIUM 9.3 mg/dl (8.4-10.2); CREATININE 0.67 mg/dl (0.61-1.24); POTASSIUM 4.2 mmol/L (3.5-5.1)
[2017-05-31 08:26] VITALS: BP 184/84; RESP 18
[2017-05-31] MEDS: POLYETHYLENE GLYCOL 17 GM PACKET PO SCH (08:31)
[2017-05-31] MEDS: INSULIN ASPART [NOVOLOG] 3 ML PEN SC SCH ×6 (08:36→17:41)
[2017-05-31] MEDS: INSULIN GLARGINE [LANtus] 3 ML PEN SC SCH (08:37)
[2017-05-31] MEDS: AMLODIPINE 5 MG TAB NGT SCH (08:40)
[2017-05-31 10:34] LABS: ALBUMIN 4.1 g/dl (3.3-4.9); BILIRUBIN,DIRECT 8.1 mg/dl (0.00-0.20); BILIRUBIN,INDIRECT 3.2 mg/dl (0-1.1); BILIRUBIN,TOTAL 11.3 mg/dl (0.2-1.3); TOTAL PROTEIN 7.7 g/dl (6.1-8.1)
[2017-05-31 14:47] VITALS: BP 152/83; RESP 18
[2017-05-31] MEDS ORDERED: AMLO-145 PO (14:56)
[2017-05-31] MEDS ORDERED: HYDR-906 PO (14:56)
[2017-05-31] MEDS ORDERED: GLIP5TAB13 PO (14:56)
--- NOTE | 2017-05-31 14:59 | PDOCDIS ---
Discharge Instructions CONDITION Patient Condition: Good HOME CARE INSTRUCTIONS: Special Diet: [id number] ACTIVITY: Activity Restrictions: No Restrictions FOLLOW UP/APPOINTMENTS Follow-up Plan FOLLOW UP WITH YOUR PRIMARY CARE PHYSICIAN IN 1-2 WEEKS, FOLLOW UP WITH DR RENETTA CHEEMA IN 2-3 WEEKS DAILY ALFORD May 31, 2017 14:59
--- NOTE | 2017-05-31 15:05 | DS ---
Date/Time of Note Date/Time of Note DATE: 05/31/17 TIME: 14:59 Discharge Summary Admission/Discharge Info Admit Date/Time May 26, 2017 at 17:22 Discharge Date/Time May 31, 2017 Discharge Diagnosis 1. Jaundice with right upper quadrant pain secondary to pancreatic head mass -MRCP shows moderate to severe diffuse intra and extrahepatic biliary ductal dilatation due to a infiltrative mass centered in the pancreatic head -Patient is status post ERCP with stent placement and downtrending bilirubin -Patient to follow-up with Dr. Martinez and will need outpatient EUS 2. DMII: -Patient continue p.o. diabetic medications and will add glipizide, patient will need improved lifestyle and diet 3. Hypertension: -DC with amlodipine 5 4. Alcohol use disorder is resolved, sober for 6 months Hospital Course Patient is a 56 yo male wtih h/o DMII, previous etoh induced pancreatitis presenting with RUQ pain and jaundice. Patient had an MRCP that showed moderate to severe diffuse intra and extrahepatic biliary ductal dilatation due to a infiltrative mass centered in the pancreatic head. The patient also had a right upper quadrant ultrasound that showed a pancreatic head mass and common bile duct dilation. Patient was seen by both hepatobiliary surgery and GI. Patient had an ERCP with stent placement and bilirubin trended down the following day. Patient was felt to be stable for DC per surgery with plans for outpatient EUS. On day of discharge patient vitals, labs and physical exam stable he had no acute complaints and questions were answered. Home Meds Active Scripts Hydrocodone/Acetaminophen ([place] 5-325 Tablet) 1 Each Tablet, 1 EACH PO Q4 for PAIN, #40 TAB Prov:DAILY ALFORD 05/31/17 Glipizide* (Glipizide*) 5 Mg Tablet, 5 MG PO AC BREAKFAST, #60 TAB Prov:DAILY ALFORD 05/31/17 Amlodipine Besylate* (Amlodipine Besylate*) 5 Mg Tablet, 5 MG PO DAILY, #60 TAB Prov:DAILY ALFORD 05/31/17 Reported Medications Sitagliptin* (Januvia*) 100 Mg Tablet, 100 MG PO DAILY, #30 TAB 05/26/17 Metformin Hcl* (Metformin Hcl*) 1,000 Mg Tablet, 1000 MG PO WITH BREAKFAST DINNE , #60 TAB 05/26/17 Discontinued Scripts Polyethylene Glycol* (Miralax*) 17 Gm Powd.pack, 17 GM PO DAILY, #7 Prov:ABEL MARIE PA-C 05/24/17 Magnesium Citrate* (Magnesium Citrate*) 296 Ml Solution, 296 ML PO ONCE, #1 BOTTLE Prov:ABEL MARIE PA-C 05/23/17 Metformin Hcl* (Metformin Hcl*) 500 Mg Tablet, 500 MG PO WITH BREAKFAST DINNE, # 60 TAB Prov:PEGGY DOBSON 11/23/16 Follow-up Plan Follow-up with PCP 1-[address] Martinez in 2-3 weeks Primary Care Provider Care Physician No Primary Time spent on discharge: > 30 minutes DAILY ALFORD May 31, 2017 15:05
--- NOTE | 2017-05-31 16:42 | PN ---
Date/Time of Note Date/Time of Note DATE: 05/31/17 TIME: 16:38 Assessment/Plan VTE Prophylaxis VTE Prophylaxis Intervention: ambulation Lines/Catheters IV [facility]from [facility]): Saline Lock Assessment/Plan Assessment/Plan Assessment: * Pancreatic mass, highly suspect for malignant neoplasm * Elevated CA-19-9 * Obstructive jaundice, likely secondary to above ERCP and stenting * History of pancreatitis October 2016 * History of alcohol abuse, abstinent since October 2016 * Diabetes mellitus type 2 * Hypertension * Significant, unexplained weight loss Plan * Continue present medications * case discussed with DR Macias * further orders will depend on clinical course Subjective 24 Hr Interval Summary Free Text/Dictation * Course reviewed with RN * No untoward events overnight * ERCP 1. High-grade narrowing in the distal common bile duct. Cytology brushings obtained. . Post endoscopic retrograde sphincterotomy and post placement of a 10 x 60 mm fully covered Wallstent. Exam/Review of Systems Vital Signs Vitals Vital Signs Date Time Temp Pulse Resp B/P Pulse Ox O2 Delivery O2 Flow Rate FiO2 05/31/17 14:47 97.7 83 18 152/83 99 05/30/17 19:51 Room Air 05/30/17 19:20 8.0 Intake and Output 05/30/17 05/30/17 05/31/17 15:00 23:00 07:00 Intake Total 850 ml 50 ml Balance 850 ml 50 ml Exam Constitutional: alert, oriented Neck: non-tender, supple Respiratory: clear to auscultation, normal air movement Cardiovascular: nl pulses, regular rate and rhythm Gastrointestinal: non-tender, soft Musculoskeletal: nl extremities to inspection, nl gait and stance Extremities: normal pulses Neurological: nl mental status, nl speech Results Result Diagram: 05/31/17 0520 05/31/17 0520 Results 24 hrs Laboratory Tests Test 05/30/17 18:15 05/30/17 20:16 05/31/17 05:20 05/31/17 08:16 Bedside Glucose 125 155 268 H White Blood Count 7.3 Red Blood Count 4.37 L Hemoglobin 12.5 L Hematocrit 33.4 L Mean Corpuscular Volume 76.4 L Mean Corpuscular Hemoglobin 28.6 L Mean Corpuscular Hemoglobin Concent 37.4 H Red Cell Distribution Width 17.3 H Platelet Count 134 L Mean Platelet Volume Neutrophils % 71.5 Lymphocytes % 17.7 Monocytes % 8.4 Eosinophils % 1.6 Basophils % 0.4 Nucleated Red Blood Cells % 0.0 Neutrophils # 5.2 Lymphocytes # 1.3 Monocytes # 0.6 Eosinophils # 0.1 Basophils # 0.0 Nucleated Red Blood Cells # 0.0 Sodium Level 141 Potassium Level 4.2 Chloride Level 97 Carbon Dioxide Level 27 Anion Gap 21 H Blood Urea Nitrogen 12 Creatinine 0.67 Glucose Level 257 H Calcium Level 9.3 Total Bilirubin 11.3 H Direct Bilirubin 8.10 #H Indirect Bilirubin 3.2 H Aspartate Amino Transf (AST/SGOT) 223 H Alanine Aminotransferase (ALT/SGPT) 496 H Alkaline Phosphatase 778 H Total Protein 7.7 Albumin 4.1 Test 05/31/17 11:56 Bedside Glucose 190 Medications Medications Current Medications Diagnostic Test (Pha) (Accu-Chek) 1 ea 02 XX Last administered on 05/29/17 02: 04; Admin Dose 1 EA; Start 05/27/17 at 02:00 Miscellaneous Information 1 ea NOTE XX ; Start 05/26/17 at 19:00 Glucose (Glutose) 15 gm Q15M PRN PO DECREASED GLUCOSE; Start 05/26/17 at 19:00 Glucose (Glutose) 22.5 gm Q15M PRN PO DECREASED GLUCOSE; Start 05/26/17 at 19: 00 Dextrose (D50w Syringe) 25 ml Q15M PRN IV DECREASED GLUCOSE; Start 05/26/17 at 19:00 Dextrose (D50w Syringe) 50 ml Q15M PRN IV DECREASED GLUCOSE; Start 05/26/17 at 19:00 Glucagon (Glucagen) 1 mg Q15M PRN IM DECREASED GLUCOSE; Start 05/26/17 at 19:00 Glucose (Glutose) 15 gm Q15M PRN BUCCAL DECREASED GLUCOSE; Start 05/26/17 at 19 :00 Ondansetron HCl (Zofran Inj) 4 mg Q6H PRN IV NAUSEA AND/OR VOMITING; Start at 02:00 Amlodipine Besylate (Norvasc) 5 mg DAILY NGT Last administered on 05/31/17 08: 40; Admin Dose 5 MG; Start 05/27/17 at 14:30 Miscellaneous Information (* Miscellaneous Pharmacy Order) VOLUMEN (BARIUM SULFA... ONCE XX ; Start 7/29/17 at 23:00 Morphine Sulfate (morphine) 2 mg Q4H PRN IV PAIN Last administered on 05/31/17 10:39; Admin Dose 2 MG; Start 05/28/17 at 14:14 Polyethylene Glycol (Miralax) 17 gm DAILY PO Last administered on 05/31/17 08: 31; Admin Dose 17 GM; Start 05/28/17 at 17:00 Insulin Glargine (Lantus) 14 unit DAILY@08 SC Last administered on 05/31/17 08: 37; Admin Dose 14 UNIT; Start 05/30/17 at 08:00 SAGE SERNA NP May 31, 2017 16:42
--- NOTE | 2017-05-31 21:39 | PN ---
Date/Time of Note Date/Time of Note DATE: 05/31/17 TIME: 21:38 Assessment/Plan Lines/Catheters IV [facility] (from [facility] Saline Lock Assessment/Plan Assessment/Plan [facility] Progress Note Date of Service: 05/31/17 Today's Impression & Plan: Overall stable with mass in head of pancreas, concerning for malignancy. Improved after ERCP with lower T.Bili. Will need a few weeks prior to further staging and likely need for neoadjuvant therapy (chemo +/- radiation) with restaging prior to possible attempt at [place]. Discussed case with patient and family and answered all questions. With above assessment, I've recommended the following for today: 1. Ok to d/c 2. Multidisciplinary tumor board presentation 3. Outpatient follow up to further discuss treatment options in 2-3 weeks, once Bili has decreased enough Nature of presenting problem: High complexity Thank you again for your great care of this very pleasant patient and wonderful family. If there are any questions, please feel free to call me at [phone]. Disclaimer: Inadvertent spelling or grammatical errors are likely due to EHR/ dictation software use and do not reflect on the overall quality of patient care. Updated clinical summary: A very-pleasant 56-year-old gentleman with comorbidities including DMII, previous ETOH abuse and h/o pancreatitis, admitted for jaundice and abdominal pain and 100 pound weight loss. Comorbidities: 1. DMII 2. Prior reported pancreatitis 3. ETOH Subjective: No major events or complaints; no major abd pain and under control with medications; no n/v/d; no sob or cp; + flatus; - BM; + activity Objective: Vitals: See below Exam: GENERAL: On exam, the patient was sitting up in his bed and appeared to be comfortable and in no acute distress. ABDOMEN: Soft, nontender and nondistended. There are no peritoneal signs or guarding. SKIN: Skin appears to be jaundiced and feels warm to touch. NEUROLOGIC: Patient is awake, alert, and follows commands appropriately. Exam/Review of Systems Vital Signs Vitals Vital Signs Date Time Temp Pulse Resp B/P Pulse Ox O2 Delivery O2 Flow Rate FiO2 05/31/17 14:47 97.7 83 18 152/83 99 05/30/17 19:51 Room Air 05/30/17 19:20 8.0 Intake and Output 05/31/17 05/31/17 06/01/17 15:00 23:00 07:00 Intake Total 400 ml Balance 400 ml Results Result Diagram: 05/31/17 0520 05/31/17 0520 RENETTA CHEEMA M.D. May 31, 2017 21:39
== END 2017-05-31 18:25 | disposition home or self-care (01) | DRG 446 ==
LOC: E/R 15:06 → MS2 17:22
PROVIDERS: ADMIT Internal Medicine; ATTEND Internal Medicine
PROC: 0FB98ZX Excision of Common Bile Duct, Via Natural or Artificial Opening Endoscopic, Diagnostic (ICD-10-PCS; 2017-05-30)
PROC: BF00YZZ Plain Radiography of Bile Ducts using Other Contrast (ICD-10-PCS; 2017-05-30)
PROC: 0F798DZ Dilation of Common Bile Duct with Intraluminal Device, Via Natural or Artificial Opening Endoscopic (ICD-10-PCS; principal; 2017-05-30 17:00)
DX: K83.1 Obstruction of bile duct (principal); E11.8 Type 2 diabetes mellitus with unspecified complications; K86.89 Other specified diseases of pancreas; I10 Essential (primary) hypertension; D64.9 Anemia, unspecified; F10.21 Alcohol dependence, in remission; Z79.4 Long term (current) use of insulin; R63.4 Abnormal weight loss; Z68.21 Body mass index [BMI] 21.0-21.9, adult; Z87.19 Personal history of other diseases of the digestive system
CPT/HCPCS: 36415; 74176; 74178; 74181; 74330; 76705; 80048; 80053; 80076; 82105; 82247; 82248; 82378; 82962; 83036; 83690; 83735; 84100; 84484; 85025; 85610; 85730; 86301; 86304; 86704; 86709; 86803; 87340; 88104; 88305; 96374; 96375; C2617; J0360; J0690; J0744; J1815; J2060; J2250; J2270; J2370; J2405; J2765; J3010; J3480; J7030; J7040; J7999; Q9967

== ENCOUNTER 2017-06-19 05:24 | Inpatient (IN) | payer MEDICAID ==
[~2017-06-19] VITALS: Ht 172.7 cm; Wt 86.0 kg
[~2017-06-19 05:24] MED LIST changes: +AMLO-145 PO; +ANTIBIOTICS; +GLIP5TAB13 PO; +HYDR-906 PO; +METF1000 PO; +SITA100T8 PO
[2017-06-19] MEDS ORDERED: morphine 4 MG/ML VIAL IV STA (07:14)
--- NOTE | 2017-06-19 07:18 | ERD ---
ER Documentation Chief Complaint Date/Time DATE: 06/19/17 TIME: 07:15 Chief Complaint c/o RUQ pain. Radiating to back. (+) CA per . HPI 57-year-old male with a history of diabetes, hypertension, and a recently diagnosed with pancreatic head mass with biliary obstruction on 05/26/17 requiring stent placement presenting with right upper quadrant pain that started this morning. The pain in the right upper quadrant is new today, and is radiating to the right flank. He describes as a tight, aching pain. Nothing seems to make it better or worse. He denies any associated fever, chills, nausea, vomiting, diarrhea, or constipation. He does endorse decreased p.o. intake since his diagnosis. ROS All systems reviewed and are negative except as per history of present illness. Medications Home Meds Active Scripts Hydrocodone/Acetaminophen ([place] 5-325 Tablet) 1 Each Tablet, 1 EACH PO Q4 for PAIN, #40 TAB Prov:DAILY ALFORD 05/31/17 Glipizide* (Glipizide*) 5 Mg Tablet, 5 MG PO AC BREAKFAST, #60 TAB Prov:DAILY ALFORD 05/31/17 Amlodipine Besylate* (Amlodipine Besylate*) 5 Mg Tablet, 5 MG PO DAILY, #60 TAB Prov:DAILY ALFORD 05/31/17 Reported Medications Sitagliptin* (Januvia*) 100 Mg Tablet, 100 MG PO DAILY, #30 TAB 05/26/17 Metformin Hcl* (Metformin Hcl*) 1,000 Mg Tablet, 1000 MG PO WITH BREAKFAST DINNE , #60 TAB 05/26/17 Allergies Allergies: Coded Allergies: Penicillins (Verified Allergy, Severe, RASH, 05/26/17) PMhx/Soc History of Surgery: No Anesthesia Reaction: No Hx Neurological Disorder: No Hx Respiratory Disorders: No Hx Cardiac Disorders: Yes (HTN) Hx Psychiatric Problems: No Hx Miscellaneous Medical Probl: No Hx Alcohol Use: Yes (Former drinker) Hx Substance Use: No Hx Tobacco Use: No FmHx Family History: No diabetes Physical Exam Vitals Vital Signs Date Time Temp Pulse Resp B/P Pulse Ox O2 Delivery O2 Flow Rate FiO2 06/19/17 10:00 98.1 75 16 129/89 100 Room Air 06/19/17 08:00 98.1 72 16 133/76 100 Room Air 06/19/17 05:39 98.2 74 18 145/74 100 Physical Exam Const: Thin male, no apparent distress, nontoxic Head: Atraumatic Eyes: Normal Conjunctiva,No obvious scleral icterus ENT: Normal External Ears, Nose and Mouth. Neck: Full range of motion..~ No meningismus. Resp: Clear to auscultation bilaterally Cardio: Regular rate and rhythm, no murmurs Abd: Soft, concave, no hepatosplenomegaly, non tender, non distended. Right upper quadrant lateral small mass noted. Negative Tafoya sign. Normal bowel sounds Skin: No petechiae or rashes, no jaundice Back: No midline or flank tenderness Ext: No cyanosis, or edema Neur: Awake and alert Psych: Normal Mood and Affect Result Diagram: 06/19/1772906/19/17729 Results 24 hrs Laboratory Tests Test 06/19/17 07:30 White Blood Count 9.110^3/ul Red Blood Count 4.1610^6/ul Hemoglobin 11.9g/dl Hematocrit 36.2% Mean Corpuscular Volume 87.0fl Mean Corpuscular Hemoglobin 28.6pg Mean Corpuscular Hemoglobin Concent 32.9g/dl Red Cell Distribution Width 15.9% Platelet Count 68368^3/UL Mean Platelet Volume 12.8fl Neutrophils % 72.5% Lymphocytes % 18.1% Monocytes % 7.6% Eosinophils % 1.2% Basophils % 0.3% Nucleated Red Blood Cells % 0.0/100WBC Neutrophils # (Manual) 710^3/ul Lymphocytes # 1.610^3/ul Monocytes # 0.710^3/ul Eosinophils # 0.110^3/ul Basophils # 0.010^3/ul Nucleated Red Blood Cells # 0.010^3/ul Urine Color YELLOW Urine Clarity CLEAR Urine pH 6.0 Urine Specific Merom 1.006 Urine Ketones NEGATIVEmg/dL Urine Nitrite NEGATIVEmg/dL Urine Bilirubin NEGATIVEmg/dL Urine Urobilinogen NEGATIVEmg/dL Urine Leukocyte Esterase NEGATIVELeu/ul Urine Hemoglobin NEGATIVEmg/dL Urine Glucose NEGATIVEmg/dL Urine Total Protein NEGATIVEmg/dl Sodium Level 142mmol/L Potassium Level 4.5mmol/L Chloride Level 95mmol/L Carbon Dioxide Level 29mmol/L Anion Gap 23 Blood Urea Nitrogen 7mg/dl Creatinine 0.55mg/dl Glucose Level 229mg/dl Calcium Level 9.6mg/dl Total Bilirubin 0.5mg/dl Direct Bilirubin 0.00mg/dl Indirect Bilirubin 0.5mg/dl Aspartate Amino Transf (AST/SGOT) 39IU/L Alanine Aminotransferase (ALT/SGPT) 64IU/L Alkaline Phosphatase 190IU/L Troponin I < 0.012ng/ml Total Protein 7.5g/dl Albumin 4.4g/dl Globulin 3.10g/dl Albumin/Globulin Ratio 1.41 Lipase 94U/L Current Medications Medications (Trade) Dose Ordered Sig/Yaakov Route PRN Reason Start Time Stop Time Status Last Admin Dose Admin Morphine Sulfate (morphine) 4 mg ONCE STAT IV 06/19/17 07:14 06/19/17 07:15 DC 06/19/17 08:03 Ondansetron HCl (Zofran Inj) 4 mg BRIDGE ORDER PRN IV NAUSEA AND/OR VOMITING 06/19/17 10:30 06/20/17 10:29 Acetaminophen 650 mg 650 mg ER BRIDGE PRN PO MILD PAIN/FEVER 06/19/17 10:30 06/20/17 10:29 Potassium Chloride/Sodium Chloride (NS-KCl 20 Meq) 1,000 ml @ 100 mls/hr Q10H IV 06/19/17 10:39 IV Flush (NS 3 ml) 3 ml PER PROTOCOL IV 06/19/17 11:00 Ondansetron HCl (Zofran Inj) 4 mg Q6H PRN IV NAUSEA AND/OR VOMITING 06/19/17 11:00 Acetaminophen (Tylenol Tab) 650 mg Q6H PRN PO PAIN LEVEL 1-3 OR FEVER 06/19/17 11:00 Acetaminophen/ Hydrocodone Bitart ([place] (5/325)) 1 tab Q6H PRN PO MODERATE PAIN LEVEL 4-6 06/19/17 11:00 Morphine Sulfate (morphine) 2 mg Q4H PRN IV SEVERE PAIN LEVEL 7-10 06/19/17 11:00 Bisacodyl (Dulcolax) 5 mg DAILY PRN PO CONSTIPATION 06/19/17 11:00 Famotidine (Pepcid Iv) 20 mg Q12 IV 06/19/17 21:00 Amlodipine Besylate (Norvasc) 5 mg DAILY PO 06/20/17 09:00 Linagliptin (Tradjenta) 5 mg DAILY PO 06/19/17 13:00 Miscellaneous Information (* Miscellaneous Pharmacy Order) Discontinue current oral sulfonylur... ONCE ONCE XX 06/19/17 11:00 06/19/17 11:34 DC Diagnostic Test (Pha) (Accu-Chek) 1 ea 02 XX 06/20/17 02:00 Miscellaneous Information (* Miscellaneous Pharmacy Order) HYPOGLYCEMIA PROTOCOL w... ONCE ONCE XX 06/19/17 11:00 06/19/17 11:34 DC Insulin Aspart (Novolog Insulin Pen) NOVOLOG *MILD* ALGORITHM Q4H SC 06/19/17 11:00 Miscellaneous Information (* Miscellaneous Pharmacy Order) Discontinue all previ... ONCE ONCE XX 06/19/17 11:00 06/19/17 11:34 DC Miscellaneous Information 1 ea NOTE XX 06/19/17 12:00 Glucose (Glutose) 15 gm Q15M PRN PO DECREASED GLUCOSE 06/19/17 12:00 Glucose (Glutose) 22.5 gm Q15M PRN PO DECREASED GLUCOSE 06/19/17 12:00 Dextrose (D50w Syringe) 25 ml Q15M PRN IV DECREASED GLUCOSE 06/19/17 12:00 Dextrose (D50w Syringe) 50 ml Q15M PRN IV DECREASED GLUCOSE 06/19/17 12:00 Glucagon (Glucagen) 1 mg Q15M PRN IM DECREASED GLUCOSE 06/19/17 12:00 Glucose (Glutose) 15 gm Q15M PRN BUCCAL DECREASED GLUCOSE 06/19/17 12:00 Procedures/MDM EMERGENT LABS AND DIAGNOSTIC STUDIES: Lab Results above were reviewed and interpreted by me. CBC: no anemia or evidence of infection CMP: Hyperglycemic. No evidence of electrolyte abnormality, renal failure, hypoglycemia, liver failure. Elevated alk phos Lipase: no evidence of pancreatitis Troponin within normal limits UA normal 12-lead EKG was interpreted by Manoj Lao MD: Normal Sinus Rhythm Normal axis Normal intervals No acute ST or T wave changes suggestive of acute ischemia or STEMI. Radiology Results as interpreted by Radiology below were reviewed by Rosita Lao MD: Ultrasound gallbladder: FINDINGS: The liver 1 meter 16.8 cm and demonstrates increased echogenicity. There is persistent mild intra and extrahepatic biliary ductal dilatation. The CBD measures 7 mm in diameter. The gallbladder is distended with layering sludge seen. There is the gallbladder wall thickening as well as pericholecystic and perihepatic fluid. The onsite case manager reports a negative sonographic Tafoya's sign. The pancreas is not well seen due to overlying bowel gas. The right kidney measures 11.7 cm in length. There is normal echogenicity within the right kidney. There is no perinephric fluid collection. No hydronephrosis, mass, or calculus is seen. IMPRESSION: 1. Distended gallbladder with gallbladder sludge, gallbladder wall thickening, pericholecystic fluid, and reportedly negative sonographic Tafoya's sign. The findings are equivocal for acute cholecystitis. 2. Interval decreased mild intra and extrahepatic biliary duct dilatation, likely secondary to interval placement of a CBD stent. The pancreas is not well visualized on this exam secondary to overlying bowel gas. .Lewis Cali MD, MD Date Time Electronically viewed and signed by .Lewis Cali MD, MD on 06/19/2017 08:15 Chest x-ray no acute abnormalities Initial Nursing notes reviewed. Previous Medical Records requested via the Electronic Health Record. EMERGENCY DEPARTMENT COURSE / MEDICAL DECISION MAKING: Patient is presenting with worsening abdominal pain, in the right upper quadrant , with palpable mass. Ultrasound was ordered showing a distended gallbladder with evidence of cholecystitis. Labs were normal without evidence of sepsis. Patient was treated for his pain. I spoke with , his surgeon that saw him here a few weeks ago. He states that the patient is not a surgical candidate at this time as he has pretty advanced pancreatic cancer that is not officially diagnosed. However he did recommend admission for observation. He will consult on the patient and give his recommendations. Patient will be admitted to the hospitalist service. Departure Diagnosis: Primary Impression: Right upper quadrant pain Additional Impression: Cholecystitis Condition: YOANA Altamirano MD Jun 19, 2017 07:18
--- NOTE | 2017-06-19 07:36 | RADRPT ---
PROCEDURE: XR Chest. CLINICAL INDICATION: Abdominal pain. TECHNIQUE: Single frontal view. COMPARISON: 11/16/2016. FINDINGS: The lungs are clear. The heart size is normal. There is no pleural effusion. There is no pneumothorax. IMPRESSION: 1. Normal chest radiograph. 2. No change from 11/16/2016. RPTAT: QQ .Rk Delatorre MD, MD Date Time Electronically viewed and signed by .Rk Delatorre MD, MD on 06/19/2017 07:36 .R/
[2017-06-19 08:15] LABS: BASOPHILS % 0.3 % (0.0-2.0); EOSINOPHILS # 0.1 10^3/ul (0.0-0.5); EOSINOPHILS % 1.2 % (0.0-7.0); HEMATOCRIT 36.2 % (42.0-52.0); HEMOGLOBIN 11.9 g/dl (14.0-18.0); LYMPHOCYTES # 1.6 10^3/ul (0.8-2.9); LYMPHOCYTES % 18.1 % (15.0-51.0); MEAN CORPUSCULAR HEMOGLOBIN 28.6 pg (29.0-33.0); MEAN CORPUSCULAR HGB CONC 32.9 g/dl (32.0-37.0); MEAN PLATELET VOLUME 12.8 fl (7.4-10.4); MONOCYTE # 0.7 10^3/ul (0.3-0.9); MONOCYTES % 7.6 % (0.0-11.0); NEUTROPHILS % 72.5 % (39.0-77.0); PLATELET COUNT 131 10^3/UL (140-415); RED BLOOD COUNT 4.16 10^6/ul (4.70-6.10); RED CELL DISTRIBUTION WIDTH 15.9 % (11.5-14.5); WHITE BLOOD COUNT 9.1 10^3/ul (4.8-10.8)
--- NOTE | 2017-06-19 08:15 | RADRPT ---
PROCEDURE: US Abdomen (right upper quadrant). CLINICAL INDICATION: Abdominal pain TECHNIQUE: Multiple real-time longitudinal and transverse images of the right upper quadrant of th e abdomen were acquired utilizing a curved array transducer. Images were reviewed on a high-resoluti on PACS workstation. COMPARISON: MRI from 05/30/2017. CT from 05/28/2017. Ultrasound from 05/26/2017. FINDINGS: The liver 1 meter 16.8 cm and demonstrates increased echogenicity. There is persistent mild intra a nd extrahepatic biliary ductal dilatation. The CBD measures 7 mm in diameter. The gallbladder is di stended with layering sludge seen. There is the gallbladder wall thickening as well as pericholecys tic and perihepatic fluid. The campus manager reports a negative sonographic Tafoya's sign. The pancr eas is not well seen due to overlying bowel gas. The right kidney measures 11.7 cm in length. There is normal echogenicity within the right kidney. There is no perinephric fluid collection. No hydronephrosis, mass, or calculus is seen. IMPRESSION: 1. Distended gallbladder with gallbladder sludge, gallbladder wall thickening, pericholecystic flui d, and reportedly negative sonographic Tafoya's sign. The findings are equivocal for acute cholecys titis. 2. Interval decreased mild intra and extrahepatic biliary duct dilatation, likely secondary to inte rval placement of a CBD stent. The pancreas is not well visualized on this exam secondary to overly ing bowel gas. RPTAT: II .Lewis Cali MD, Date Time Electronically viewed and signed by .Lewis Cali MD, on 06/19/2017 08:15 .A/
[2017-06-19 08:25] LABS: ALANINE AMINOTRANSFERASE 64 IU/L (13-69); ALBUMIN 4.4 g/dl (3.3-4.9); ALBUMIN/GLOBULIN RATIO 1.41; ALKALINE PHOSPHATASE 190 IU/L (42-121); ANION GAP 23 (8-16); ASPARTATE AMINO TRANSFERASE 39 IU/L (15-46); BILIRUBIN,INDIRECT 0.5 mg/dl (0-1.1); BILIRUBIN,TOTAL 0.5 mg/dl (0.2-1.3); BLOOD UREA NITROGEN 7 mg/dl (7-20); CALCIUM 9.6 mg/dl (8.4-10.2); CARBON DIOXIDE 29 mmol/L (21-31); CHLORIDE 95 mmol/L (97-110); CREATININE 0.55 mg/dl (0.61-1.24); GLUCOSE 229 mg/dl (70-220); POTASSIUM 4.5 mmol/L (3.5-5.1); SODIUM 142 mmol/L (135-144); TOTAL PROTEIN 7.5 g/dl (6.1-8.1)
[2017-06-19 08:28] LABS: ADD UMIC NO; UR ASCORBIC ACID NEGATIVE (NEGATIVE); UR BILIRUBIN (Dip) NEGATIVE (NEGATIVE); UR BLOOD (Dip) NEGATIVE (NEGATIVE); UR CLARITY CLEAR (CLEAR); UR COLOR YELLOW (YELLOW); UR GLUCOSE (Dip) NEGATIVE (NEGATIVE); UR KETONES (Dip) NEGATIVE (NEGATIVE); UR LEUKOCYTE ESTERASE (Dip) NEGATIVE Leu/ul (NEGATIVE); UR NITRITE (Dip) NEGATIVE (NEGATIVE); UR SPECIFIC GRAVITY (Dip) 1.006 (1.003-1.030); UR TOTAL PROTEIN (Dip) NEGATIVE (NEGATIVE); UR UROBILINOGEN (Dip) NEGATIVE (NEGATIVE)
[2017-06-19 08:38] LABS: TROPONIN-I < 0.012 ng/ml (0.00-0.12)
[2017-06-19] MEDS ORDERED: ONDANSETRON 4 MG INJ IV PRN ×2 (10:30→11:00)
[2017-06-19] MEDS ORDERED: ACETAMINOPHEN 325 MG TAB PO PRN ×2 (10:30→11:00)
--- NOTE | 2017-06-19 10:52 | HP ---
Date/Time of Note Date/Time of Note DATE: 06/19/17 TIME: 10:49 Assessment/Plan VTE Prophylaxis VTE Prophylaxis Intervention: SCD's Assessment/Plan Chief Complaint/Hosp Course 1. Acute abdominal pain. Ultrasound showing possible cholecystitis. Hepatobiliary surgery has been consulted since the patient has known history of possible pancreatic mass. The patient will be started on appropriate antibiotics. The patient will be kept n.p.o. The patient will be started on IV fluids. 2. Questionable pancreatic mass. The patient's tumor markers that was done on his previous admission in the beginning of this month was positive. The patient 's ERCP brushings were negative for any malignancy. The patient is scheduled to follow-up with hepatobiliary surgery as outpatient. Will involve hepatobiliary surgery on the case. 3. Type 2 diabetes mellitus. The patient's oral medications will be put on hold. The patient will be started on sliding scale insulin. 4. Essential hypertension. The patient will be continued on antihypertensives. 5. Anemia. Normocytic and hypochromic. We will monitor H&H closely. Obtain an iron panel. Plan: The patient will be admitted to inpatient medical surgical floor. The patient will be kept n.p.o. The patient will be started on DVT prophylaxis and gastrointestinal prophylaxis. The patient will remain a full code. Activities will be as tolerated. The rest of the patient's management will be based on the clinical course, inputs from consultants, and the results of diagnostic studies. Based on the patient's clinical presentation, he most probably requires at least 2 midnights' stay for further management and evaluation of his clinical presentation. The case and management of this patient was fully discussed with Dr. Ac Problems: HPI/ROS Admit Date/Time Admit Date/Time Hx of Present Illness Reason for admission: Abdominal pain. Consultants 1. Mark Martinez MD, Hepatobiliary Surgery. 2. Felicia Macias MD, Gastroenterology. This is a 57-year-old male with past medical history of type 2 diabetes mellitus, essential hypertension, and recently diagnosed intra-and extrahepatic biliary ductal dilatation with a transition point, possibly a malignant lesion status post ERCP and stent placement on 05-31-2017, who came to the emergency room with chief complaint of abdominal pain. The patient verbalized abdominal pain as epigastric and towards the right upper quadrant with radiation to the back. The patient verbalized the pain as 7/10. The patient tried [place] with minimal pain relief. The patient denied any associated nausea vomiting. Denied any diarrhea or constipation. He denied any associated fevers. The patient has an appointment with Dr. Martinez on a June 21, 2017 for his underlying pancreatic lesion. Of note, the pathology from his ERCP brushings that was done on 05-31-2017 was negative for any malignancy. The patient underwent a gallbladder ultrasound in the emergency room that showed distended gallbladder with gallbladder sludge and gallbladder wall thickening along with pericholecystic fluid. Ultrasound showed interval decreased mild intra-and extrahepatic biliary duct dilatation likely secondary to interval placement of a CBD stent. The patient was treated with IV analgesics in the emergency room. ROS Constitutional: no complaints Eyes: no complaints ENT: no complaints Respiratory: no complaints Cardiovascular: no complaints Gastrointestinal: pain Genitourinary: no complaints Musculoskeletal: no complaints Skin: no complaints Neurologic: no complaints Endocrine: no complaints Lymphatic: no complaints Psychological: no complaints Immunologic: no complaints PMH/Family/Social Past Medical History Medical History: diabetes, hypertension, other (Questionable pancreatic mass.) Past Surgical History Past Surgical Hx: no surgical history Social History Live with his family. Alcohol Use: none Smoking Status: Never smoker Drug Use: none Exam/Review of Systems Vital Signs Vitals Vital Signs Date Time Temp Pulse Resp B/P Pulse Ox O2 Delivery O2 Flow Rate FiO2 06/19/17 08:00 98.1 72 16 133/76 100 Room Air Exam Exam General: Adequately build 57 year-old male lying in bed in no apparent distress. HEENT: Normocephalic, atraumatic. Eyes: Anicteric sclerae, conjunctivae clear. ENT: Nasal septum midline, oral mucosa moist. Neck supple, no JVD noticed. Respiratory: Bilaterally clear breath sounds. No use of accessory muscles of respiration. No adventitious breath sounds. Cardiovascular: S1, S2 heard. No murmurs or gallops. Abdomen: Soft and nondistended. Bowel sounds positive in all 4 quadrants. Right upper quadrant tenderness. No guarding. Genitourinary: Deferred. Extremities: No cyanosis, no clubbing, no edema. Peripheral pulses palpable. Neurologic: Cranial nerves II through XII grossly intact. The patient is awake, alert, and oriented. Skin: Normal skin turgor. No skin rashes. Labs Result Diagram: 06/19/17 0730 06/19/17 0730 Procedures Procedures Gall Bladder Ultrasound IMPRESSION: 1. Distended gallbladder with gallbladder sludge, gallbladder wall thickening, pericholecystic fluid, and reportedly negative sonographic Tafoya's sign. The findings are equivocal for acute cholecystitis. 2. Interval decreased mild intra and extrahepatic biliary duct dilatation, likely secondary to interval placement of a CBD stent. The pancreas is not well visualized on this exam secondary to overlying bowel gas. RAUL MONACO NP Jun 19, 2017 10:52
[2017-06-19] MEDS ORDERED: HYDROCODONE/APAP (5/325) TAB PO PRN (11:00)
[2017-06-19] MEDS: INSULIN ASPART [NOVOLOG] 3 ML PEN SC SCH ×4 (11:00→23:00)
[2017-06-19] MEDS ORDERED: BISACODYL (EC) 5 MG TAB PO PRN (11:00)
[2017-06-19] MEDS ORDERED: NACL 0.9% 3 ML SYG IV SCH (11:00)
--- NOTE | 2017-06-19 11:43 | CONS ---
Date/Time of Note Date/Time of Note DATE: 06/19/17 TIME: 10:49 Assessment/Plan Assessment/Plan Chief Complaint/Hosp Course 1. Cholecystitis: 2/2 obstructive pathology from poss pancreatic CA vs. stent obstruction; pain improved, LFT's improved, lipase nl -poss ERCP -pain management -further work up of pancreatic mass for further staging and/or surgical intervention -Will refer patient back to Dr. Martinez for further management 2.Transaminitis: improved -as above 3. Diabetes with hyperglycemia -blood sugar optimization 4. History of hypertension -Continue medical management 5. Normocytic hypochromic anemia: no acute bleed noted -work up per medical team -monitor and transfuse as needed Patient seen and examined in collaboration with Dr. Kar Velez. Thank you. Problems: Consultation Date/Type/Reason Admit Date/Time Date of Consultation: Jun 19, 2017 Type of Consultation: surgical Reason for Consultation abdominal pain, cholecystitis Hx of Present Illness Gen Garcia is a 57 yo man who was recently discharged and presents again to the ED with c/o sharp RUQ pain that woke him from sleep this morning. He has notable history for pancreatic mass, with elevated CEA and s/p ERCP with stent placement. He was cared for by Dr. Martinez during his last admission and had a scheduled follow up him on the of this month. He denies fevers, chills, nausea, vomiting, diarrhea and dysuria. He reports +flatus but no bm x 3 days which is usual for the patient. Gallbladder ultrasound showed a distended gallbladder with gallbladder sludge, gallbladder wall thickening, pericholecystic fluid. Surgical consult was called for evaluation. Constitutional: improved Eyes: No visual change ENT: No dysphagia, No sore throat Respiratory: No cough, No shortness of breath Cardiovascular: No chest pain, No palpitations Gastrointestinal: other (as above) Genitourinary: No dysuria Musculoskeletal: No back pain Skin: No bruising, No pruritis Neurologic: No confusion Endocrine: No polyuria Lymphatic: No adenopathy Psychological: No anxiety, No confusion Past Medical History Diabetes Hypertension pancreatic mass Past Surgical History ERCP with stent placement Family History Significant Family History: no pertinent family hx Social History Alcohol Use: none Drug Use: none Exam/Review of Systems Vital Signs Vitals Vital Signs Date Time Temp Pulse Resp B/P Pulse Ox O2 Delivery O2 Flow Rate FiO2 8/21/17 10:00 98.1 75 16 129/89 100 Room Air Exam Constitutional: alert, oriented Psych: nl mood/affect Head: atraumatic, normocephalic Eyes: nl lids, nl sclera ENMT: nl nasal mucosa & septum Neck: non-tender, supple Respiratory: normal air movement Cardiovascular: nl pulses, regular rate and rhythm, No edema Gastrointestinal: soft, tender (min RUQ, negative mooney's) Musculoskeletal: nl extremities to inspection Extremities: normal pulses Neurological: nl mental status, nl speech, nl strength Skin: nl turgor Results Result Diagram: 06/19/17 0730 06/19/17 0730 Results 24 hrs Laboratory Tests Test 06/19/17 07:30 White Blood Count 9.1 # Red Blood Count 4.16 L Hemoglobin 11.9 L Hematocrit 36.2 L Mean Corpuscular Volume 87.0 Mean Corpuscular Hemoglobin 28.6 L Mean Corpuscular Hemoglobin Concent 32.9 Red Cell Distribution Width 15.9 H Platelet Count 131 L Mean Platelet Volume 12.8 H Neutrophils % 72.5 Lymphocytes % 18.1 Monocytes % 7.6 Eosinophils % 1.2 Basophils % 0.3 Nucleated Red Blood Cells % 0.0 Neutrophils # (Manual) 7 Lymphocytes # 1.6 Monocytes # 0.7 Eosinophils # 0.1 Basophils # 0.0 Nucleated Red Blood Cells # 0.0 Urine Color YELLOW Urine Clarity CLEAR Urine pH 6.0 Urine Specific [place] 1.006 Urine Ketones NEGATIVE Urine Nitrite NEGATIVE Urine Bilirubin NEGATIVE Urine Urobilinogen NEGATIVE Urine Leukocyte Esterase NEGATIVE Urine Hemoglobin NEGATIVE Urine Glucose NEGATIVE Urine Total Protein NEGATIVE Sodium Level 142 Potassium Level 4.5 Chloride Level 95 L Carbon Dioxide Level 29 Anion Gap 23 H Blood Urea Nitrogen 7 Creatinine 0.55 L Glucose Level 229 H Calcium Level 9.6 Total Bilirubin 0.5 Direct Bilirubin 0.00 Indirect Bilirubin 0.5 Aspartate Amino Transf (AST/SGOT) 39 Alanine Aminotransferase (ALT/SGPT) 64 Alkaline Phosphatase 190 H Troponin I < 0.012 Total Protein 7.5 Albumin 4.4 Globulin 3.10 Albumin/Globulin Ratio 1.41 Lipase 94 Medications Medications Current Medications Potassium Chloride/Sodium Chloride (NS-KCl 20 Meq) 1,000 ml @ 100 mls/hr Q10H IV ; Start 06/19/17 at 10:39; Status UNV Ondansetron HCl (Zofran Inj) 4 mg Q6H PRN IV NAUSEA AND/OR VOMITING; Start at 11:00; Status UNV Acetaminophen (Tylenol Tab) 650 mg Q6H PRN PO PAIN LEVEL 1-3 OR FEVER; Start at 11:00; Status UNV Acetaminophen/ Hydrocodone Bitart ([place] (5/325)) 1 tab Q6H PRN PO MODERATE PAIN LEVEL 4-6; Start 06/19/17 at 11:00; Status UNV Morphine Sulfate (morphine) 2 mg Q4H PRN IV SEVERE PAIN LEVEL 7-10; Start 06/19 at 11:00; Status UNV Bisacodyl (Dulcolax) 5 mg DAILY PRN PO CONSTIPATION; Start 06/19/17 at 11:00; Status UNV Famotidine (Pepcid Iv) 20 mg Q12 IV ; Start 06/19/17 at 21:00; Status UNV Amlodipine Besylate (Norvasc) 5 mg DAILY PO ; Start 06/20/17 at 09:00; Status UNV Miscellaneous Information 100 mg DAILY PO ; Start 06/20/17 at 09:00; Status UNV IDALMIS MORA NP Jun 19, 2017 11:04
[2017-06-19] MEDS ORDERED: DEXTROSE 50% 50 ML SYRINGE IV PRN ×2 (12:00)
[2017-06-19] MEDS ORDERED: GLUCOSE GEL 15 GRAM TUBE BUCCAL PRN (12:00)
[2017-06-19] MEDS ORDERED: GLUCAGON 1 MG INJ IM PRN (12:00)
[2017-06-19] MEDS ORDERED: GLUCOSE GEL 15 GRAM TUBE PO PRN ×2 (12:00)
[2017-06-19] MEDS ORDERED: metroNIDAZOLE 500 MG/NS (PMX) 100 ML IVPB ONE (12:00)
[2017-06-19] MEDS ORDERED: CIPROFLOXACIN 400MG/D5W 200 ML IVPB ONE (12:00)
[2017-06-19 12:28] LABS: IRON 24 ug/dl (35-150)
[2017-06-19] MEDS ORDERED: hydrALAzine 20 MG INJ IV PRN (12:30)
[2017-06-19 12:37] LABS: TOTAL IRON BINDING CAPACITY 248 ug/dl (241-421)
[2017-06-19 12:55] VITALS: PULSE 72; TEMP 98.1
[2017-06-19 13:00] VITALS: Ht 172.7 cm; Wt 86.0 kg
[2017-06-19] MEDS: LINAGLIPTIN 5 MG TABLET PO SCH (13:00)
[2017-06-19] MEDS: NS + KCL 20 MEQ 1,000 ML IV SCH ×2 (13:30→20:39)
[2017-06-19 13:34] VITALS: BP 152/87; RESP 18
[2017-06-19] MEDS: morphine 2 MG INJ IV PRN ×2 (13:46→23:21)
--- NOTE | 2017-06-19 15:04 | CONS ---
Date/Time of Note Date/Time of Note DATE: 06/19/17 TIME: 15:03 Assessment/Plan Assessment/Plan Additional Assessment/Plan [facility] INPATIENT CONSULTATION NOTE DATE OF SERVICE: 06/19/2017 PLACE OF SERVICE: [facility], sixth floor ASSESSMENT AND PLAN: A very-pleasant 57-year-old gentleman well-known to me from prior recent admission to 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 I do not believe that the patient's gallbladder is the main reason for the pain, although certainly possible that it is contributing to the pain. No indication for acute surgical intervention at this time. Patient would benefit from previously planned endoscopic ultrasound evaluation of the head of the pancreas in order to further clarify the stage of his disease and to see if he is eligible for neoadjuvant chemotherapy plus, minus radiation therapy in an attempt to see if the patient can get to a Whipple procedure. In this setting, most if not all elective operations should be delayed, fortunately, I do not believe that the patient requires a cholecystectomy at this time. Explained to the patient (no family present during my discussions with the patient) and answered all of his questions to the best my ability. Patient appeared to understand and agreed with the plans. With above assessment, I've recommended the followin. Agree with observation in-house 2. Consider gastroenterology consultation 3. Treat symptoms 4. Discharge when medically stable to return to plans for obtaining endoscopic ultrasound evaluation. Patient may also benefit from potential lateral transfer to another hospital that has endoscopic ultrasound available for this purpose; please ask case management and social services aide, as well as other hospital administration to investigate Thank you very much for having me involved in the care of this very pleasant patient and wonderful family. If you have any questions, please feel free to contact me at [phone]. Nature of presenting problem: High severity Please note that, given the multiple to extensive number of diagnoses or management options, the extensive amount and/or complexity of data needed to be reviewed, and high risk of complications and/or morbidity or mortality, this qualifies as high complexity type of decision-making. Disclaimer: Inadvertent spelling and grammatical errors are likely due to EHR/ dictation software use and do not reflect on the quality of delivered patient care. Also, please note that the electronic time recorded on this node does not necessarily reflect the actual time of the visit. Updated clinical summary: A very-pleasant 56-year-old gentleman with comorbidities including DMII, previous ETOH abuse and h/o pancreatitis, admitted for jaundice and abdominal pain and 100 pound weight loss. Status post ERCP 05/31/[address] [facility] by Dr. Macias with findings of high-grade narrowing in the distal common bile duct. Cytology brushings obtained (final pathology showed no obvious malignancy). Post endoscopic retrograde sphincterotomy and post placement f a 10 x 60 mm fully covered Wallstent. Comorbidities: 1. DMII 2. Prior reported pancreatitis 3. ETOH 4. Status post ERCP 05/31/[address] [facility] by Dr. Macias with findings of high-grade narrowing in the distal common bile duct. Cytology brushings obtained (final pathology showed no obvious malignancy). Post endoscopic retrograde sphincterotomy and post placement f a 10 x 60 mm fully covered Wallstent. CONSULTATION REQUESTED BY: Rob Foreman NP HISTORY OF PRESENT ILLNESS: The patient is a very pleasant 57-year-old gentleman well-known to me from prior recent admission to 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 Location of the pain was epigastric with some radiation to the back. At its worst, pain was 7 out of 10. Patient reported ongoing issues with abdominal pain similar to this and decided to come to the emergency department since his pain was slightly worse than normal. Note the patient has been on pain medications outside. Did not report any changes in his bowel or bladder habits. No associated major vomiting or nausea with this. No other major complaints. Workup in the emergency department included an ultrasound of the gallbladder that demonstrated gallbladder wall thickening along with pericholecystic fluid. There was also interval decreased intra-and extrahepatic bile duct dilatation compared to previous admission. I also enclose my original consultation with him during the last admission at the end of this note for further reference and information. ALLERGIES: PCN (? reaction) MEDICATIONS Documented in the electronic records and reviewed by me. Please see the electronic records for details, as well as details for inpatient medications which were also reviewed by me. Home medications include metformin and Januvia. SOCIAL HISTORY: The patient lives with family. - Tob; - ETOH (quit Oct 2016 after decades of heavy use); - IVDU FAMILY HISTORY: There are no significant medical, surgical or oncologic issues in the family as reported by the patient or reflected in the chart. REVIEW OF SYSTEMS: Other than mentioned above, there were no other pertinent positives or pertinent negatives in an otherwise complete 14 point review of systems. PHYSICAL EXAMINATION GENERAL: The patient appears to be a very pleasant gentleman of descent lying in bed, appearing stated age, and otherwise in no acute distress. BMI: 28.8 (previously 21.07 May 2017) VITAL SIGNS: AVSS (please also see auto important data if available as well as the electronic records) HEENT: Normocephalic and atraumatic. Extraocular muscles and hearing are grossly intact bilaterally and symmetrically. Sclerae are nonicteric. Oral cavity is clear; oral mucosa appear to be pink and moist. Dentition: fair. NECK: Supple. There is no lymphadenopathy or JVD. There is no submental, submandibular or supraclavicular lymphadenopathy. CHEST: Rises symmetrically with each breath; patient is breathing comfortably. There are no audible wheezes, rales or rhonchi on the gross exam. HEART: Pulse is regular and palpable on the right wrist. Capillary refill is normal. Carotid pulses are palpable bilaterally and symmetrically in the neck. EXTREMITIES: Lower extremities contain no pitting edema around the ankles bilaterally and symmetrically. ABDOMEN: Abdomen is soft, mildly tender in RUQ and nondistended. No evidence of ascites, organomegaly, caput medusae, engorged subcutaneous veins, or other abnormalities. There are no peritoneal signs or guarding. SKIN: Appears to be pink and feels warm to touch. NEUROLOGIC: Awake, alert, and follows commands appropriately. LABORATORY DATA: See below IMAGING: See electronic chart. Please note that I've personally reviewed all pertinent available images and I agree in general with their overall reported findings. My initial consultation with the patient [facility] 05/27/2017: [facility] INPATIENT CONSULTATION NOTE DATE OF SERVICE: 05/27/2017 PLACE OF SERVICE: [facility], fourth floor ASSESSMENT AND PLAN: A very-pleasant 56-year-old gentleman with comorbidities including DMII, previous ETOH abuse and h/o pancreatitis, admitted for jaundice and abdominal pain. Likely etiology is benign disease, but given 30 lb weight loss, important to evaluate for malignancy. No indication for acute surgical intervention. Needs GI eval with likely need for ERCP. Further plans after above. I explained all of this to the patient (no family in the room) and answered all their questions to the best my ability. I believe that the patient and appear to understand and agree with the plans. With above assessment, I've recommended the followin. Continue inpatient management 2. MRCP 3. CT with IV contrast pancreas protocol 4. Consider GI consultation for ERCP 3. Multidisciplinary tumor board presentation 4. Tumor markers 5. Further HPB management after above Thank you very much for having me involved in the care of this very pleasant patient and wonderful family. If you have any questions, please feel free to contact me at [phone]. Nature of presenting problem: High severity Please note that, given the extensive number of diagnoses or management options , the extensive amount and/or complexity of data needed to be reviewed, and high risk of complications and/or morbidity or mortality, this qualifies as high complexity type of decision-making. Disclaimer: Inadvertent spelling and grammatical errors are likely due to EHR/ dictation software use and do not reflect on the quality of delivered patient care. Also, please note that the electronic time recorded on this node does not necessarily reflect the actual time of the visit. Updated clinical summary: A very-pleasant 56-year-old gentleman with comorbidities including DMII, previous ETOH abuse and h/o pancreatitis, admitted for jaundice and abdominal pain. Comorbidities: 1. DMII 2. Prior reported pancreatitis 3. ETOH CONSULTATION REQUESTED BY: Christian Ac MD HISTORY OF PRESENT ILLNESS: The patient is a very pleasant 56-year-old gentleman with comorbidities including DMII, previous ETOH abuse and h/o pancreatitis, admitted for jaundice and abdominal pain. + dark urine, + jaundice for a few weeks, + abd pain, + nausea (mild) and - vomiting. 30 lb weight loss. Previous pancreatitis. Quit drinking Oct 2016; heavy drinking for a few decades before that. No other major complaints during my visit. ALLERGIES: PCN (? reaction) MEDICATIONS Documented in the electronic records and reviewed by me. Please see the electronic records for details, as well as details for inpatient medications which were also reviewed by me. Home medications include metformin and Januvia. SOCIAL HISTORY: The patient lives with family. - Tob; - ETOH (quit Oct 2016 after decades of heavy use); - IVDU FAMILY HISTORY: There are no significant medical, surgical or oncologic issues in the family as reported by the patient or reflected in the chart. REVIEW OF SYSTEMS: Other than mentioned above, there were no other pertinent positives or pertinent negatives in an otherwise complete 14 point review of systems. PHYSICAL EXAMINATION GENERAL: The patient appears to be a very pleasant gentleman of descent lying in bed, appearing stated age, and otherwise in no acute distress. BMI: 21.9 VITAL SIGNS: AVSS (please also see auto important data if available as well as the electronic records) HEENT: Normocephalic and atraumatic. Extraocular muscles and hearing are grossly intact bilaterally and symmetrically. Sclerae are nonicteric. Oral cavity is clear; oral mucosa appear to be pink and moist. Dentition: fair. NECK: Supple. There is no lymphadenopathy or JVD. There is no submental, submandibular or supraclavicular lymphadenopathy. CHEST: Rises symmetrically with each breath; patient is breathing comfortably. There are no audible wheezes, rales or rhonchi on the gross exam. HEART: Pulse is regular and palpable on the right wrist. Capillary refill is normal. Carotid pulses are palpable bilaterally and symmetrically in the neck. EXTREMITIES: Lower extremities contain no pitting edema around the ankles bilaterally and symmetrically. ABDOMEN: Abdomen is soft, mildly tender in RUQ and nondistended. No evidence of ascites, organomegaly, caput medusae, engorged subcutaneous veins, or other abnormalities. There are no peritoneal signs or guarding. SKIN: Appears to be pink and feels warm to touch. NEUROLOGIC: Awake, alert, and follows commands appropriately. LABORATORY DATA: See below. IMAGING: See electronic chart. Please note that I've personally reviewed all pertinent available images and I agree in general with their overall reported findings. Consultation Date/Type/Reason Admit Date/Time Constitutional: improved Eyes: no complaints ENT: no complaints Respiratory: no complaints Cardiovascular: no complaints Gastrointestinal: pain Genitourinary: no complaints Musculoskeletal: no complaints Skin: no complaints Neurologic: no complaints Endocrine: No polyuria Lymphatic: no complaints Psychological: no complaints Immunologic: no complaints Past Medical History Medical History: diabetes, hypertension, other (Questionable pancreatic mass.) Social History Alcohol Use: none Drug Use: none Exam/Review of Systems Vital Signs Vitals Vital Signs Date Time Temp Pulse Resp B/P Pulse Ox O2 Delivery O2 Flow Rate FiO2 06/19/17 13:34 98.8 77 18 152/87 100 06/19/17 12:55 Room Air Results Result Diagram: 06/19/17 0730 06/19/17 0730 Results 24 hrs Laboratory Tests Test 06/19/17 07:30 06/19/17 13:48 White Blood Count 9.1 # Red Blood Count 4.16 L Hemoglobin 11.9 L Hematocrit 36.2 L Mean Corpuscular Volume 87.0 Mean Corpuscular Hemoglobin 28.6 L Mean Corpuscular Hemoglobin Concent 32.9 Red Cell Distribution Width 15.9 H Platelet Count 131 L Mean Platelet Volume 12.8 H Neutrophils % 72.5 Lymphocytes % 18.1 Monocytes % 7.6 Eosinophils % 1.2 Basophils % 0.3 Nucleated Red Blood Cells % 0.0 Neutrophils # (Manual) 7 Lymphocytes # 1.6 Monocytes # 0.7 Eosinophils # 0.1 Basophils # 0.0 Nucleated Red Blood Cells # 0.0 Urine Color YELLOW Urine Clarity CLEAR Urine pH 6.0 Urine Specific [place] 1.006 Urine Ketones NEGATIVE Urine Nitrite NEGATIVE Urine Bilirubin NEGATIVE Urine Urobilinogen NEGATIVE Urine Leukocyte Esterase NEGATIVE Urine Hemoglobin NEGATIVE Urine Glucose NEGATIVE Urine Total Protein NEGATIVE Sodium Level 142 Potassium Level 4.5 Chloride Level 95 L Carbon Dioxide Level 29 Anion Gap 23 H Blood Urea Nitrogen 7 Creatinine 0.55 L Glucose Level 229 H Calcium Level 9.6 Iron Level 24 L Total Iron Binding Capacity 248 Percent Iron Saturation 10 L Ferritin 287.0 H Total Bilirubin 0.5 Direct Bilirubin 0.00 Indirect Bilirubin 0.5 Aspartate Amino Transf (AST/SGOT) 39 Alanine Aminotransferase (ALT/SGPT) 64 Alkaline Phosphatase 190 H Troponin I < 0.012 Total Protein 7.5 Albumin 4.4 Globulin 3.10 Albumin/Globulin Ratio 1.41 Lipase 94 Bedside Glucose 156 Medications Medications Current Medications Potassium Chloride/Sodium Chloride (NS-KCl 20 Meq) 1,000 ml @ 100 mls/hr Q10H IV Last administered on 06/19/17t 13:30; Admin Dose 100 MLS/HR; Start 06/19/17 at 10:39 Ondansetron HCl (Zofran Inj) 4 mg Q6H PRN IV NAUSEA AND/OR VOMITING; Start at 11:00 Acetaminophen (Tylenol Tab) 650 mg Q6H PRN PO PAIN LEVEL 1-3 OR FEVER; Start at 11:00 Acetaminophen/ Hydrocodone Bitart ([place] (5/325)) 1 tab Q6H PRN PO MODERATE PAIN LEVEL 4-6; Start 06/19/17 at 11:00 Morphine Sulfate (morphine) 2 mg Q4H PRN IV SEVERE PAIN LEVEL 7-10; Start 06/19 at 11:00 Bisacodyl (Dulcolax) 5 mg DAILY PRN PO CONSTIPATION; Start 06/19/17 at 11:00 Famotidine (Pepcid Iv) 20 mg Q12 IV ; Start 06/19/17 at 21:00 Amlodipine Besylate (Norvasc) 5 mg DAILY PO ; Start 06/20/17 at 09:00 Linagliptin (Tradjenta) 5 mg DAILY PO ; Start 06/19/17 at 13:00 Diagnostic Test (Pha) (Accu-Chek) 1 ea 02 XX ; Start 06/20/17 at 02:00 Insulin Aspart (Novolog Insulin Pen) NOVOLOG *MILD* ALGORITHM Q4H SC ; Start at 11:00 Miscellaneous Information 1 ea NOTE XX ; Start 06/19/17 at 12:00 Glucose (Glutose) 15 gm Q15M PRN PO DECREASED GLUCOSE; Start 06/19/17 at 12:00 Glucose (Glutose) 22.5 gm Q15M PRN PO DECREASED GLUCOSE; Start 06/19/17 at 12: 00 Dextrose (D50w Syringe) 25 ml Q15M PRN IV DECREASED GLUCOSE; Start 06/19/17 at 12:00 Dextrose (D50w Syringe) 50 ml Q15M PRN IV DECREASED GLUCOSE; Start 06/19/17 at 12:00 Glucagon (Glucagen) 1 mg Q15M PRN IM DECREASED GLUCOSE; Start 06/19/17 at 12:00 Glucose (Glutose) 15 gm Q15M PRN BUCCAL DECREASED GLUCOSE; Start 06/19/17 at 12 :00 Hydralazine HCl (Apresoline) 10 mg Q6H PRN IV SBP>160; Start 06/19/17 at 12:30 RENETTA CHEEMA M.D. Jun 19, 2017 15:03
[2017-06-19 20:00] VITALS: BP 143/72; RESP 20
[2017-06-19] MEDS: FAMOTIDINE 20 MG INJ IV SCH (20:17)
--- NOTE | 2017-06-19 21:12 | CONS ---
Date/Time of Note Date/Time of Note DATE: 06/19/17 TIME: 21:12 Consultation Date/Type/Reason Admit Date/Time Constitutional: improved Eyes: no complaints ENT: no complaints Respiratory: no complaints Cardiovascular: no complaints Gastrointestinal: pain Genitourinary: no complaints Musculoskeletal: no complaints Skin: no complaints Neurologic: no complaints Endocrine: No polyuria Lymphatic: no complaints Psychological: no complaints Immunologic: no complaints Past Medical History Medical History: diabetes, hypertension, other (Questionable pancreatic mass.) Social History Alcohol Use: none Smoking Status: Never smoker Drug Use: none Exam/Review of Systems Vital Signs Vitals Vital Signs Date Time Temp Pulse Resp B/P Pulse Ox O2 Delivery O2 Flow Rate FiO2 06/19/17 20:00 98.7 81 20 143/72 100 06/19/17 12:55 Room Air Results Result Diagram: 06/19/17 0730 06/19/17 0730 Results 24 hrs Laboratory Tests Test 06/19/17 07:30 06/19/17 13:48 06/19/17 16:10 06/19/17 18:53 White Blood Count 9.1 # Red Blood Count 4.16 L Hemoglobin 11.9 L Hematocrit 36.2 L Mean Corpuscular Volume 87.0 Mean Corpuscular Hemoglobin 28.6 L Mean Corpuscular Hemoglobin Concent 32.9 Red Cell Distribution Width 15.9 H Platelet Count 131 L Mean Platelet Volume 12.8 H Neutrophils % 72.5 Lymphocytes % 18.1 Monocytes % 7.6 Eosinophils % 1.2 Basophils % 0.3 Nucleated Red Blood Cells % 0.0 Neutrophils # (Manual) 7 Lymphocytes # 1.6 Monocytes # 0.7 Eosinophils # 0.1 Basophils # 0.0 Nucleated Red Blood Cells # 0.0 Urine Color YELLOW Urine Clarity CLEAR Urine pH 6.0 Urine Specific [place] 1.006 Urine Ketones NEGATIVE Urine Nitrite NEGATIVE Urine Bilirubin NEGATIVE Urine Urobilinogen NEGATIVE Urine Leukocyte Esterase NEGATIVE Urine Hemoglobin NEGATIVE Urine Glucose NEGATIVE Urine Total Protein NEGATIVE Sodium Level 142 Potassium Level 4.5 Chloride Level 95 L Carbon Dioxide Level 29 Anion Gap 23 H Blood Urea Nitrogen 7 Creatinine 0.55 L Glucose Level 229 H Calcium Level 9.6 Iron Level 24 L Total Iron Binding Capacity 248 Percent Iron Saturation 10 L Ferritin 287.0 H Total Bilirubin 0.5 Direct Bilirubin 0.00 Indirect Bilirubin 0.5 Aspartate Amino Transf (AST/SGOT) 39 Alanine Aminotransferase (ALT/SGPT) 64 Alkaline Phosphatase 190 H Troponin I < 0.012 Total Protein 7.5 Albumin 4.4 Globulin 3.10 Albumin/Globulin Ratio 1.41 Lipase 94 Bedside Glucose 156 173 146 Medications Medications Current Medications Potassium Chloride/Sodium Chloride (NS-KCl 20 Meq) 1,000 ml @ 100 mls/hr Q10H IV Last administered on 06/19/17 13:30; Admin Dose 100 MLS/HR; Start 06/19/17 at 10:39 Ondansetron HCl (Zofran Inj) 4 mg Q6H PRN IV NAUSEA AND/OR VOMITING; Start at 11:00 Acetaminophen (Tylenol Tab) 650 mg Q6H PRN PO PAIN LEVEL 1-3 OR FEVER; Start at 11:00 Acetaminophen/ Hydrocodone Bitart ([place] (5/325)) 1 tab Q6H PRN PO MODERATE PAIN LEVEL 4-6; Start 06/19/17 at 11:00 Morphine Sulfate (morphine) 2 mg Q4H PRN IV SEVERE PAIN LEVEL 7-10 Last administered on 06/19/17 13:46; Admin Dose 2 MG; Start 06/19/17 at 11:00 Bisacodyl (Dulcolax) 5 mg DAILY PRN PO CONSTIPATION; Start 06/19/17 at 11:00 Famotidine (Pepcid Iv) 20 mg Q12 IV Last administered on 06/19/17 20:17; Admin Dose 20 MG; Start 06/19/17 at 21:00 Amlodipine Besylate (Norvasc) 5 mg DAILY PO ; Start 06/20/17 at 09:00 Linagliptin (Tradjenta) 5 mg DAILY PO ; Start 06/19/17 at 13:00 Diagnostic Test (Pha) (Accu-Chek) 1 ea 02 XX ; Start 06/20/17 at 02:00 Insulin Aspart (Novolog Insulin Pen) NOVOLOG *MILD* ALGORITHM Q4H SC Last administered on 06/19/17 18:59; Admin Dose 1 UNIT; Start 06/19/17 at 11:00 Miscellaneous Information 1 ea NOTE XX ; Start 06/19/17 at 12:00 Glucose (Glutose) 15 gm Q15M PRN PO DECREASED GLUCOSE; Start 06/19/17 at 12:00 Glucose (Glutose) 22.5 gm Q15M PRN PO DECREASED GLUCOSE; Start 06/19/17 at 12: 00 Dextrose (D50w Syringe) 25 ml Q15M PRN IV DECREASED GLUCOSE; Start 06/19/17 at 12:00 Dextrose (D50w Syringe) 50 ml Q15M PRN IV DECREASED GLUCOSE; Start 06/19/17 at 12:00 Glucagon (Glucagen) 1 mg Q15M PRN IM DECREASED GLUCOSE; Start 06/19/17 at 12:00 Glucose (Glutose) 15 gm Q15M PRN BUCCAL DECREASED GLUCOSE; Start 06/19/17 at 12 :00 Hydralazine HCl (Apresoline) 10 mg Q6H PRN IV SBP>160; Start 06/19/17 at 12:30 JOSÉ MIGUEL GREGORY MD Jun 19, 2017 21:12
[2017-06-20 02:00] VITALS: BP 126/72; RESP 20
[2017-06-20] MEDS: ACCU-CHEK XX SCH (02:00)
[2017-06-20] MEDS: INSULIN ASPART [NOVOLOG] 3 ML PEN SC SCH ×6 (03:00→20:47)
[2017-06-20] MEDS: NS + KCL 20 MEQ 1,000 ML IV SCH ×2 (03:44→14:55)
[2017-06-20 05:40] LABS: BASOPHILS % 0.3 % (0.0-2.0); EOSINOPHILS % 0.4 % (0.0-7.0); HEMATOCRIT 34.9 % (42.0-52.0); HEMOGLOBIN 11.8 g/dl (14.0-18.0); LYMPHOCYTES # 1.3 10^3/ul (0.8-2.9); LYMPHOCYTES % 13.7 % (15.0-51.0); MEAN CORPUSCULAR HEMOGLOBIN 29.3 pg (29.0-33.0); MEAN CORPUSCULAR HGB CONC 33.8 g/dl (32.0-37.0); MEAN CORPUSCULAR VOLUME 86.6 fl (82.0-101.0); MEAN PLATELET VOLUME 12.4 fl (7.4-10.4); MONOCYTE # 0.9 10^3/ul (0.3-0.9); MONOCYTES % 9.8 % (0.0-11.0); NEUTROPHILS % 75.5 % (39.0-77.0); PLATELET COUNT 119 10^3/UL (140-415); RED BLOOD COUNT 4.03 10^6/ul (4.70-6.10); RED CELL DISTRIBUTION WIDTH 15.5 % (11.5-14.5); WHITE BLOOD COUNT 9.5 10^3/ul (4.8-10.8)
[2017-06-20 05:59] LABS: INR 1.16; PROTIME 14.8 Sec (12.2-14.2); PT RATIO 1.2
[2017-06-20 06:00] LABS: PARTIAL THROMBOPLASTIN TIME 32.4 Sec (25.0-35.0)
[2017-06-20 06:10] LABS: MAGNESIUM 1.7 mg/dl (1.7-2.5); PHOSPHORUS 4.6 mg/dl (2.5-4.9)
[2017-06-20] MEDS: morphine 2 MG INJ IV PRN ×3 (06:15→15:06)
[2017-06-20 06:16] LABS: ALBUMIN 3.5 g/dl (3.3-4.9); ALBUMIN/GLOBULIN RATIO 1.16; BILIRUBIN,INDIRECT 0.9 mg/dl (0-1.1); BILIRUBIN,TOTAL 0.9 mg/dl (0.2-1.3); CALCIUM 9.1 mg/dl (8.4-10.2); CREATININE 0.51 mg/dl (0.61-1.24); POTASSIUM 4.3 mmol/L (3.5-5.1); TOTAL PROTEIN 6.5 g/dl (6.1-8.1)
[2017-06-20 08:14] VITALS: BP 123/60; RESP 18
--- NOTE | 2017-06-20 08:42 | RADRPT ---
PROCEDURE: Nuclear medicine hepatobiliary scan CLINICAL INDICATION: Cholelithiasis, acute cholecystitis/obstruction. TECHNIQUE: 8.0 mCi of technetium-99m Choletec was administered intravenously. Planar imaging of t he hepatobiliary system was performed. Delayed images were obtained. Images were reviewed on the h igh resolution PACS workstation. COMPARISON: Abdominal ultrasound from earlier the same date. FINDINGS: There is normal and homogeneous uptake throughout the hepatobiliary system. There is normal emptyin g of radiotracer into the biliary tract. The common bile duct is normal. Gallbladder is not visual ized 295-minute delayed images.. There is visualization of the small bowel at 40 minutes. IMPRESSION: 1. Nonvisualization of the gallbladder out to 95 minutes suggesting acute cholecystitis, cystic sudha t obstruction. 2. Clearing of radionuclide from the biliary tree into the small bowel indicating a patent common b ile duct. RPTAT: [facility] Physician Justus Date Time Electronically viewed and signed by Physician Justus on 06/20/2017 08:41 /
[2017-06-20] MEDS: AMLODIPINE 5 MG TAB PO SCH (09:00)
[2017-06-20] MEDS: LINAGLIPTIN 5 MG TABLET PO SCH (09:00)
[2017-06-20] MEDS: FAMOTIDINE 20 MG INJ IV SCH ×2 (09:06→20:44)
--- NOTE | 2017-06-20 09:35 | PN ---
Date/Time of Note Date/Time of Note DATE: 06/20/17 TIME: 09:31 Assessment/Plan VTE Prophylaxis VTE Prophylaxis Intervention: SCD's Lines/Catheters IV Catheter Type (from [facility]): Peripheral IV Urinary Cath still in place: No Assessment/Plan Chief Complaint/Hosp Course 1. Acute abdominal pain. Ultrasound showing possible cholecystitis. Hepatobiliary surgery following the patient since the patient has known history of possible pancreatic mass. Continue antibiotics. HIDA scan suggesting acute cholecystitis. 2. Questionable pancreatic mass. The patient's tumor markers that was done on his previous admission in the beginning of this month was positive. The patient 's ERCP brushings were negative for any malignancy. The patient is scheduled to follow-up with hepatobiliary surgery as outpatient. Hepatobiliary surgery on the case. 3. Type 2 diabetes mellitus. The patient's oral medications will be put on hold. The patient will be continued on sliding scale insulin. 4. Essential hypertension. The patient will be continued on antihypertensives. 5. Anemia. Normocytic and hypochromic. We will monitor H&H closely. 6. Fluids, electrolytes, and nutrition. N.p.o. except medications. 7. DVT prophylaxis. Bilateral sequential compression devices. 8. Gastrointestinal prophylaxis. Proton pump inhibitors. 9. Plan. Continue pain control. Continue antibiotics. Await further recommendations from consultants. Case discussed with Dr. Ac. Problems: Subjective 24 Hr Interval Summary Free Text/Dictation Continues to have RUQ pain. Exam/Review of Systems Vital Signs Vitals Vital Signs Date Time Temp Pulse Resp B/P Pulse Ox O2 Delivery O2 Flow Rate FiO2 06/20/17 08:14 98.9 88 18 123/60 97 06/19/17 12:55 Room Air Intake and Output 06/19/17 06/19/17 06/20/17 15:00 23:00 07:00 Intake Total 500 ml 1060 ml Balance 500 ml 1060 ml Exam General: Adequately build 57 year-old male lying in bed in no apparent distress. HEENT: Normocephalic, atraumatic. Eyes: Anicteric sclerae, conjunctivae clear. ENT: Nasal septum midline, oral mucosa moist. Neck supple, no JVD noticed. Respiratory: Bilaterally clear breath sounds. No use of accessory muscles of respiration. No adventitious breath sounds. Cardiovascular: S1, S2 heard. No murmurs or gallops. Abdomen: Soft and nondistended. Bowel sounds positive in all 4 quadrants. Right upper quadrant tenderness. No guarding. Genitourinary: Deferred. Extremities: No cyanosis, no clubbing, no edema. Peripheral pulses palpable. Neurologic: Cranial nerves II through XII grossly intact. The patient is awake, alert, and oriented. Skin: Normal skin turgor. No skin rashes. Results Result Diagram: 06/20/17 0501 06/20/17 0501 Results 24 hrs Laboratory Tests Test 06/19/17 13:48 06/19/17 16:10 06/19/17 18:53 06/19/17 23:08 Bedside Glucose 156 173 146 138 Test 06/20/17 02:41 06/20/17 05:01 06/20/17 06:08 Bedside Glucose 141 153 White Blood Count 9.5 Red Blood Count 4.03 L Hemoglobin 11.8 L Hematocrit 34.9 L Mean Corpuscular Volume 86.6 Mean Corpuscular Hemoglobin 29.3 Mean Corpuscular Hemoglobin Concent 33.8 Red Cell Distribution Width 15.5 H Platelet Count 119 L Mean Platelet Volume 12.4 H Neutrophils % 75.5 Lymphocytes % 13.7 L Monocytes % 9.8 Eosinophils % 0.4 Basophils % 0.3 Nucleated Red Blood Cells % 0.0 Neutrophils # (Manual) 7 Lymphocytes # 1.3 Monocytes # 0.9 Eosinophils # 0.0 Basophils # 0.0 Nucleated Red Blood Cells # 0.0 Prothrombin Time 14.8 H Prothrombin Time Ratio 1.2 INR International Normalized Ratio 1.16 Activated Partial Thromboplast Time 32.4 Sodium Level 140 Potassium Level 4.3 Chloride Level 99 Carbon Dioxide Level 28 Anion Gap 17 H Blood Urea Nitrogen 7 Creatinine 0.51 L Glucose Level 153 Calcium Level 9.1 Phosphorus Level 4.6 Magnesium Level 1.7 Total Bilirubin 0.9 Direct Bilirubin 0.00 Indirect Bilirubin 0.9 Aspartate Amino Transf (AST/SGOT) 23 Alanine Aminotransferase (ALT/SGPT) 51 Alkaline Phosphatase 163 H Total Protein 6.5 # Albumin 3.5 Globulin 3.00 Albumin/Globulin Ratio 1.16 Amylase Level 48 Lipase 64 Medications Medications Current Medications Potassium Chloride/Sodium Chloride (NS-KCl 20 Meq) 1,000 ml @ 100 mls/hr Q10H IV Last administered on 06/20/17t 03:44; Admin Dose 100 MLS/HR; Start 06/19/17 at 10:39 Ondansetron HCl (Zofran Inj) 4 mg Q6H PRN IV NAUSEA AND/OR VOMITING; Start at 11:00 Acetaminophen (Tylenol Tab) 650 mg Q6H PRN PO PAIN LEVEL 1-3 OR FEVER; Start at 11:00 Acetaminophen/ Hydrocodone Bitart ([place] (5/325)) 1 tab Q6H PRN PO MODERATE PAIN LEVEL 4-6; Start 06/19/17 at 11:00 Morphine Sulfate (morphine) 2 mg Q4H PRN IV SEVERE PAIN LEVEL 7-10 Last administered on 06/20/17 06:15; Admin Dose 2 MG; Start 06/19/17 at 11:00 Bisacodyl (Dulcolax) 5 mg DAILY PRN PO CONSTIPATION; Start 06/19/17 at 11:00 Famotidine (Pepcid Iv) 20 mg Q12 IV Last administered on 06/20/17 09:06; Admin Dose 20 MG; Start 06/19/17 at 21:00 Amlodipine Besylate (Norvasc) 5 mg DAILY PO ; Start 06/20/17 at 09:00 Linagliptin (Tradjenta) 5 mg DAILY PO ; Start 06/19/17 at 13:00 Diagnostic Test (Pha) (Accu-Chek) 1 ea 02 XX ; Start 06/20/17 at 02:00 Insulin Aspart (Novolog Insulin Pen) NOVOLOG *MILD* ALGORITHM Q4H SC Last administered on 06/19/17 18:59; Admin Dose 1 UNIT; Start 06/19/17 at 11:00 Miscellaneous Information 1 ea NOTE XX ; Start 06/19/17 at 12:00 Glucose (Glutose) 15 gm Q15M PRN PO DECREASED GLUCOSE; Start 06/19/17 at 12:00 Glucose (Glutose) 22.5 gm Q15M PRN PO DECREASED GLUCOSE; Start 06/19/17 at 12: 00 Dextrose (D50w Syringe) 25 ml Q15M PRN IV DECREASED GLUCOSE; Start 06/19/17 at 12:00 Dextrose (D50w Syringe) 50 ml Q15M PRN IV DECREASED GLUCOSE; Start 06/19/17 at 12:00 Glucagon (Glucagen) 1 mg Q15M PRN IM DECREASED GLUCOSE; Start 06/19/17 at 12:00 Glucose (Glutose) 15 gm Q15M PRN BUCCAL DECREASED GLUCOSE; Start 06/19/17 at 12 :00 Hydralazine HCl (Apresoline) 10 mg Q6H PRN IV SBP>160; Start 06/19/17 at 12:30 RAUL MONACO NP Jun 20, 2017 09:34
[2017-06-20 14:00] VITALS: BP 134/90; RESP 16
[2017-06-20 19:34] VITALS: BP 156/85; RESP 20
--- NOTE | 2017-06-20 20:02 | PN ---
Date/Time of Note Date/Time of Note DATE: 06/20/17 TIME: 20:02 Assessment/Plan Lines/Catheters IV Catheter Type (from Nrsg): Peripheral IV William in Place (from Nrsg): No Assessment/Plan Assessment/Plan [facility] Progress Note Date of Service: 06/20/2017 Place of service: [facility] 6 floor Today's Assessment & Plan: Overall stable. No indication for acute surgical intervention. Awaiting adequate medical stabilization prior to discharge in order to get the patient to need an endoscopic ultrasound. Previous assessment that applies today: A very-pleasant 57-year-old gentleman well-known to me from prior recent admission to [facility] with comorbidities including DMII, previous ETOH abuse and h/o pancreatitis, likely due to a malignant process in the head of the pancreas, readmitted for abdominal pain. 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 I do not believe that the patient's gallbladder is the main reason for the pain, although certainly possible that it is contributing to the pain. Patient would benefit from previously planned endoscopic ultrasound evaluation of the head of the pancreas in order to further clarify the stage of his disease and to see if he is eligible for neoadjuvant chemotherapy plus, minus radiation therapy in an attempt to see if the patient can get to a Whipple procedure. In this setting, most if not all elective operations should be delayed, fortunately, I do not believe that the patient requires a cholecystectomy at this time. With above assessment, I've recommended the followin. Regular diet 2. Consider gastroenterology consultation 3. Treat symptoms 4. Discharge when medically stable to return to plans for obtaining endoscopic ultrasound evaluation. Patient may also benefit from potential lateral transfer to another hospital that has endoscopic ultrasound available for this purpose; please ask case management and social insurance specialist, as well as other hospital administration to investigate Thank you very much for having me involved in the care of this very pleasant patient and wonderful family. If you have any questions, please feel free to contact me at [phone]. Nature of presenting problem: High severity Please note that, given the multiple to extensive number of diagnoses or management options, the extensive amount and/or complexity of data needed to be reviewed, and high risk of complications and/or morbidity or mortality, this qualifies as high complexity type of decision-making. Disclaimer: Inadvertent spelling and grammatical errors are likely due to EHR/ dictation software use and do not reflect on the quality of delivered patient care. Also, please note that the electronic time recorded on this node does not necessarily reflect the actual time of the visit. Updated clinical summary: A very-pleasant 56-year-old gentleman with comorbidities including DMII, previous ETOH abuse and h/o pancreatitis, admitted for jaundice and abdominal pain and 100 pound weight loss. Status post ERCP 05/31/[address] [facility] [address] Macias with findings of high-grade narrowing in the distal common bile duct. Cytology brushings obtained (final pathology showed no obvious malignancy). Post endoscopic retrograde sphincterotomy and post placement f a 10 x 60 mm fully covered Wallstent. Comorbidities: 1. DMII 2. Prior reported pancreatitis 3. ETOH 4. Status post ERCP 05/31/[address] [facility] [address] Macias with findings of high-grade narrowing in the distal common bile duct. Cytology brushings obtained (final pathology showed no obvious malignancy). Post endoscopic retrograde sphincterotomy and post placement f a 10 x 60 mm fully covered Wallstent. Subjective: No major events or complaints; no major abd pain and under control with medications; no n/v/d; no sob or cp; + bowel activity; + activity Objective: Vitals: See below I's & O's: See below Exam: GENERAL: On exam, the patient was lying in bed and appeared to be comfortable and in no acute distress. ABDOMEN: Soft, nontender and nondistended. There are no peritoneal signs or guarding. SKIN: Skin appears to be pink and feels warm to touch. NEUROLOGIC: Patient is awake, alert, and follows commands appropriately. Labs: See below Exam/Review of Systems Vital Signs Vitals Vital Signs Date Time Temp Pulse Resp B/P Pulse Ox O2 Delivery O2 Flow Rate FiO2 06/20/17 19:34 99.1 80 20 156/85 100 06/19/17 12:55 Room Air Intake and Output 06/19/17 06/19/17 06/20/17 15:00 23:00 07:00 Intake Total 500 ml 1060 ml Balance 500 ml 1060 ml Results Result Diagram: 06/20/17 0501 06/20/17 0501 RENETTA CHEEMA M.D. Jun 20, 2017 20:02
--- NOTE | 2017-06-20 20:20 | PN ---
Date/Time of Note Date/Time of Note DATE: 06/20/17 TIME: 20:17 Assessment/Plan VTE Prophylaxis VTE Prophylaxis Intervention: SCD's Lines/Catheters IV Catheter Type (from [facility]): Peripheral IV Urinary Cath still in place: No Assessment/Plan Assessment/Plan Assessment: * Pancreatic mass likely malignant neoplasm * Biliary obstruction secondary to above. * Post ERCP with Wallstent/adequately functioning Plan: * Advance diet if tolerated safe for outpatient management * Awaiting EUS for staging and definitive therapy Subjective 24 Hr Interval Summary Free Text/Dictation Course reviewed with nursing staff Patient reports significant improvement in symptoms He is hungry and has not been offered any food Exam/Review of Systems Vital Signs Vitals Vital Signs Date Time Temp Pulse Resp B/P Pulse Ox O2 Delivery O2 Flow Rate FiO2 06/20/17 19:34 99.1 80 20 156/85 100 06/19/17 12:55 Room Air Intake and Output 06/19/17 06/19/17 06/20/17 15:00 23:00 07:00 Intake Total 500 ml 1060 ml Balance 500 ml 1060 ml Exam Constitutional: alert, oriented, well developed Psych: nl mood/affect, no complaints Head: atraumatic, normocephalic Eyes: EOMI, PERRL, nl conjunctiva, nl lids, nl sclera ENMT: nl external ears & nose, nl lips & teeth, nl nasal mucosa & septum Neck: non-tender, supple Respiratory: clear to auscultation, normal air movement Cardiovascular: nl pulses, regular rate and rhythm Gastrointestinal: bowel sounds, nl liver, spleen, non-tender, soft, No ascites, No distended, No hepatomegaly, No mass, No rebound or guarding Musculoskeletal: nl extremities to inspection, nl gait and stance Extremities: normal pulses Neurological: FLOOR[employer] LASTING II-XII intact, nl mental status, nl speech, nl strength Skin: nl turgor, No rash or lesions Lymph: nl lymph nodes Results Result Diagram: 06/20/17 0501 06/20/17 0501 Results 24 hrs Laboratory Tests Test 06/19/17 23:08 06/20/17 02:41 06/20/17 05:01 06/20/17 06:08 Bedside Glucose 138 141 153 White Blood Count 9.5 Red Blood Count 4.03 L Hemoglobin 11.8 L Hematocrit 34.9 L Mean Corpuscular Volume 86.6 Mean Corpuscular Hemoglobin 29.3 Mean Corpuscular Hemoglobin Concent 33.8 Red Cell Distribution Width 15.5 H Platelet Count 119 L Mean Platelet Volume 12.4 H Neutrophils % 75.5 Lymphocytes % 13.7 L Monocytes % 9.8 Eosinophils % 0.4 Basophils % 0.3 Nucleated Red Blood Cells % 0.0 Neutrophils # (Manual) 7 Lymphocytes # 1.3 Monocytes # 0.9 Eosinophils # 0.0 Basophils # 0.0 Nucleated Red Blood Cells # 0.0 Prothrombin Time 14.8 H Prothrombin Time Ratio 1.2 INR International Normalized Ratio 1.16 Activated Partial Thromboplast Time 32.4 Sodium Level 140 Potassium Level 4.3 Chloride Level 99 Carbon Dioxide Level 28 Anion Gap 17 H Blood Urea Nitrogen 7 Creatinine 0.51 L Glucose Level 153 Calcium Level 9.1 Phosphorus Level 4.6 Magnesium Level 1.7 Total Bilirubin 0.9 Direct Bilirubin 0.00 Indirect Bilirubin 0.9 Aspartate Amino Transf (AST/SGOT) 23 Alanine Aminotransferase (ALT/SGPT) 51 Alkaline Phosphatase 163 H Total Protein 6.5 # Albumin 3.5 Globulin 3.00 Albumin/Globulin Ratio 1.16 Amylase Level 48 Lipase 64 Test 06/20/17 10:55 06/20/17 14:57 06/20/17 18:58 Bedside Glucose 125 133 125 Medications Medications Current Medications Potassium Chloride/Sodium Chloride (NS-KCl 20 Meq) 1,000 ml @ 100 mls/hr Q10H IV Last administered on 06/20/17 14:55; Admin Dose 100 MLS/HR; Start 06/19/17 at 10:39 Ondansetron HCl (Zofran Inj) 4 mg Q6H PRN IV NAUSEA AND/OR VOMITING; Start at 11:00 Acetaminophen (Tylenol Tab) 650 mg Q6H PRN PO PAIN LEVEL 1-3 OR FEVER; Start at 11:00 Acetaminophen/ Hydrocodone Bitart ([place] (5/325)) 1 tab Q6H PRN PO MODERATE PAIN LEVEL 4-6; Start 06/19/17 at 11:00 Morphine Sulfate (morphine) 2 mg Q4H PRN IV SEVERE PAIN LEVEL 7-10 Last administered on 06/20/17 15:06; Admin Dose 2 MG; Start 06/19/17 at 11:00 Bisacodyl (Dulcolax) 5 mg DAILY PRN PO CONSTIPATION; Start 06/19/17 at 11:00 Famotidine (Pepcid Iv) 20 mg Q12 IV Last administered on 06/20/17t 09:06; Admin Dose 20 MG; Start 06/19/17 at 21:00 Amlodipine Besylate (Norvasc) 5 mg DAILY PO ; Start 06/20/17 at 09:00 Linagliptin (Tradjenta) 5 mg DAILY PO ; Start 06/19/17 at 13:00 Diagnostic Test (Pha) (Accu-Chek) 1 ea 02 XX ; Start 06/20/17 at 02:00 Miscellaneous Information 1 ea NOTE XX ; Start 06/19/17 at 12:00 Glucose (Glutose) 15 gm Q15M PRN PO DECREASED GLUCOSE; Start 06/19/17 at 12:00 Glucose (Glutose) 22.5 gm Q15M PRN PO DECREASED GLUCOSE; Start 06/19/17 at 12: 00 Dextrose (D50w Syringe) 25 ml Q15M PRN IV DECREASED GLUCOSE; Start 06/19/17 at 12:00 Dextrose (D50w Syringe) 50 ml Q15M PRN IV DECREASED GLUCOSE; Start 06/19/17 at 12:00 Glucagon (Glucagen) 1 mg Q15M PRN IM DECREASED GLUCOSE; Start 06/19/17 at 12:00 Glucose (Glutose) 15 gm Q15M PRN BUCCAL DECREASED GLUCOSE; Start 06/19/17 at 12 :00 Hydralazine HCl (Apresoline) 10 mg Q6H PRN IV SBP>160; Start 06/19/17 at 12:30 JOSÉ MIGUEL GREGORY MD Jun 20, 2017 20:20
[2017-06-21] MEDS: ACCU-CHEK XX SCH (01:26)
[2017-06-21] MEDS: NS + KCL 20 MEQ 1,000 ML IV SCH ×2 (01:38→12:08)
[2017-06-21] MEDS ORDERED: ACCU-CHEK XX SCH (02:00)
[2017-06-21 03:13] VITALS: BP 120/76; RESP 20
[2017-06-21 05:31] LABS: BASOPHILS % 0.3 % (0.0-2.0); EOSINOPHILS # 0.1 10^3/ul (0.0-0.5); EOSINOPHILS % 0.6 % (0.0-7.0); HEMOGLOBIN 11.2 g/dl (14.0-18.0); LYMPHOCYTES # 1.5 10^3/ul (0.8-2.9); LYMPHOCYTES % 19.4 % (15.0-51.0); MEAN CORPUSCULAR HEMOGLOBIN 29.3 pg (29.0-33.0); MEAN CORPUSCULAR HGB CONC 33.9 g/dl (32.0-37.0); MEAN CORPUSCULAR VOLUME 86.4 fl (82.0-101.0); MEAN PLATELET VOLUME 11.7 fl (7.4-10.4); MONOCYTE # 0.7 10^3/ul (0.3-0.9); MONOCYTES % 8.4 % (0.0-11.0); NEUTROPHILS % 70.9 % (39.0-77.0); PLATELET COUNT 108 10^3/UL (140-415); POSITIVE DIFF @See below; RED BLOOD COUNT 3.82 10^6/ul (4.70-6.10); RED CELL DISTRIBUTION WIDTH 15.7 % (11.5-14.5); WHITE BLOOD COUNT 7.8 10^3/ul (4.8-10.8)
[2017-06-21 06:04] LABS: ALBUMIN 3.1 g/dl (3.3-4.9); ALBUMIN/GLOBULIN RATIO 1.06; BILIRUBIN,INDIRECT 0.8 mg/dl (0-1.1); BILIRUBIN,TOTAL 0.8 mg/dl (0.2-1.3); CALCIUM 8.8 mg/dl (8.4-10.2); CREATININE 0.5 mg/dl (0.61-1.24); POTASSIUM 4.3 mmol/L (3.5-5.1)
[2017-06-21 06:06] LABS: MAGNESIUM 1.6 mg/dl (1.7-2.5); PHOSPHORUS 4.2 mg/dl (2.5-4.9)
[2017-06-21] MEDS: INSULIN ASPART [NOVOLOG] 3 ML PEN SC SCH ×2 (08:11→12:19)
[2017-06-21 08:16] VITALS: BP 107/64; RESP 18
[2017-06-21] MEDS: LINAGLIPTIN 5 MG TABLET PO SCH (08:40)
[2017-06-21] MEDS: FAMOTIDINE 20 MG INJ IV SCH (08:40)
[2017-06-21] MEDS: AMLODIPINE 5 MG TAB PO SCH (08:41)
[2017-06-21] MEDS ORDERED: MAGNESIUM SULFATE 2 GM/50 ML 50 ML IVPB ONE (11:30)
[2017-06-21 13:17] VITALS: BP 158/86; RESP 18
--- NOTE | 2017-06-21 14:02 | PDOCDIS ---
Discharge Instructions DIAGNOSIS Discharge Diagnosis Abdominal pain. CONDITION Patient Condition: Stable HOME CARE INSTRUCTIONS: Diet Instructions: Low Fat /CholesterolSpecial Diet: carb control , cardiac FOLLOW UP/APPOINTMENTS Follow-up Plan Mark Martinez MD Specialty General Surgery Office Address [address] [place] [id number] Office OTHER ORDERS: Other Orders: 1. Resume home medications. 2. Follow a low-cholesterol carbohydrate controlled diet. 3. Follow-up with Dr. Martinez as outpatient. 4. Activities as tolerated. 5. Go to the nearest emergency room if you continue to have significant abdominal pain. RAUL MONACO NP Jun 21, 2017 14:02
--- NOTE | 2017-06-21 18:20 | DS ---
DATE OF ADMISSION: 06/19/2017 DATE OF DISCHARGE: 06/21/2017 FINAL DIAGNOSES: 1. Acute abdominal pain. Most probably secondary to biliary colic. Status post evaluation by hepatobiliary surgery. 2. Questionable pancreatic mass. Outpatient followup pending. 3. Type 2 diabetes mellitus. 4. Essential hypertension. 5. Normocytic, hypochromic anemia. CONSULTANTS: 1. Mark Martinez MD, Hepatobiliary Surgery. 2. Felicia Macias MD, Gastroenterology. HOSPITAL COURSE: This is a 57-year-old, male with a past medical history of type 2 diabetes mellitus, essential hypertension, recently diagnosed intra and extrahepatic biliary ductal dilatation with a transition point, possibly a malignant lesion in the pancreas, status post ERCP and stent placement on 05/31/2017, who came to the emergency room with chief complaint of abdominal pain. The patient verbalized the abdominal pain as epigastric and worse in the right upper quadrant with radiation to the back. The patient verbalized the pain as 7/10. The patient tried [place] with minimal pain relief. The patient denied any associated vomiting, diarrhea, or constipation. He denied any associated fevers. The patient underwent a gallbladder ultrasound in the emergency room that showed distended gallbladder with gallbladder wall thickening and gallbladder sludge along with pericholecystic fluid. The patient had no evidence of any leukocytosis. Provided the patient's history of present illness and his comorbidities, a clinical decision was made to admit the patient to inpatient setting to have him further evaluated. The patient was admitted to inpatient medical surgical floor. Hepatobiliary surgery consult and gastroenterology consult was obtained. The patient was started on empiric antibiotics for any underlying acute cholecystitis. The patient underwent a HIDA scan that showed nonvisualization of gallbladder out to 95 minutes suggesting acute cholecystitis and cystic duct obstruction. The patient had no underlying transaminitis or hyperbilirubinemia. Hepatobiliary surgery recommended endoscopic ultrasound evaluation. The hospital does not have any endoscopic ultrasound available and so patient needs outpatient followup. Meanwhile, the patient was started on a regular consistency diet. The patient was able to tolerate a regular consistency diet without significant gastrointestinal symptoms. Therefore, a clinical decision was made to discharge the patient home to be followed up with outpatient gastroenterology and hepatobiliary surgery for further management of the patient's underlying intra and extrahepatic biliary ductal dilatation with possible pancreatic mass. The patient's antibiotics will be discontinued. The patient has underlying type 2 diabetes mellitus. He was maintained on sliding scale insulin with well controlled blood sugars. He was maintained on antihypertensives for his underlying hypertension. The patient was noticed to have normocytic hypochromic anemia. The patient's H and H remained stable. The patient had a stable hospital course. The patient was cleared by consultants to be discharged home. The patient denied any pain at the time of discharge. DISCHARGE DISPOSITION AND PLAN: The patient will be discharged home today. The patient was instructed to resume home medications. He was instructed to follow a low-cholesterol diet. He was instructed to follow up with Dr. Martinez as outpatient. He was instructed to resume activities as tolerated. He was instructed to go to the nearest emergency room if he continues to have significant abdominal pain. The patient verbalized understanding of his discharge instructions. DISCHARGE CONDITION: Stable. DISCHARGE MEDICATIONS: 1. Amlodipine 5 mg p.o. daily. 2. [place] 5/325 one tablet p.o. q.4 hours p.r.n. pain. 3. Januvia 100 mg p.o. daily. 4. Glipizide 5 mg p.o. before breakfast. 5. Metformin 1000 mg p.o. with breakfast and dinner. DIAGNOSTIC DATA: 1. Gallbladder ultrasound: Distended gallbladder with gallbladder sludge, gallbladder wall thickening, pericholecystic fluid, and a negative sonographic [place] sign. 2. HIDA scan: No visualization of gallbladder out to 95 minutes suggesting acute cholecystitis, cystic duct obstruction. 3. Chest x-ray: Normal chest radiograph. 4. Latest CBC: WBC 7.8, hemoglobin 11.2, hematocrit 33.0, platelet count 108. 5. Latest CMP: Sodium 140, potassium 4.3, chloride 100, carbon dioxide 20, anion gap 19, BUN 9, creatinine 0.54, glucose 120, calcium 8.8, phosphorus 4.2, magnesium 1.6, total bilirubin 0.8, indirect bilirubin 0.8, AST 89, alkaline phosphatase 158, ALT 45. At this time, I would like to thank all the consultants for seeing the patient, and providing clinical recommendations. The case and management of this patient were fully discussed with Dr. Ac. Dictated By: Kit Foreman NP /[place]/doreen /Document#: [id number] MTDD
--- NOTE | 2017-06-22 08:39 | PN ---
Date/Time of Note Date/Time of Note DATE: 06/21/17 TIME: 08:37 Assessment/Plan Lines/Catheters IV Catheter Type (from Nrsg): Saline Lock [place] in Place (from Nrsg): No Assessment/Plan Assessment/Plan [facility] Progress Note (late entry) Date of Service: 06/21/2017 Place of service: [facility] 6 floor Today's Assessment & Plan: Overall stable. No indication for acute surgical intervention. Okay to discharge home from my standpoint with plans of getting the patient to endoscopic ultrasound. Discussed with patient, his , and his daughter over the phone. Answered all questions. Patient and family appeared to understand and agreed with the plans. Previous assessment that applies today: A very-pleasant 57-year-old gentleman well-known to me from prior recent admission to [facility] with comorbidities including DMII, previous ETOH abuse and h/o pancreatitis, likely due to a malignant process in the head of the pancreas, readmitted for abdominal pain. 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 I do not believe that the patient's gallbladder is the main reason for the pain, although certainly possible that it is contributing to the pain. Patient would benefit from previously planned endoscopic ultrasound evaluation of the head of the pancreas in order to further clarify the stage of his disease and to see if he is eligible for neoadjuvant chemotherapy plus, minus radiation therapy in an attempt to see if the patient can get to a Whipple procedure. In this setting, most if not all elective operations should be delayed, fortunately, I do not believe that the patient requires a cholecystectomy at this time. With above assessment, I've recommended the followin. Regular diet 2. Consider gastroenterology consultation 3. Treat symptoms 4. Discharge home today and continue with plans for obtaining endoscopic ultrasound evaluation. Thank you very much for having me involved in the care of this very pleasant patient and wonderful family. If you have any questions, please feel free to contact me at [phone]. Nature of presenting problem: High severity Please note that, given the multiple to extensive number of diagnoses or management options, the extensive amount and/or complexity of data needed to be reviewed, and high risk of complications and/or morbidity or mortality, this qualifies as high complexity type of decision-making. Disclaimer: Inadvertent spelling and grammatical errors are likely due to EHR/ dictation software use and do not reflect on the quality of delivered patient care. Also, please note that the electronic time recorded on this node does not necessarily reflect the actual time of the visit. Updated clinical summary: A very-pleasant 56-year-old gentleman with comorbidities including DMII, previous ETOH abuse and h/o pancreatitis, admitted for jaundice and abdominal pain and 100 pound weight loss. Status post ERCP 05/31/2017 at [facility] by Dr. Macias with findings of high-grade narrowing in the distal common bile duct. Cytology brushings obtained (final pathology showed no obvious malignancy). Post endoscopic retrograde sphincterotomy and post placement f a 10 x 60 mm fully covered Wallstent. Comorbidities: 1. DMII 2. Prior reported pancreatitis 3. ETOH 4. Status post ERCP 05/31/2017 at [facility] by Dr. Macias with findings of high-grade narrowing in the distal common bile duct. Cytology brushings obtained (final pathology showed no obvious malignancy). Post endoscopic retrograde sphincterotomy and post placement f a 10 x 60 mm fully covered Wallstent. Subjective: No major events or complaints; no major abd pain and under control with medications; no n/v/d; no sob or cp; + bowel activity; + activity Objective: Vitals: See below I's & O's: See below Exam: GENERAL: On exam, the patient was standing up and appeared to be comfortable and in no acute distress. ABDOMEN: Soft, nontender and nondistended. There are no peritoneal signs or guarding. SKIN: Skin appears to be pink and feels warm to touch. NEUROLOGIC: Patient is awake, alert, and follows commands appropriately. Labs: See below Exam/Review of Systems Vital Signs Vitals Vital Signs Date Time Temp Pulse Resp B/P Pulse Ox O2 Delivery O2 Flow Rate FiO2 06/21/17 13:17 98.4 79 18 158/86 99 06/19/17 12:55 Room Air Intake and Output 06/21/17 06/21/17 06/22/17 15:00 23:00 07:00 Intake Total 550 ml 1260 ml Balance 550 ml 1260 ml Results Result Diagram: 06/21/17 0520 06/21/17 0520 RENETTA CHEEMA M.D. Jun 22, 2017 08:39
== END 2017-06-21 18:00 | disposition home or self-care (01) | DRG 444 ==
LOC: E/R 05:24 → MS2 10:22
PROVIDERS: ADMIT Internal Medicine; ATTEND Internal Medicine
DX: K81.0 Acute cholecystitis (principal); K83.1 Obstruction of bile duct; R17 Unspecified jaundice; D49.0 Neoplasm of unspecified behavior of digestive system; D64.9 Anemia, unspecified; E11.9 Type 2 diabetes mellitus without complications; F10.21 Alcohol dependence, in remission; R63.4 Abnormal weight loss; Z68.28 Body mass index [BMI] 28.0-28.9, adult
CPT/HCPCS: 36415; 71010; 76705; 78226; 80053; 81003; 82150; 82728; 82962; 83540; 83690; 83735; 84100; 84484; 85025; 85610; 85730; 93005; 96374; A9537; J0744; J1815; J2270; J3475; J3480